=== PATIENT | female | born 1970 | race Caucasian/White ===

== ENCOUNTER 2020-09-21 08:37 | Outpatient (REF) | payer OTHER, SELFPAY ==
[2020-09-21 08:56] LABS: COVID-19 Test Negative (Negative)
== END 2020-09-21 08:38 | disposition home or self-care (01) ==
LOC: HO.EMPCOV 08:37
PROVIDERS: PCP Internal Medicine; Visit Provider Internal Medicine
DX: Z20.828 Contact with and (suspected) exposure to other viral communicable diseases (principal)
CPT/HCPCS: 87635; C9803

== ENCOUNTER 2020-09-25 09:58 | Outpatient (REF) | payer OTHER, SELFPAY ==
[2020-09-25 10:17] LABS: COVID-19 Test Negative (Negative)
== END 2020-09-25 09:59 | disposition home or self-care (01) ==
LOC: HO.EMPCOV 09:58
PROVIDERS: Visit Provider Internal Medicine
DX: Z20.828 Contact with and (suspected) exposure to other viral communicable diseases (principal)
CPT/HCPCS: 87635; C9803

== ENCOUNTER → 2020-10-11 11:03 | Outpatient (BNVA) | payer OTHER, SELFPAY | PROVIDERS: PCP Internal Medicine; Referring Provider Internal Medicine; Visit Provider Student in an Organized Health Care Education/Training Program | DX: Z13.89 Encounter for screening for other disorder (principal) ==

== ENCOUNTER 2020-10-16 14:52 | Outpatient (REF) | payer OTHER, SELFPAY ==
[2020-10-16 15:10] LABS: COVID-19 Test Negative (Negative)
== END 2020-10-16 14:53 | disposition home or self-care (01) ==
LOC: HO.EMPCOV 14:52
PROVIDERS: PCP Internal Medicine; Visit Provider Internal Medicine
DX: Z20.828 Contact with and (suspected) exposure to other viral communicable diseases (principal)
CPT/HCPCS: 87635; C9803

== ENCOUNTER 2020-10-18 06:20 | Outpatient (REF) | payer OTHER, SELFPAY ==
[2020-10-18 11:04] LABS: MANUAL DIFF FLAG NO
[2020-10-18 11:10] LABS: Basophils Absolute Auto 0.1 X10*3/uL (0.0-0.2); Basophils Percent Auto 0.6 % (0-2); Eosinophils Absolute Auto 0.2 X10*3/uL (0.0-0.4); Eosinophils Percent Auto 1.9 % (0-4); Hematocrit 36.1 % (37-47); Hemoglobin 11.8 g/dl (12.0-16.0); Imm Gran Abs Auto 0.02 X10*3/uL (0.00-0.03); Imm Gran Pct Auto 0.2 % (0.0-0.4); Lymphocytes Absolute Auto 1.9 X10*3/uL (1.2-4.9); Lymphocytes Percent Auto 22.8 % (20-40); Mean Corpuscular HGB Conc 32.7 g/dl (31.0-35.0); Mean Corpuscular Hemoglobin 30.6 pg (27.0-33.0); Mean Corpuscular Volume 93.8 fL (80-98); Mean Platelet Volume 11.2 fL (9.4-12.3); Monocytes Absolute Auto 0.4 X10*3/uL (0.1-1.2); Neutrophils Absolute Auto 5.8 X10*3/uL (2.0-8.3); Neutrophils Percent Auto 69.5 % (45-73); Platelet Count 280 X10*3/uL (160-400); Red Blood Count 3.85 X10*6/uL (4.20-5.50); Red Cell Distribution Width 13.6 % (11.0-16.0); White Blood Count 8.3 X10*3/uL (4.8-10.8)
[2020-10-18 11:37] LABS: Alanine Aminotransferase 13 U/L (0-31); Albumin Level 4.7 g/dL (3.5-5.0); Alkaline Phosphatase 61 U/L (39-117); Anion Gap 13 (12-20); Aspartate Amino Transferase 16 U/L (5-31); Bilirubin Total 0.4 mg/dL (0.0-1.0); Blood Urea Nitrogen 16 mg/dL (9-16); C Reactive Protein 0.46 mg/dL (< or = 0.50); Calcium 9.6 mg/dL (8.4-10.2); Carbon Dioxide 28 mmol/L (22-29); Chloride 105 mmol/L (96-108); Estimated Glomerular Filt Rate > 60; Glucose Random 91 mg/dL (60-115); Potassium 4.5 mmol/l (3.3-5.1); Sodium 141 mmol/L (135-145); Total Protein 7.1 g/dL (6.5-8.0)
[2020-10-18 11:56] LABS: HBS Num1 40.57 mIU/mL (0-7.99); HBc Num1 0.16 S/CO (0.00-0.79); Hepatitis B Core Antibody Nonreactive (Nonreactive); ~HepC Num1 0.13 S/CO (0.00-0.79); ~Hepatitis B Surface Antibody REACTIVE (Nonreactive); ~Hepatitis C Antibody Nonreactive (Nonreactive)
[2020-10-18 12:01] LABS: Erythrocyte Sedimentation Rate 9 MM/HR (0-20)
[2020-10-18 12:02] LABS: HBsAGNum1 0.22 S/CO (0.00-0.99); Hepatitis A Antibody IgM 0.15 Index (0-0.79); Hepatitis B Surface Antigen Negative (Negative); ~Hepatitis A Antibody IgM Nonreactive (Nonreactive)
[2020-10-19 14:03] LABS: Antibody to SS-A Antigen <1.0 NEG AI (<1.0 NEG); Antibody to SS-B Antigen <1.0 NEG AI (<1.0 NEG)
[2020-10-21 17:18] LABS: TS Negative Control Passed; TS Panel A 1; TS Panel B 0; TS Positive Control Passed; TSpotTB Negative (SeeBelow)
[2020-10-24 08:17] LABS: Vitamin D 25-OH, D2 <4 ng/mL; Vitamin D 25-OH, D3 52 ng/mL; Vitamin D 25-OH, Total 52 ng/mL (30-100)
== END 2020-10-18 06:21 | disposition home or self-care (01) ==
LOC: HO.HMGCLDS 06:20
PROVIDERS: PCP Internal Medicine; Visit Provider Student in an Organized Health Care Education/Training Program
DX: M05.9 Rheumatoid arthritis with rheumatoid factor, unspecified (principal)
CPT/HCPCS: 36415; 80053; 82306; 85025; 85652; 86140; 86235; 86481; 86704; 86706; 86709; 86803; 87340

== ENCOUNTER 2020-11-07 09:11 | Outpatient (REF) | payer OTHER, SELFPAY ==
[2020-11-07 09:28] LABS: COVID-19 Test Negative (Negative)
== END 2020-11-07 09:12 | disposition home or self-care (01) ==
LOC: HO.EMPCOV 09:11
PROVIDERS: Visit Provider Internal Medicine
DX: Z20.822 Contact with and (suspected) exposure to COVID-19 (principal)
CPT/HCPCS: 36415; 87635; C9803

== ENCOUNTER → 2020-11-29 15:27 | Outpatient (BNVA) | payer BC, SELFPAY | PROVIDERS: PCP Internal Medicine; Visit Provider Student in an Organized Health Care Education/Training Program | DX: M05.9 Rheumatoid arthritis with rheumatoid factor, unspecified (principal); E55.9 Vitamin D deficiency, unspecified | CPT/HCPCS: 90471; 90670 ==

== ENCOUNTER 2020-12-26 08:51 | Outpatient (REF) | payer OTHER, SELFPAY ==
[2020-12-26 09:09] LABS: COVID-19 Test Negative (Negative)
== END 2020-12-26 08:52 | disposition home or self-care (01) ==
LOC: HO.EMPCOV 08:51
PROVIDERS: Visit Provider Internal Medicine
DX: Z11.52 Encounter for screening for COVID-19 (principal)
CPT/HCPCS: 36415; 87635; C9803

== ENCOUNTER 2021-04-09 08:44 | Outpatient (REF) | payer BC, SELFPAY ==
[2021-04-09 11:12] LABS: MANUAL DIFF FLAG NO
[2021-04-09 11:20] LABS: Basophils Absolute Auto 0.1 X10*3/uL (0.0-0.2); Basophils Percent Auto 0.7 % (0-2); Eosinophils Absolute Auto 0.2 X10*3/uL (0.0-0.4); Eosinophils Percent Auto 2.4 % (0-4); Hematocrit 36.6 % (37-47); Imm Gran Abs Auto 0.01 X10*3/uL (0.00-0.03); Imm Gran Pct Auto 0.1 % (0.0-0.4); Lymphocytes Absolute Auto 2.4 X10*3/uL (1.2-4.9); Lymphocytes Percent Auto 32.1 % (20-40); Mean Corpuscular HGB Conc 32.8 g/dl (31.0-35.0); Mean Corpuscular Hemoglobin 30.6 pg (27.0-33.0); Mean Corpuscular Volume 93.4 fL (80-98); Monocytes Absolute Auto 0.6 X10*3/uL (0.1-1.2); Monocytes Percent Auto 7.3 % (2-11); Neutrophils Absolute Auto 4.3 X10*3/uL (2.0-8.3); Neutrophils Percent Auto 57.4 % (45-73); Platelet Count 296 X10*3/uL (160-400); Red Blood Count 3.92 X10*6/uL (4.20-5.50); Red Cell Distribution Width 12.7 % (11.0-16.0); White Blood Count 7.6 X10*3/uL (4.8-10.8)
[2021-04-09 11:38] LABS: Alanine Aminotransferase 16 U/L (0-31); Albumin Level 4.5 g/dL (3.5-5.0); Alkaline Phosphatase 62 U/L (39-117); Anion Gap 13 (12-20); Aspartate Amino Transferase 19 U/L (5-31); Bilirubin Total 0.4 mg/dL (0.0-1.0); Blood Urea Nitrogen 11 mg/dL (9-16); C Reactive Protein 0.11 mg/dL (< or = 0.50); Calcium 9.6 mg/dL (8.4-10.2); Carbon Dioxide 24 mmol/L (22-29); Chloride 108 mmol/L (96-108); Estimated Glomerular Filt Rate > 60; Glucose Random 93 mg/dL (60-115); Potassium 4.5 mmol/L (3.3-5.1); Sodium 140 mmol/L (135-145); Total Protein 7.1 g/dL (6.5-8.0)
[2021-04-09 12:41] LABS: Erythrocyte Sedimentation Rate 11 MM/HR (0-20)
== END 2021-04-09 08:45 | disposition home or self-care (01) ==
LOC: HO.HMGCLDS 08:44
PROVIDERS: PCP Internal Medicine; Visit Provider Student in an Organized Health Care Education/Training Program
DX: M05.9 Rheumatoid arthritis with rheumatoid factor, unspecified (principal)
CPT/HCPCS: 36415; 80053; 85025; 85652; 86140

== ENCOUNTER → 2021-04-11 15:47 | Outpatient (BNVA) | payer BC, SELFPAY | PROVIDERS: PCP Internal Medicine; Visit Provider Student in an Organized Health Care Education/Training Program | DX: M05.9 Rheumatoid arthritis with rheumatoid factor, unspecified (principal) ==

== ENCOUNTER 2021-07-13 06:10 | Outpatient (REF) | payer BC, SELFPAY ==
[2021-07-13 11:29] LABS: Appearance Urine CLEAR; Color Urine YELLOW; Glucose Urine UA NEG (NEG); Leukocyte Esterase Urine NEG (NEG); Nitrite Urine NEG (NEG); Specific Gravity - Urine 1.015 (1.005-1.025); UACC Culture Trigger NO; Urine Blood TRACE (NEG); Urine Ketones NEG (NEG); Urine Protein NEG (NEG-TRACE)
[2021-07-13 11:29] LABS: MANUAL DIFF FLAG NO
[2021-07-13 11:38] LABS: Basophils Absolute Auto 0.1 X10*3/uL (0.0-0.2); Basophils Percent Auto 0.6 % (0-2); Eosinophils Absolute Auto 0.1 X10*3/uL (0.0-0.4); Eosinophils Percent Auto 1.5 % (0-4); Hematocrit 37.4 % (37-47); Hemoglobin 12.2 g/dl (12.0-16.0); Imm Gran Abs Auto 0.03 X10*3/uL (0.00-0.03); Imm Gran Pct Auto 0.3 % (0.0-0.4); Lymphocytes Absolute Auto 2.1 X10*3/uL (1.2-4.9); Lymphocytes Percent Auto 23.1 % (20-40); Mean Corpuscular HGB Conc 32.6 g/dl (31.0-35.0); Mean Corpuscular Hemoglobin 30.7 pg (27.0-33.0); Monocytes Absolute Auto 0.6 X10*3/uL (0.1-1.2); Monocytes Percent Auto 6.7 % (2-11); Neutrophils Absolute Auto 6.2 X10*3/uL (2.0-8.3); Neutrophils Percent Auto 67.8 % (45-73); Platelet Count 281 X10*3/uL (160-400); Red Blood Count 3.98 X10*6/uL (4.20-5.50); White Blood Count 9.1 X10*3/uL (4.8-10.8)
[2021-07-13 11:44] LABS: Estimated Average Glucose 114 mg/dL; Hemoglobin A1c % 5.6 %
[2021-07-13 11:58] LABS: Alanine Aminotransferase 21 U/L (0-31); Albumin Level 4.4 g/dL (3.5-5.0); Alkaline Phosphatase 59 U/L (39-117); Anion Gap 14 (12-20); Aspartate Amino Transferase 19 U/L (5-31); Bilirubin Total 0.3 mg/dL (0.0-1.0); Blood Urea Nitrogen 15 mg/dL (9-16); Calcium 9.2 mg/dL (8.4-10.2); Carbon Dioxide 24 mmol/L (22-29); Chloride 108 mmol/L (96-108); Cholesterol 187 mg/dL; Estimated Glomerular Filt Rate > 60; Glucose Fasting 106 mg/dL (60-99); HDL Cholesterol 37 mg/dL; LDL Cholesterol Calculated 120 mg/dl; Potassium 4.7 mmol/L (3.3-5.1); Sodium 141 mmol/L (135-145); Triglycerides 150 mg/dL
[2021-07-13 12:12] LABS: Vitamin D 25-OH Total 32.8 ng/mL (>30)
[2021-07-13 12:18] LABS: RBC Urine 0-2 /HPF (0); Squamous Epithelial Cell Urine 1+ /LPF; WBC Urine 0 /HPF (0-4)
== END 2021-07-13 06:11 | disposition home or self-care (01) ==
LOC: HO.HMGCLDS 06:10
PROVIDERS: PCP Internal Medicine; Visit Provider Student in an Organized Health Care Education/Training Program
DX: M05.9 Rheumatoid arthritis with rheumatoid factor, unspecified (principal); E78.00 Pure hypercholesterolemia, unspecified; R73.01 Impaired fasting glucose; E55.9 Vitamin D deficiency, unspecified
CPT/HCPCS: 36415; 80053; 80061; 81001; 82306; 83036; 84443; 85025; 86140

== ENCOUNTER → 2021-08-17 13:03 | Outpatient (BNVA) | payer BC, SELFPAY | PROVIDERS: PCP Internal Medicine; Visit Provider Nurse Practitioner Family ==

== ENCOUNTER 2021-09-20 15:03 | Outpatient (REF) | payer BC, SELFPAY ==
--- NOTE | ~2021-09-20 | MM_ITS ---
EXAMINATION: MM SCREENING DIGITAL BREAST TOMOSYNTHESIS, BILATERAL CLINICAL INFORMATION: Screening. Asymptomatic. The lifetime risk of breast cancer based on the Tyrer-Cuzick Model is 5%. COMPARISON: Mammography: 08/20/2019, 12/03/2016, 11/14/2015 TECHNIQUE: Digital breast tomosynthesis is performed in both the craniocaudal and mediolateral oblique views along with computer-aided detection (CAD). Synthesized 2D images are generated from the tomosynthesis. FINDINGS: There are scattered areas of fibroglandular density (ACR BI-RADS breast composition Category b). There are no significant masses, abnormal calcifications, or other abnormalities. No developing density or significant change from prior studies. Incidental chronic coarse calcifications right axillary nodes again seen, likely old granulomatous changes. MM/MM tomosynthesis screening BI IMPRESSION: No mammographic evidence of malignancy. ASSESSMENT: BI-RADS 2: Benign RECOMMENDATION: Routine annual mammography screening. This patient's information was entered into a reminder system with a target due date for their next mammogram.
== END 2021-09-20 15:04 | disposition home or self-care (01) ==
LOC: HO.MAMMO 15:03
PROVIDERS: Visit Provider Internal Medicine
DX: Z12.31 Encounter for screening mammogram for malignant neoplasm of breast (principal)
CPT/HCPCS: 77063; 77067

== ENCOUNTER 2021-09-24 11:49 | Outpatient (REF) | payer BC, SELFPAY ==
[2021-09-24 12:43] LABS: Influenza A PCR NEGATIVE (Negative); Influenza B PCR NEGATIVE (Negative); Resp Syncy Virus RNA Qual PCR NEGATIVE (Negative); SARS COV2 PCR INHOUSE NEGATIVE (Negative)
== END 2021-09-24 11:50 | disposition home or self-care (01) ==
LOC: HO.LNP 11:49
PROVIDERS: Visit Provider Physician Assistant Medical
DX: J06.9 Acute upper respiratory infection, unspecified (principal); Z20.822 Contact with and (suspected) exposure to COVID-19
CPT/HCPCS: 0241U

== ENCOUNTER 2021-12-24 06:47 | Outpatient (REF) | payer OTHER, SELFPAY ==
[2021-12-24 11:31] LABS: MANUAL DIFF FLAG NO
[2021-12-24 11:34] LABS: Basophils Absolute Auto 0.1 X10*3/uL (0.0-0.2); Basophils Percent Auto 0.5 % (0-2); Eosinophils Absolute Auto 0.1 X10*3/uL (0.0-0.4); Eosinophils Percent Auto 1.4 % (0-4); Hemoglobin 12.7 g/dl (12.0-16.0); Imm Gran Abs Auto 0.03 X10*3/uL (0.00-0.03); Imm Gran Pct Auto 0.3 % (0.0-0.4); Lymphocytes Absolute Auto 2.8 X10*3/uL (1.2-4.9); Lymphocytes Percent Auto 29.6 % (20-40); Mean Corpuscular HGB Conc 32.6 g/dl (31.0-35.0); Mean Corpuscular Hemoglobin 30.2 pg (27.0-33.0); Mean Corpuscular Volume 92.6 fL (80.0-98.0); Mean Platelet Volume 11.4 fL (9.4-12.3); Monocytes Absolute Auto 0.6 X10*3/uL (0.1-1.2); Monocytes Percent Auto 6.2 % (2-11); Neutrophils Absolute Auto 5.9 x10*3/uL (2.0-8.3); Platelet Count 317 X10*3/uL (160-400); Red Blood Count 4.21 X10*6/uL (4.20-5.50); Red Cell Distribution Width 13.1 % (11.0-16.0); White Blood Count 9.5 X10*3/uL (4.8-10.8)
[2021-12-24 12:02] LABS: Alanine Aminotransferase 13 U/L (0-31); Albumin Level 4.5 g/dL (3.5-5.0); Alkaline Phosphatase 74 U/L (39-117); Anion Gap 12 (12-20); Aspartate Amino Transferase 18 U/L (5-31); Bilirubin Total 0.3 mg/dL (0.0-1.0); Blood Urea Nitrogen 12 mg/dL (9-16); C Reactive Protein 0.14 mg/dL (< or = 0.50); Calcium 9.8 mg/dL (8.4-10.2); Carbon Dioxide 22 mmol/L (22-29); Chloride 108 mmol/L (96-108); Cholesterol 170 mg/dL; Estimated Glomerular Filt Rate > 60; Glucose Fasting 102 mg/dL (60-99); HDL Cholesterol 28 mg/dL; LDL Cholesterol Calculated 109 mg/dl; Potassium 4.2 mmol/L (3.3-5.1); Sodium 138 mmol/L (135-145); Total Protein 7.3 g/dL (6.5-8.0); Triglycerides 169 mg/dL
[2021-12-24 12:09] LABS: TSH reflex Free T4 2.55 uIU/mL (0.32-4.0)
[2021-12-24 12:16] LABS: Erythrocyte Sedimentation Rate 13 MM/HR (0-20)
[2021-12-24 12:20] LABS: Estimated Average Glucose 117 mg/dL; Hemoglobin A1c % 5.7 %
== END 2021-12-24 06:48 | disposition home or self-care (01) ==
LOC: HO.HMGCLDS 06:47
PROVIDERS: PCP Internal Medicine; Visit Provider Nurse Practitioner Family
DX: Z00.00 Encounter for general adult medical examination without abnormal findings (principal); R73.01 Impaired fasting glucose; E78.00 Pure hypercholesterolemia, unspecified; E55.9 Vitamin D deficiency, unspecified; M05.9 Rheumatoid arthritis with rheumatoid factor, unspecified
CPT/HCPCS: 36415; 80053; 80061; 82306; 83036; 84443; 85025; 85652; 86140

== ENCOUNTER → 2021-12-27 07:45 | Outpatient (BNVA) | payer OTHER, SELFPAY | PROVIDERS: PCP Internal Medicine; Visit Provider Nurse Practitioner Family ==

== ENCOUNTER 2022-05-10 06:57 | Outpatient (REF) | payer OTHER, SELFPAY ==
[2022-05-10 11:46] LABS: MANUAL DIFF FLAG NO
[2022-05-10 11:49] LABS: Basophils Absolute Auto 0.1 X10*3/uL (0.0-0.2); Basophils Percent Auto 0.5 % (0-2); Eosinophils Absolute Auto 0.1 X10*3/uL (0.0-0.4); Eosinophils Percent Auto 1.4 % (0-4); Hematocrit 38.4 % (37.0-47.0); Hemoglobin 12.9 g/dl (12.0-16.0); Imm Gran Abs Auto 0.04 X10*3/uL (0.00-0.03); Imm Gran Pct Auto 0.4 % (0.0-0.4); Lymphocytes Absolute Auto 2.5 X10*3/uL (1.2-4.9); Lymphocytes Percent Auto 26.2 % (20-40); Mean Corpuscular HGB Conc 33.6 g/dl (31.0-35.0); Mean Corpuscular Hemoglobin 31.4 pg (27.0-33.0); Mean Corpuscular Volume 93.4 fL (80.0-98.0); Mean Platelet Volume 10.9 fL (9.4-12.3); Monocytes Absolute Auto 0.5 X10*3/uL (0.1-1.2); Monocytes Percent Auto 5.7 % (2-11); Neutrophils Absolute Auto 6.3 x10*3/uL (2.0-8.3); Neutrophils Percent Auto 65.8 % (45-73); Platelet Count 331 X10*3/uL (160-400); Red Blood Count 4.11 X10*6/uL (4.20-5.50); Red Cell Distribution Width 13.2 % (11.0-16.0); White Blood Count 9.5 X10*3/uL (4.8-10.8)
[2022-05-10 12:27] LABS: Alanine Aminotransferase 19 U/L (0-31); Albumin Level 4.5 g/dL (3.5-5.0); Alkaline Phosphatase 69 U/L (39-117); Anion Gap 13 (12-20); Aspartate Amino Transferase 20 U/L (5-31); Bilirubin Total 0.4 mg/dL (0.0-1.0); Blood Urea Nitrogen 13 mg/dL (9-16); C Reactive Protein 0.06 mg/dL (< or = 0.50); Calcium 9.3 mg/dL (8.4-10.2); Carbon Dioxide 22 mmol/L (22-29); Chloride 110 mmol/L (96-108); Cholesterol 181 mg/dL; Estimated Glomerular Filt Rate > 60; Glucose Fasting 111 mg/dL (60-99); HDL Cholesterol 34 mg/dL; LDL Cholesterol Calculated 122 mg/dl; Potassium 4.7 mmol/L (3.3-5.1); Sodium 140 mmol/L (135-145); Total Protein 7.2 g/dL (6.5-8.0); Triglycerides 129 mg/dL
[2022-05-10 12:39] LABS: Erythrocyte Sedimentation Rate 7 MM/HR (0-20)
== END 2022-05-10 06:58 | disposition home or self-care (01) ==
LOC: HO.HMGCLDS 06:57
PROVIDERS: PCP Internal Medicine; Visit Provider Nurse Practitioner Family
DX: M05.9 Rheumatoid arthritis with rheumatoid factor, unspecified (principal); E78.00 Pure hypercholesterolemia, unspecified
CPT/HCPCS: 36415; 80053; 80061; 85025; 85652; 86140

== ENCOUNTER 2022-09-09 06:40 | Outpatient (REF) | payer OTHER, SELFPAY ==
[2022-09-09 11:30] LABS: MANUAL DIFF FLAG NO
[2022-09-09 11:47] LABS: Basophils Absolute Auto 0.1 X10*3/uL (0.0-0.2); Basophils Percent Auto 0.7 % (0-2); Eosinophils Absolute Auto 0.1 X10*3/uL (0.0-0.4); Eosinophils Percent Auto 1.6 % (0-4); Hematocrit 37.6 % (37.0-47.0); Hemoglobin 12.2 g/dl (12.0-16.0); Imm Gran Abs Auto 0.01 X10*3/uL (0.00-0.03); Imm Gran Pct Auto 0.1 % (0.0-0.4); Lymphocytes Percent Auto 28.6 % (20-40); Mean Corpuscular HGB Conc 32.4 g/dl (31.0-35.0); Mean Corpuscular Hemoglobin 30.5 pg (27.0-33.0); Mean Platelet Volume 10.8 fL (9.4-12.3); Monocytes Absolute Auto 0.4 X10*3/uL (0.1-1.2); Monocytes Percent Auto 6.3 % (2-11); Neutrophils Absolute Auto 4.4 x10*3/uL (2.0-8.3); Neutrophils Percent Auto 62.7 % (45-73); Platelet Count 289 X10*3/uL (160-400); Red Cell Distribution Width 13.2 % (11.0-16.0)
[2022-09-09 12:28] LABS: Alanine Aminotransferase 15 U/L (0-31); Aspartate Amino Transferase 14 U/L (5-31); Erythrocyte Sedimentation Rate 7 MM/HR (0-20); Estimated Glomerular Filt Rate > 60; Vitamin D 25-OH Total 20.4 ng/mL (>30)
== END 2022-09-09 06:41 | disposition home or self-care (01) ==
LOC: HO.HMGCLDS 06:40
PROVIDERS: PCP Internal Medicine; Visit Provider Nurse Practitioner Family
DX: M05.9 Rheumatoid arthritis with rheumatoid factor, unspecified (principal); Z79.899 Other long term (current) drug therapy
CPT/HCPCS: 36415; 82306; 82565; 84450; 84460; 85025; 85652; 86140

== ENCOUNTER 2022-09-26 14:46 | Outpatient (REF) | payer OTHER, SELFPAY ==
--- NOTE | ~2022-09-26 | MM_ITS ---
EXAMINATION: MM SCREENING DIGITAL BREAST TOMOSYNTHESIS, BILATERAL CLINICAL INFORMATION: Screening. Asymptomatic. The lifetime risk of breast cancer based on the Tyrer-Cuzick Model is 4.7%. COMPARISON: Mammography: September 20, 2021 and studies dating back to September 28, 2014 TECHNIQUE: Digital breast tomosynthesis is performed in both the craniocaudal and mediolateral oblique views along with computer-aided detection (CAD). Synthesized 2D images are generated from the tomosynthesis. FINDINGS: There are scattered areas of fibroglandular density (ACR BI-RADS breast composition Category b). There are no significant masses, abnormal calcifications, or other abnormalities. MM/MM tomosynthesis screening BI IMPRESSION: No significant changes from prior exam. ASSESSMENT: BI-RADS 1: Negative RECOMMENDATION: Routine annual mammography screening. This patient's information was entered into a reminder system with a target due date for their next mammogram.
--- NOTE | ~2022-09-26 | MM_ITS ---
EXAMINATION: BONE DENSITOMETRY CLINICAL INDICATION: Asymptomatic menopausal state. COMPARISON: Previous BD dated 07/01/2017 and baseline BD dated 05/09/2014. TECHNIQUE: Using a [employer] DXA System (software version: 13.1) manufactured by [employer], dual-energy x-ray absorptiometry was performed of the lumbar spine and left hip. The images are of good technical quality. Summary results are attached. FINDINGS: AP SPINE L1-L4: Current: BMD 0.910 g/cm2, Z-score -1.5, T-score -2.2, osteopenia, 10.3% decrease from previous, 11.9% decrease from baseline (<5% change is not significant). Prior: BMD 1.014 g/cm2. Baseline: BMD 1.033 g/cm2. LEFT FEMUR, NECK: Current: BMD 0.692 g/cm2, Z-score -1.5, T-score -2.5, osteoporosis. Prior: BMD 0.778 g/cm2. Baseline: BMD 0.801 g/cm2. LEFT FEMUR, TOTAL: Current: BMD 0.697 g/cm2, Z-score -1.8, T-score -2.5, osteoporosis, 6.2% decrease from previous, 7.4% decrease from baseline (<5% change is not significant). Prior: BMD 0.743 g/cm2. Baseline: BMD 0.753 g/cm2. IDENTIFIED RISK FACTORS: Low calcium intake, history of fracture (adult). Early menopause, secondary osteoporosis, glucocorticoids (chronic). HISTORY OF FRACTURE: Humerus/shoulder. MEDICATIONS: Calcium supplements or multivitamin, vitamin D. MM/XR DEXA axial skeleton IMPRESSION: 1. DIAGNOSIS: Osteoporosis based on the lowest T-score value of -2.5 in the femoral neck and total femur applying World Health Organization criteria. 2. 10-YEAR FRACTURE RISK PREDICTION, FRAX: According to the guidelines, FRAX calculation should only be performed on patients in the osteopenia bone density category. Therefore, FRAX was not performed on this patient. 3. Treatment Recommendations: NOF guidelines recommend consideration for treatment in postmenopausal women and men age 50 and older presenting with the following: -A hip or vertebral (clinical or morphometric) fracture. -T-score less than or equal to -2.5 at the femoral neck or spine after appropriate evaluation to exclude secondary causes. -Low bone mass at the hip or spine and a 10-year fracture probability by FRAX of greater than or equal to 3% for hip fracture or greater than or equal to 20% for major osteoporotic fracture based on the [place] adapted WHO algorithm. 4. Other Recommendations: All treatment decisions require clinical judgment and consideration of individual patient factors, including patient preferences, comorbidities, previous drug use, risk factors not captured in the FRAX model (e.g. frailty, falls, vitamin D deficiency, increased bone turnover, interval significant decline in bone density) and possible under or overestimation of fracture risk by FRAX. Additional medical evaluation for secondary cause of low bone mineral density may be appropriate. FUTURE SCAN RECOMMENDATION: People with diagnosed cases of osteoporosis or at high risk for fracture should have regular bone mineral density tests. For patients eligible for Medicare, routine testing is allowed once every 2 years. The testing frequency can be increased to one year for patients who have rapidly progressing disease, those who are receiving or discontinuing medical therapy to restore bone mass, or have additional risk factors.
== END 2022-09-26 14:47 | disposition home or self-care (01) ==
LOC: HO.MAMMO 14:46
PROVIDERS: PCP Internal Medicine; Visit Provider Internal Medicine
DX: Z12.31 Encounter for screening mammogram for malignant neoplasm of breast (principal); Z13.820 Encounter for screening for osteoporosis; Z78.0 Asymptomatic menopausal state; M85.80 Other specified disorders of bone density and structure, unspecified site; M05.9 Rheumatoid arthritis with rheumatoid factor, unspecified
CPT/HCPCS: 77063; 77067; 77080

== ENCOUNTER → 2022-11-27 13:51 | Outpatient (BNVA) | payer OTHER, SELFPAY | PROVIDERS: PCP Internal Medicine; Visit Provider Nurse Practitioner Family | DX: Z13.89 Encounter for screening for other disorder (principal) ==

== ENCOUNTER → 2022-12-02 15:38 | Outpatient (BNVA) | payer OTHER, SELFPAY | PROVIDERS: PCP Internal Medicine; Visit Provider Nurse Practitioner Family | DX: Z13.89 Encounter for screening for other disorder (principal) ==

== ENCOUNTER 2023-01-31 06:24 | Outpatient (REF) | payer OTHER, SELFPAY ==
[2023-01-31 11:32] LABS: MANUAL DIFF FLAG NO
[2023-01-31 11:56] LABS: Basophils Absolute Auto 0.1 X10*3/uL (0.0-0.2); Basophils Percent Auto 0.6 % (0-2); Eosinophils Absolute Auto 0.2 X10*3/uL (0.0-0.4); Eosinophils Percent Auto 1.8 % (0-4); Hematocrit 37.6 % (37.0-47.0); Hemoglobin 12.4 g/dl (12.0-16.0); Imm Gran Abs Auto 0.06 X10*3/uL (0.00-0.03); Imm Gran Pct Auto 0.7 % (0.0-0.4); Lymphocytes Absolute Auto 2.4 X10*3/uL (1.2-4.9); Lymphocytes Percent Auto 28.8 % (20-40); Mean Corpuscular Hemoglobin 30.5 pg (27.0-33.0); Mean Corpuscular Volume 92.6 fL (80.0-98.0); Mean Platelet Volume 10.7 fL (9.4-12.3); Monocytes Absolute Auto 0.6 X10*3/uL (0.1-1.2); Monocytes Percent Auto 6.6 % (2-11); Neutrophils Absolute Auto 5.2 x10*3/uL (2.0-8.3); Neutrophils Percent Auto 61.5 % (45-73); Platelet Count 286 X10*3/uL (160-400); Red Blood Count 4.06 X10*6/uL (4.20-5.50); Red Cell Distribution Width 13.2 % (11.0-16.0); White Blood Count 8.5 X10*3/uL (4.8-10.8)
[2023-01-31 12:34] LABS: Estimated Average Glucose 120 mg/dL; Hemoglobin A1c % 5.8 %
[2023-01-31 12:35] LABS: Alanine Aminotransferase 26 U/L (0-31); Albumin Level 4.4 g/dL (3.5-5.0); Alkaline Phosphatase 64 U/L (39-117); Anion Gap 11 (12-20); Aspartate Amino Transferase 22 U/L (5-31); Bilirubin Total 0.5 mg/dL (0.0-1.0); Blood Urea Nitrogen 11 mg/dL (9-16); Calcium 9.5 mg/dL (8.4-10.2); Carbon Dioxide 26 mmol/L (22-29); Chloride 110 mmol/L (96-108); Cholesterol 174 mg/dL; Estimated Glomerular Filt Rate > 60; Glucose Fasting 103 mg/dL (60-99); Glucose Random 104 mg/dL (60-115); HDL Cholesterol 29 mg/dL; LDL Cholesterol Calculated 110 mg/dl; Potassium 4.6 mmol/L (3.3-5.1); Sodium 142 mmol/L (135-145); Total Protein 6.8 g/dL (6.5-8.0); Triglycerides 175 mg/dL
[2023-01-31 12:41] LABS: TSH reflex Free T4 2.74 uIU/mL (0.32-4.0); Vitamin D 25-OH Total 15.4 ng/mL (>30)
== END 2023-01-31 06:25 | disposition home or self-care (01) ==
LOC: HO.HMGCLDS 06:24
PROVIDERS: Absent Provider Nurse Practitioner Family; PCP Internal Medicine; Visit Provider Internal Medicine
DX: I10 Essential (primary) hypertension (principal); E78.00 Pure hypercholesterolemia, unspecified; R73.01 Impaired fasting glucose; E55.9 Vitamin D deficiency, unspecified; M05.9 Rheumatoid arthritis with rheumatoid factor, unspecified
CPT/HCPCS: 36415; 80053; 80061; 82306; 83036; 84443; 85025

== ENCOUNTER 2023-05-03 11:36 | Outpatient (REF) | payer OTHER, SELFPAY ==
[2023-05-03 13:37] LABS: C Reactive Protein 0.16 mg/dL (< or = 0.50)
[2023-05-03 14:27] LABS: Erythrocyte Sedimentation Rate 10 MM/HR (0-20)
== END 2023-05-03 11:37 | disposition home or self-care (01) ==
LOC: HO.HMGCLDS 11:36
PROVIDERS: PCP Internal Medicine; Visit Provider Nurse Practitioner Family
DX: M05.9 Rheumatoid arthritis with rheumatoid factor, unspecified (principal)
CPT/HCPCS: 36415; 85652; 86140

== ENCOUNTER 2023-05-06 14:22 | Outpatient (AMB) | payer OTHER, SELFPAY ==
[2023-05-06 14:33] VITALS: BP 108/62; PULSE 76; TEMP 36.9; O2SAT 98; BMI 25.1
--- NOTE | 2023-05-06 14:33 | MHC.OFFVIS ---
Intake Vital Signs 05/06/23 14:33 Height 5 ft 3 in Weight 141 lb 12.116 oz BMI 25.1 BP 108/62 Blood Pressure Location Rt brachial Position Sitting Pulse 76 Pulse Source Pulse Oximeter Temp 98.4 F Temp Source Skin Pulse Oximetry (%) 98 Intake Visit Reasons: rheumatoid arthritis Intake Note: Pt seen today for RA follow up. Reports PCP referred her to ENDO for Osteopenia, but at last visit Andreea mentioned to her that she could also manage her Osteopenia. Manager [employer] Required: No Accompanied by: Self / Same As Patient Allergies acetaminophen [From VICODIN] Allergy (Intermediate, Verified 05/06/23 14:36) ITCHING hydrocodone [From VICODIN] Allergy (Intermediate, Verified 05/06/23 14:36) ITCHING tylenol Allergy (Intermediate, Uncoded 05/06/23 14:36) Itching vicodin Allergy (Intermediate, Uncoded 05/06/23 14:36) Itching Medication List - Last Reconciled 05/06/23 by Christi Antoine MD atorvastatin 40 mg PO DAILY 90 days bisacodyl (Dulcolax (bisacodyl)) 10 mg (2 x 5 mg) PO ONCE 1 day cholecalciferol (vitamin D3) 125 mcg PO QWEEK 90 days etanercept (Enbrel SureClick) 50 mg subcut QWEEK gabapentin 300 mg PO BEDTIME 90 days latanoprost 0.005% 1 drp ophthalmic (eye) BEDTIME lorazepam 1 mg PO BEDTIME PRN 90 days nadolol 40 mg (2 x 20 mg) PO DAILY 90 days paroxetine HCl 40 mg PO DAILY 90 days polyethylene glycol 3350 (Miralax) 238 grams PO ONCE sumatriptan succinate 50 mg PO Q2-4H PRN 90 days umeclidinium-vilanterol 62.5-25 mcg/actuation (Anoro Ellipta) 1 inh inhalation Q24H 90 days HPI HPI Comments History of Present Illness Details 52-year-old female with seropositive RA returns for follow-up. Doing about the same overall. Continues to have pain and stiffness in her hands and fingers. Morning stiffness lasting 1-2 hours. She takes naproxen 440 mg 3 to 4 times a week to help with her morning stiffness. Denies any significant joint swelling. Compliant with Enbrel. She states that she feels that Enbrel worked better initially. Patient states that she was diagnosed with COPD many years ago. Over the last year she has been getting slightly more short of breath. She states that she lives in a 3 story house and going up 3 flights of stairs gets her out of breath. She wants to discuss treatment options for osteoporosis. As perlast visit with Monet philippe: On Enbrel. She is tolerating Enbrel well. Patient admits to intermittent continued morning stiffness and pain in her hands that she states is minimal. She reports pain and swelling in the left 3rd PIP that started 3 weeks ago, she states the whole finger swelled and she had to cut her ring off. She states that swelling is resolving and she still has some discomfort with a rubber band tension feeling, range of motion and pain are improving. She states that her back pain is stable at this time. She went to [place] last week and states she felt great. She states that she has an appt with endocrine next month for newly diagnosed osteoporosis. She reports she does plan to have invasive dental work- root canal and crown in the next few weeks. She follows optalmology for glaucoma and severe dry eye, every 3 months. She denies history of iritis, uveitis, inflammatory bowel, Raynaud's or oral ulcers. She plans to complete monitoring blood work for her PCP next month. [facility] Medical History (Updated 05/06/23 @ 15:55 by Christi Antoine MD) Anxiety COPD (chronic obstructive pulmonary disease) Impaired fasting glucose Migraine Osteopenia Pure hypercholesterolemia Seropositive rheumatoid arthritis Shortness of breath Vitamin D deficiency Surgical History Previous section S/P anal fissurectomy Status post left foot surgery Family History Father Hyperlipidemia Paternal Grandfather Cardiovascular disease Social History Housing: Apartment Alcohol intake: current Alcohol intake frequency: holidays/special occasions only Alcohol type: wine Patient Tobacco Use Status: Former Tobacco user Tobacco use type: Cigarette Cigarettes Per Day: 20 Years Smoked: 20 e-Cigarette/Vaping Use: Never Used Second Hand Smoke Exposure: No service: No Current occupational status: employed Cognitive needs: No Hearing needs: No Vision needs: No Review of Systems Card Reports dyspnea on exertion Resp Reports dyspnea on exertion Musc Reports arthralgias and Reports stiffness Physical Exam Vital Signs: Last Vital Signs Temp 98.4 F 05/06/23 14:33 Pulse 76 05/06/23 14:33 BP 108/62 05/06/23 14:33 Pulse Ox 98 05/06/23 14:33 BMI result Body Mass Index 25.1 Const General: cooperative, healthy appearing and comfortable Nutritional Appearance: average body habitus Orientation/consciousness: patient oriented x3 Limitations: no limitations HEENT Head: Yes normocephalic and Yes atraumatic Mouth: moist mucous membranes Resp Effort & Inspection: normal respiratory effort and able to speak in complete sentences Auscultation: clear to auscultation bilaterally Cardio Rate: regular rate Rhythm: regular rhythm Heart sounds: S1 normal heart sound present GI Inspection: No distended Palpation (GI): Soft to palpation and nontender Neuro General: patient oriented x3 Extrem Other: Left wrist pain with full flexion Left 5th MCP tenderness and minimal swelling Left 3rd PIP tenderness and swelling. No DIP tenderness Right wrist pain with full flexion Right 5th MCP tenderness and minimal swelling Patient global 5 Physician global 4 Assessment & Plan Assessment & Plan (1) Seropositive rheumatoid arthritis: Comment: +RF-ve REPACKER dx around 2018 Arava 12/2019- 11/2020 unclear why stopped. Oral and subcutaneous methotrexate- GI upset and headaches Humira -07/2021 ineffective Enbrel - 07/2021- present Code(s): M05.9 - Rheumatoid arthritis with rheumatoid factor, unspecified Plan: Seropositive rheumatoid arthritis (+ RF, CCP-). X-rays of hands with periarticular osteopenia. Patient continues to have joint pain and morning stiffness of her hands. Multiple tender joints on exam. Inflammatory markers normal. Start prednisone therapeutic taper trial for 3 weeks. Advised patient to call the office after completion of the taper and report her symptoms. If there is significant improvement then will consider modifying her DMARD Twenty-five pack year smoking history. History of COPD. Quit in 2004. Respiratory symptoms getting slightly worse. Ordered PFTs to evaluate for underlying interstitial lung disease. Will check 2D echo to evaluate for pulmonary hypertension (2) Osteoporosis: Comment: DEXA 09/2022 T-score -2.5 left femoral neck Code(s): M81.0 - Age-related osteoporosis without current pathological fracture Qualifiers: Osteoporosis type: unspecified Presence of current pathological fracture: without current pathological fracture Qualified Code(s): M81.0 - Age-related osteoporosis without current pathological fracture Plan: Discussed risks and benefits of bisphosphonate therapy. Patient agreed to proceed. Start alendronate 70 mg once weekly. Recent vitamin-D level low. Patient is taking vitamin-D but is not entirely sure of the dose. Advised patient to call the office to confirm her dose Plan I spent 31 minutes reviewing patient's chart, evaluating patient, ordering diagnostic workup, counseling patient and documenting in the chart Orders: Orders CA echo transthoracic complete Today R06.02 - Shortness of breath PFT pulmonary function test Today R06.02 - Shortness of breath Medications: New prednisone Take 3 tabs by mouth once daily with breakfast for 1 week then 2 tabs daily for 1 week then 1 tab daily for 1 week then stop 42 tabs 0RF alendronate Take 1 tab once weekly on an empty stomach with plenty of water (at least 6 oz) & stay upright for 30 minutes 70 mg PO QWEEK 12 tabs 1RF Coding Level of Care Code Est Pt Level 4 (86737) Diagnoses Seropositive rheumatoid arthritis M05.9 Osteoporosis M81.0 Osteoporosis type: unspecified Presence of current pathological fracture: without current pathological fracture
== END 2023-05-06 15:11 | disposition home or self-care (01) ==
PROVIDERS: PCP Internal Medicine; Visit Provider Student in an Organized Health Care Education/Training Program
DX: M05.79 Rheumatoid arthritis with rheumatoid factor of multiple sites without organ or systems involvement (principal); M81.0 Age-related osteoporosis without current pathological fracture
CPT/HCPCS: 99214

== ENCOUNTER → 2023-05-06 14:22 | Outpatient (BNVA) | payer OTHER, SELFPAY | PROVIDERS: PCP Internal Medicine; Visit Provider Student in an Organized Health Care Education/Training Program ==

== ENCOUNTER → 2023-06-05 13:38 | Outpatient (REF) | payer OTHER, SELFPAY ==
--- NOTE | 2023-06-05 13:46 | CA_ITS ---
Transthoracic Echocardiogram Patient (Last, First, Middle): Xiao William M Gender: Female Date of : 1970 Age: 53 Procedure Date: 06/05/2023 Procedure Type: Transthoracic Echocardiogram Location: OP Height: 160.02 cm Weight: 62.6 kg BSA: 1.65 m2 Heart Rate: 76 bpm BP: 108 / 62 mmHg [employer] Helicopter Pilot: MADYSON Referring MD: Christi Antoine MD Assistant Federal Public Defender: Girish Aguirre MD Symptoms: R06.02 - Shortness of breath Study Quality: Adequate ECG Rhythm: Sinus Conclusions: - Essentially normal study Findings Left Ventricle Normal left ventricular size, thickness, and systolic function. The visually estimated ejection fraction is between 65-70%. Spectral Doppler is indicative of a normal filling pattern. Right Ventricle Normal right ventricular cavity size and systolic function. Atria Both atria are normal in size. There is no evidence of interatrial shunt. Aortic Valve Normal aortic valve structure and function. There is no aortic valve stenosis. There is no aortic valve regurgitation. Mitral Valve Normal mitral valve structure and function. There is trace mitral valve regurgitation. There is no mitral valve stenosis. Pulmonic Valve The pulmonic valve is likely normal. There is trace pulmonic valve regurgitation. Tricuspid Valve Normal tricuspid valve structure. There is trace tricuspid valve regurgitation. The right ventricular systolic pressure is normal. The right ventricular systolic pressure is 24 mmHg. Normal right atrial pressure. There is no evidence of pulmonary hypertension. Great Vessels All visible segments of the aorta are normal in size. The pulmonary artery was not well visualized. Venous The inferior vena cava is normal in size and collapses greater than 50% with inspiration. Pericardium/Pleural There is no evidence of pericardial effusion. Prior Study Comparison No prior study available for comparison. Measurements 2D Linear Measurements IVSd: 0.73 0.6-0.9/0.6-1.0 cm LVIDd: 4.34 3.9-5.3/4.2-5.9 cm LVIDd Index: 2.63 2.4-3.2/2.2-3.1 cm/m2 LVIDs: 2.39 2.0-3.6 cm LVPWd: 0.80 0.7-1.1 cm LA Diam: 3.80 2.7-3.8/3.0-4.0 cm LAIDs Index: 2.30 1.5-2.3 cm/m2 LV Mass: 124.69 67-162/88-224 g LV Mass Index: 75.57 43-95/49-115 g/m2 LVOT Diam: 2.20 3.0+(-)1.3 cm 2D Systolic Function EF 4C: 66.90 >55% EF 2C: 71.90 >55% EF BiP: 70.00 >55% Mitral Valve MV Pk E: 0.71 MV PK A: 0.60 MV Decel Time: 198.00 E/A: 1.20 E'Lateral: 7.07 E'Medial: 6.31 E/E' Med: 11.30 E/E' Lat: 10.10 PHT: 58.00 MVA PHT: 3.79 Decel Pratt: 3.59 Aortic Valve AoV Pk Torey: 1.08 AoV Pk Grad: 5.00 DELANO: 3.66 LVOT LVOT Pk Torey: 1.06 LVOT Mn Torey: 0.73 LVOT VTI: 0.21 LVOT Pk Grad: 4.00 LVOT Mn Grad: 3.00 LVOT Diam: 2.20 LVOT Area: 3.80 Diastolic Function MV Pk E: 0.71 MV Pk A: 0.60 E/A: 1.20 E'Medial: 6.31 E/E' Med: 11.30 E' Laterial: 7.07 E/E' Lat: 10.10 Right Ventricle TAPSE (mm): 16.50 TVS' Torey: 11.50 Tricuspid Valve TR Pk Torey: 2.29 TR Pk Grad: 21.00 RA Press: 3.00 RVSP: 24.00 Great Vessels Aorta Sinus of Valsalva: 3.30 2.0-3.5 cm Ao Asc: 3.10 2.1-3.4 cm Pulmonary Veins Pulm Vein S/D 0.90 Pulmonary Valve PV Pk Torey: 0.82 Peak PV Grad: 3.00 Updated in Other Vendor System with Status of Final Girish Aguirre MD electronically signed on 06/06/2023 11:43:00 AM with status of Final
--- NOTE | 2023-06-05 16:00 | PFT_ITS ---
Forced vital capacity 74%, FEV1 71%, FEV1/FVC ratio is 76. [id number] 64% and MVV is also 64%. Post bronchodilator therapy, there is no significant change. Total lung capacity 79%. Residual volume 77% and diffusion capacity is 65%. CONCLUSION: Mild restrictive pulmonary disorder. No significant obstructive airway disorder and no response to bronchodilator therapy. Clinical correlation is recommended. MD KAMALA Keith/SERGIO / [id number]
== END ==
LOC: HO.CARD 13:38
PROVIDERS: PCP Internal Medicine; Visit Provider Student in an Organized Health Care Education/Training Program
DX: R06.02 Shortness of breath (principal); R06.2 Wheezing
CPT/HCPCS: 93306; 94010; 94727; 94729

== ENCOUNTER → 2023-06-05 13:46 | Outpatient (BNV) | payer OTHER, SELFPAY | PROVIDERS: PCP Internal Medicine; Visit Provider Internal Medicine Cardiovascular Disease | DX: R06.02 Shortness of breath (principal) | CPT/HCPCS: 93306 ==

== ENCOUNTER → 2023-06-05 16:00 | Outpatient (BNV) | payer OTHER, SELFPAY | PROVIDERS: PCP Internal Medicine; Visit Provider Internal Medicine | DX: J44.9 Chronic obstructive pulmonary disease, unspecified (principal) | CPT/HCPCS: 94060; 94727; 94729 ==

== ENCOUNTER 2023-07-07 06:01 | Outpatient (REF) | payer OTHER, SELFPAY ==
[2023-07-07 11:15] LABS: MANUAL DIFF FLAG NO
[2023-07-07 11:25] LABS: Appearance Urine Clear; Color Urine Yellow; Glucose Urine UA Negative (Negative); Leukocyte Esterase Urine Trace (Negative); Nitrite Urine Negative (Negative); PH 5.5 (5.0-9.0); Specific Gravity - Urine 1.015 (1.005-1.025); UMIC TRIGGER UACC YES; Urine Blood Trace (Negative); Urine Ketones Negative (Negative); Urine Protein Negative (Neg-Trace)
[2023-07-07 11:29] LABS: Bacteria Urine 1+ (None Seen); RBC Urine 0-2 /HPF (0-2); UACC Culture Trigger YES
[2023-07-07 11:33] LABS: Basophils Absolute Auto 0.1 X10*3/uL (0.0-0.2); Basophils Percent Auto 0.6 % (0-2); Eosinophils Absolute Auto 0.1 X10*3/uL (0.0-0.4); Eosinophils Percent Auto 1.4 % (0-4); Hemoglobin 13.1 g/dl (12.0-16.0); Imm Gran Abs Auto 0.02 X10*3/uL (0.00-0.03); Imm Gran Pct Auto 0.2 % (0.0-0.4); Lymphocytes Absolute Auto 2.8 X10*3/uL (1.2-4.9); Lymphocytes Percent Auto 30.9 % (20-40); Mean Corpuscular HGB Conc 32.8 g/dl (31.0-35.0); Mean Corpuscular Hemoglobin 30.5 pg (27.0-33.0); Mean Corpuscular Volume 93.2 fL (80.0-98.0); Mean Platelet Volume 10.6 fL (9.4-12.3); Monocytes Absolute Auto 0.6 X10*3/uL (0.1-1.2); Monocytes Percent Auto 6.1 % (2-11); Neutrophils Absolute Auto 5.5 x10*3/uL (2.0-8.3); Neutrophils Percent Auto 60.8 % (45-73); Platelet Count 302 X10*3/uL (160-400); Red Blood Count 4.29 X10*6/uL (4.20-5.50); White Blood Count 9.1 X10*3/uL (4.8-10.8)
[2023-07-07 11:44] LABS: Estimated Average Glucose 111 mg/dL; Hemoglobin A1c % 5.5 % (<6.0)
[2023-07-07 12:13] LABS: Erythrocyte Sedimentation Rate 12 MM/HR (0-20)
[2023-07-07 12:34] LABS: Alanine Aminotransferase 24 U/L (0-31); Albumin Level 4.5 g/dL (3.5-5.0); Alkaline Phosphatase 68 U/L (39-117); Anion Gap 11 (12-20); Aspartate Amino Transferase 24 U/L (5-31); Bilirubin Total 0.3 mg/dL (0.0-1.0); Blood Urea Nitrogen 8 mg/dL (9-16); C Reactive Protein 0.17 mg/dL (< or = 0.50); Calcium 9.8 mg/dL (8.4-10.2); Carbon Dioxide 24 mmol/L (22-29); Chloride 108 mmol/L (96-108); Cholesterol 199 mg/dL (<200); Estimated Glomerular Filt Rate > 60; Glucose Fasting 105 mg/dL (60-99); Glucose Random 105 mg/dL (60-115); HDL Cholesterol 33 mg/dL (>40); LDL Cholesterol Calculated 119 mg/dL (<100); Potassium 4.3 mmol/L (3.3-5.1); Sodium 139 mmol/L (135-145); TSH reflex Free T4 4.53 uIU/mL (0.32-4.0); Total Protein 7.5 g/dL (6.5-8.0); Triglycerides 237 mg/dL (<150); Vitamin D 25-OH Total 51.6 ng/mL (>30)
[2023-07-07 13:04] LABS: Free T4 (Free Thyroxine) 0.72 ng/dL (0.71-1.85)
[2023-07-08 05:09] LABS: HBS Num1 34.62 mIU/mL (0-7.99); HBc Num1 0.14 S/CO (0.00-0.79); HBsAGNum1 0.43 S/CO (0.00-0.99); Hepatitis A Antibody IgM 0.18 Index (0-0.79); Hepatitis B Core Antibody Nonreactive (Nonreactive); Hepatitis B Surface Antigen Negative (Negative); ~Hepatitis A Antibody IgM Nonreactive (Nonreactive); ~Hepatitis B Surface Antibody REACTIVE (Nonreactive); ~Hepatitis C Antibody Nonreactive (Nonreactive)
[2023-07-09 16:29] LABS: TS Negative Control Passed; TS Panel A 0; TS Panel B 0; TS Positive Control Passed; TSpotTB Negative (Negative)
== END 2023-07-07 06:02 | disposition home or self-care (01) ==
LOC: HO.HMGCLDS 06:01
PROVIDERS: Absent Provider Student in an Organized Health Care Education/Training Program; PCP Internal Medicine; Visit Provider Internal Medicine
DX: E11.9 Type 2 diabetes mellitus without complications (principal); I10 Essential (primary) hypertension; E78.00 Pure hypercholesterolemia, unspecified; E55.9 Vitamin D deficiency, unspecified; M05.9 Rheumatoid arthritis with rheumatoid factor, unspecified; R30.0 Dysuria; Z11.7 Encounter for testing for latent tuberculosis infection; Z11.59 Encounter for screening for other viral diseases; Z72.89 Other problems related to lifestyle
CPT/HCPCS: 36415; 80053; 80061; 81001; 82306; 83036; 84439; 84443; 85025; 85652; 86140; 86481; 86704; 86706; 86709; 86803; 87086; 87340

== ENCOUNTER 2023-07-10 15:39 | Outpatient (AMB) | payer OTHER, SELFPAY ==
[2023-07-10 15:42] VITALS: BP 108/72; PULSE 78; O2SAT 97; BMI 24.6
--- NOTE | 2023-07-10 15:42 | A.OFFVIS_ITS ---
Intake Vital Signs 07/10/23 15:42 Height 5 ft 3 in Weight 138 lb 14.259 oz BMI 24.6 BP 108/72 Blood Pressure Location Rt brachial Position Sitting Pulse 78 Pulse Source Pulse Oximeter Pulse Oximetry (%) 97 Oxygen Delivery Method Room Air Intake Visit Reasons: RA Intake Note: Pt seen today for RA follow up. Reports alendronate caused headaches/migraines so she stopped taking it. Assistant Account Manager Required: No Accompanied by: Self / Same As Patient Allergies acetaminophen [From VICODIN] Allergy (Intermediate, Verified 05/06/23 14:36) ITCHING hydrocodone [From VICODIN] Allergy (Intermediate, Verified 05/06/23 14:36) ITCHING alendronate sodium Adverse Reaction (Intermediate, Verified 07/10/23 16:02) Headache tylenol Allergy (Intermediate, Uncoded 05/06/23 14:36) Itching vicodin Allergy (Intermediate, Uncoded 05/06/23 14:36) Itching Medication List - Last Reconciled 07/10/23 by Christi Antoine MD atorvastatin 40 mg PO DAILY 90 days bisacodyl (Dulcolax (bisacodyl)) 10 mg (2 x 5 mg) PO ONCE 1 day cholecalciferol (vitamin D3) 125 mcg PO QWEEK 90 days etanercept (Enbrel SureClick) 50 mg subcut QWEEK gabapentin 300 mg PO BEDTIME 90 days latanoprost 0.005% 1 drp ophthalmic (eye) BEDTIME lorazepam 1 mg PO BEDTIME PRN 90 days nadolol 40 mg (2 x 20 mg) PO DAILY 90 days paroxetine HCl 40 mg PO DAILY 90 days polyethylene glycol 3350 (Miralax) 238 grams PO ONCE sumatriptan succinate 50 mg PO Q2-4H PRN 90 days umeclidinium-vilanterol 62.5-25 mcg/actuation (Anoro Ellipta) 1 inh inhalation Q24H 90 days HPI HPI Comments History of Present Illness Details T this is a 53-year-old female with seropositive RA who returns for follow-up. States that prednisone taper was not helpful. Continues to feel about the same overall. Continues to have pain especially in her PIP is with morning stiffness lasting at least 2 hours. She takes Aleve 440 mg about twice a week with some relief. He is having some knee pain as well. States that she try taking alendronate twice, she could not tolerate it due to headaches. [facility] Medical History (Updated 07/10/23 @ 16:45 by Christi Antoine MD) Encounter for testing for latent tuberculosis infection Screening for viral disease Shortness of breath Anxiety Osteopenia Impaired fasting glucose Migraine COPD (chronic obstructive pulmonary disease) Pure hypercholesterolemia Vitamin D deficiency Seropositive rheumatoid arthritis Surgical History S/P anal fissurectomy Status post left foot surgery Previous section Family History Father Hyperlipidemia Paternal Grandfather Cardiovascular disease Social History Housing: Apartment Alcohol intake: current Alcohol intake frequency: holidays/special occasions only Alcohol type: wine Patient Tobacco Use Status: Former Tobacco user Tobacco use type: Cigarette Cigarettes Per Day: 20 Years Smoked: 20 e-Cigarette/Vaping Use: Never Used Second Hand Smoke Exposure: No service: No Current occupational status: employed Cognitive needs: No Hearing needs: No Vision needs: No Review of Systems Card Reports dyspnea on exertion Resp Reports dyspnea on exertion Musc Reports arthralgias and Reports stiffness Physical Exam Vital Signs: Last Vital Signs Pulse 78 07/10/23 15:42 BP 108/72 07/10/23 15:42 Pulse Ox 97 07/10/23 15:42 Oxygen Delivery Method Room Air 07/10/23 15:42 BMI result Body Mass Index 24.6 Const General: cooperative, healthy appearing and comfortable Nutritional Appearance: average body habitus Orientation/consciousness: patient oriented x3 Limitations: no limitations HEENT Head: Yes normocephalic and Yes atraumatic Mouth: moist mucous membranes Resp Effort & Inspection: normal respiratory effort and able to speak in complete sentences Auscultation: clear to auscultation bilaterally Cardio Rate: regular rate Rhythm: regular rhythm Heart sounds: S1 normal heart sound present GI Inspection: No distended Palpation (GI): Soft to palpation and nontender Neuro General: patient oriented x3 Extrem Other: Left wrist pain with full flexion. Left wrist tenderness to palpation without swelling Left 1st, 2nd and 3rd MCP tenderness. Positive MCP squeeze test Left diffuse PIP tenderness, minimal diffuse DIP tenderness Right wrist tenderness and pain with full flexion Few MCP tenderness, positive MCP squeeze test Diffuse PIP tenderness Bilateral ankle tenderness posteriorly Left 2nd 4th and 5th MTP tenderness and positive MTP squeeze test Few MTP joint tenderness right foot and positive MTP squeeze test Assessment & Plan Assessment & Plan (1) Seropositive rheumatoid arthritis: Comment: +RF-ve WHOLESALER dx around 2019 Arava 12/2019- 11/2020 unclear why stopped. Oral and subcutaneous methotrexate- GI upset and headaches Humira -07/2021 ineffective Enbrel - 07/2021- present ineffective Code(s): M05.9 - Rheumatoid arthritis with rheumatoid factor, unspecified Plan: Seropositive rheumatoid arthritis (+ RF, CCP-). X-rays of hands with periarticular osteopenia. Patient continues to have joint pain and morning stiffness of her hands. Multiple tender joints on exam. Will need to switch DMARD Discussed risks and benefits of Orencia. Patient agreed to proceed. Will start prior authorization for Orencia. Check x-rays to evaluate for erosive disease Labs before next visit in 3 months (2) Osteoporosis: Comment: DEXA 09/2022 T-score -2.5 left femoral neck Alendronate 04/2023 caused headaches Code(s): M81.0 - Age-related osteoporosis without current pathological fracture Qualifiers: Osteoporosis type: unspecified Presence of current pathological fracture: without current pathological fracture Qualified Code(s): M81.0 - Age-related osteoporosis without current pathological fracture Plan: Alendronate started 04/2023. Patient tried taking alendronate twice. She had severe headaches. Almost a migraine. Alendronate will be discontinued. Discussed risks and benefits of Reclast infusions. Patient agreed to proceed. Will start prior authorization for Reclast (3) Dyspnea: Code(s): R06.00 - Dyspnea, unspecified Qualifiers: Dyspnea type: dyspnea on exertion Qualified Code(s): R06.09 - Other forms of dyspnea Plan: Given history of RA, seropositive ET and history of smoking, mildly reduced DLCO at 65%. Will order HRCT chest to evaluate for RA ILD Plan I spent 31 minutes reviewing patient's chart, evaluating patient, ordering diagnostic workup, counseling patient and documenting in the chart Orders: Orders Comprehensive Met. Panel 3 Months M05.9 - Rheumatoid arthritis with rheumatoid factor, unspecified Erythrocyte Sedimentation Rate 3 Months M05.9 - Rheumatoid arthritis with rheumatoid factor, unspecified XR hand wrist RT Today M05.9 - Rheumatoid arthritis with rheumatoid factor, unspecified XR foot LT min 3V Today M05.9 - Rheumatoid arthritis with rheumatoid factor, unspecified XR foot RT min 3V Today M05.9 - Rheumatoid arthritis with rheumatoid factor, unspecified XR knee LT 3V Today M05.9 - Rheumatoid arthritis with rheumatoid factor, unspecified Complete Blood Count Auto Diff 3 Months M05.9 - Rheumatoid arthritis with rheumatoid factor, unspecified C Reactive Protein 3 Months M05.9 - Rheumatoid arthritis with rheumatoid factor, unspecified XR hand wrist LT Today M05.9 - Rheumatoid arthritis with rheumatoid factor, unspecified XR knee RT 3V Today M05.9 - Rheumatoid arthritis with rheumatoid factor, unspecified XR knee standing BI Today M05.9 - Rheumatoid arthritis with rheumatoid factor, unspecified CT chest wo con - High Res Today M05.9 - Rheumatoid arthritis with rheumatoid factor, unspecified, R06.00 - Dyspnea, unspecified Coding Level of Care Code Est Pt Level 4 (45783) Diagnoses Seropositive rheumatoid arthritis M05.9 Osteoporosis without current pathological fracture, unspecified osteoporosis type M81.0 Osteoporosis type: unspecified Presence of current pathological fracture: without current pathological fracture Dyspnea on exertion R06.09 Dyspnea type: dyspnea on exertion
== END 2023-07-10 16:32 | disposition home or self-care (01) ==
PROVIDERS: PCP Internal Medicine; Visit Provider Student in an Organized Health Care Education/Training Program
DX: M05.79 Rheumatoid arthritis with rheumatoid factor of multiple sites without organ or systems involvement (principal); M81.0 Age-related osteoporosis without current pathological fracture; R06.09 Other forms of dyspnea
CPT/HCPCS: 99214

== ENCOUNTER → 2023-07-10 15:39 | Outpatient (BNVA) | payer OTHER, SELFPAY | PROVIDERS: PCP Internal Medicine; Visit Provider Student in an Organized Health Care Education/Training Program ==

== ENCOUNTER 2023-07-23 15:45 | Outpatient (REF) | payer OTHER, SELFPAY ==
[2023-07-23 15:56] LABS: MANUAL DIFF FLAG NO
[2023-07-23 16:17] LABS: Basophils Absolute Auto 0.1 X10*3/uL (0.0-0.2); Basophils Percent Auto 0.8 % (0-2); Eosinophils Absolute Auto 0.2 X10*3/uL (0.0-0.4); Eosinophils Percent Auto 1.7 % (0-4); Hemoglobin 12.4 g/dl (12.0-16.0); Imm Gran Abs Auto 0.02 X10*3/uL (0.00-0.03); Imm Gran Pct Auto 0.2 % (0.0-0.4); Lymphocytes Absolute Auto 3.9 X10*3/uL (1.2-4.9); Lymphocytes Percent Auto 43.6 % (20-40); Mean Corpuscular HGB Conc 33.5 g/dl (31.0-35.0); Mean Corpuscular Hemoglobin 30.6 pg (27.0-33.0); Mean Corpuscular Volume 91.4 fL (80.0-98.0); Mean Platelet Volume 11.7 fL (9.4-12.3); Monocytes Absolute Auto 0.7 X10*3/uL (0.1-1.2); Monocytes Percent Auto 8.1 % (2-11); Neutrophils Absolute Auto 4.1 x10*3/uL (2.0-8.3); Neutrophils Percent Auto 45.6 % (45-73); Platelet Count 222 X10*3/uL (160-400); Red Blood Count 4.05 X10*6/uL (4.20-5.50); Red Cell Distribution Width 12.9 % (11.0-16.0); White Blood Count 8.9 X10*3/uL (4.8-10.8)
[2023-07-23 16:51] LABS: Anion Gap 13 (12-20); Blood Urea Nitrogen 5 mg/dL (9-16); Calcium 9.5 mg/dL (8.4-10.2); Carbon Dioxide 23 mmol/L (22-29); Chloride 107 mmol/L (96-108); Estimated Glomerular Filt Rate > 60; Glucose Random 75 mg/dL (60-115); Potassium 4.4 mmol/L (3.3-5.1); Sodium 139 mmol/L (135-145)
== END 2023-07-23 15:46 | disposition home or self-care (01) ==
LOC: HO.LAB 15:45
PROVIDERS: PCP Internal Medicine; Visit Provider Student in an Organized Health Care Education/Training Program
DX: M05.9 Rheumatoid arthritis with rheumatoid factor, unspecified (principal); M81.0 Age-related osteoporosis without current pathological fracture
CPT/HCPCS: 36415; 80048; 85025

== ENCOUNTER 2023-07-25 13:43 | Outpatient (REF) | payer OTHER, SELFPAY | END 2023-07-25 13:44 | disposition home or self-care (01) | LOC: HO.MDS 13:43 | PROVIDERS: Visit Provider Student in an Organized Health Care Education/Training Program | DX: M81.0 Age-related osteoporosis without current pathological fracture (principal) | CPT/HCPCS: 96365; J3489 ==

== ENCOUNTER 2023-07-28 08:27 | Emergency (ER) | payer OTHER, SELFPAY ==
[2023-07-28 08:30] VITALS: BP 149/100; PULSE 70; RESP 20; TEMP 36.1; O2SAT 97; BMI 24.4
--- NOTE | 2023-07-28 10:40 | ED.ABDPAIN ---
HPI - Abdominal Pain General Chief Complaint: Abdominal Pain Stated Complaint: r side abd pain sharp Time Seen by Provider: 07/28/23 10:39 Source: patient, family and RN notes reviewed Mode of arrival: ambulatory Limitations: no limitations History of Present Illness HPI narrative: 53 year old female with pmhx significant for migraine, anxiety, COPD, seropositive RA, and osteoporosis who presents to the ED today with acute onset RUQ abdominal pain that began a few hours [employer]. Patient reports constant unbearable pain that is sharp in character without radiation. Denies having pain like this in the past. Reports eating a chicken quesadilla for dinner last night. Admits to first Reclast infusion 4 days ago for osteoporosis. Has never received this treatment before however tolerated it well. Denies headache, fever, chills, chest pain, shortness of breath, nausea/vomiting, diarrhea, constipation, flank or back pain, dysuria or hematuria. Denies history of renal stones. Related Data Home Medications Medication Instructions Recorded Confirmed latanoprost 0.005 % eye drops 1 drp ophthalmic (eye) BEDTIME 11/27/22 02/03/23 Previous Rx's Medication Instructions Recorded gabapentin 300 mg capsule 300 mg PO BEDTIME 90 days #90 caps 02/13/21 atorvastatin 40 mg tablet 40 mg PO DAILY 90 days #90 tabs 07/24/22 cholecalciferol (vitamin D3) 125 125 mcg PO QWEEK 90 days #13 caps 07/24/22 mcg (5,000 unit) capsule paroxetine HCl 40 mg tablet 40 mg PO DAILY 90 days #90 tabs 07/24/22 umeclidinium 62.5 mcg-vilanterol 1 inh inhalation Q24H 90 days #3 07/24/22 25 mcg/actuation powdr for inhalers inhalation (Anoro Ellipta) sumatriptan succinate 50 mg tablet 50 mg PO Q2-4H PRN migraine 11/05/22 headache 90 days #60 tabs bisacodyl 5 mg tablet,delayed 10 mg (2 x 5 mg) PO ONCE 1 day #2 12/02/22 release (Dulcolax (bisacodyl)) tabs polyethylene glycol 3350 17 238 g PO ONCE #238 grams 12/02/22 gram/dose oral powder (Miralax) lorazepam 1 mg tablet 1 mg PO BEDTIME PRN anxiety 90 12/18/22 days #90 tabs nadolol 20 mg tablet 40 mg (2 x 20 mg) PO DAILY 90 days 04/04/23 #180 tabs etanercept 50 mg/mL (1 mL) 50 mg subcut QWEEK #4 mL 06/10/23 subcutaneous pen injector (Enbrel SureClick) Orencia ClickJect 125 mg/mL 125 mg subcut QWEEK #4 mL 07/11/23 subcutaneous auto-injector (abatacept) ketorolac 10 mg tablet 10 mg PO Q8H 5 days #15 tabs 07/28/23 omeprazole 20 mg capsule,delayed 20 mg PO DAILY 4 weeks #28 caps 07/28/23 release ondansetron 4 mg disintegrating 4 mg PO DAILY PRN nausea and 07/28/23 tablet vomiting 5 days #10 tabs Allergies Allergy/AdvReac Type Severity Reaction Status Date / Time acetaminophen [From VICODIN] Allergy Intermediate ITCHING Verified 05/06/23 14:36 hydrocodone [From VICODIN] Allergy Intermediate ITCHING Verified 05/06/23 14:36 alendronate sodium AdvReac Intermediate Headache Verified 07/10/23 16:02 tylenol Allergy Intermediate Itching Uncoded 05/06/23 14:36 vicodin Allergy Intermediate Itching Uncoded 05/06/23 14:36 Review of Systems Review of Systems Constitutional: No fever, chills, fatigue, night sweats, weight changes ENT/Mouth: No ear pain, hearing loss, nasal congestion, sinus pain, rhinorrhea, sore throat Eyes: No eye pain, swelling, redness, vision changes, discharge Cardio: No chest pain, palpitations, PINEDO, orthopnea, peripheral edema Pulm: No SOB, cough, sputum, wheezing, dyspnea, hemoptysis GI: No nausea, vomiting, hematemesis, + abdominal pain, No diarrhea, constipation, hematochezia, melena : No irregular bleeding, dysuria, frequency, urgency, hesitancy, hematuria, flank pain, urinary flow changes, urinary incontinence or retention MSK: No back pain, neck pain, joint pain, myalgias Skin: No lesions, rashes Neuro: No weakness, numbness, paresthesias, LOC, dizziness, headache All other systems reviewed and are negative. [facility] Past Medical History Attestation statement: The following information was validated with the patient. Source: old records reviewed and nursing notes reviewed Medical History Shortness of breath Anxiety Osteopenia Impaired fasting glucose Migraine COPD (chronic obstructive pulmonary disease) Pure hypercholesterolemia Vitamin D deficiency Seropositive rheumatoid arthritis Surgical History S/P anal fissurectomy Status post left foot surgery Previous section Family History Family History Father Hyperlipidemia Paternal Grandfather Cardiovascular disease Social History Social History Housing: Apartment Alcohol intake: current Alcohol intake frequency: holidays/special occasions only Alcohol type: wine Patient Tobacco Use Status: Former Tobacco user Tobacco use type: Cigarette Cigarettes Per Day: 20 Years Smoked: 20 e-Cigarette/Vaping Use: Never Used Second Hand Smoke Exposure: No Advance Directives: No Advance Directives Information Provided: Yes service: No Current occupational status: employed Cognitive needs: No Hearing needs: No Vision needs: No Physical Exam ED Vital Signs: Vital Signs - 24 hr 07/28/23 08:30 07/28/23 11:09 07/28/23 13:26 Temperature 97 F 97.9 F Pulse Rate 70 66 61 Respiratory Rate 20 20 16 Blood Pressure 149/100 H 123/73 116/83 Pulse Oximetry 97 100 99 Oxygen Delivery Method Room Air Room Air Room Air BMI result Body Mass Index 24.4 Vital signs stable Const Other: Patient is tearful, sitting on the bed, holding right side of her abdomen. General: cooperative, no acute distress, alert and awake; No comfortable Orientation/consciousness: patient oriented x3 Limitations: no limitations [facility] Head: Yes normal to inspection Ears: hearing grossly normal bilaterally General nose exam: Normal external nose present Mouth: moist mucous membranes Eyes General: appearance normal, both eyes and all related structures Conjunctivae: conjunctivae normal Sclerae: sclerae normal Pupils: Equal, round and reactive pupils present EOM: EOMs intact bilaterally Neck Neck: Yes normal visual inspection, Yes no lymphadenopathy and Yes no meningeal signs Chest Chest palpation & inspection: normal inspection of the chest and normal palpation of entire chest wall Resp Effort & Inspection: normal respiratory effort Auscultation: clear to auscultation bilaterally Cardio Rate: regular rate Rhythm: regular rhythm Heart sounds: S1 normal heart sound present and S2 normal heart sound present Peripheral pulses: Peripheral pulses 2+ throughout GI Other: Normoactive bowel sounds throughout. Abdomen soft, nondistended, + tender to palpation in the right upper quadrant, + positive Davis sign, no rebound tenderness or guarding, no hepatomegaly, no splenomegaly Inspection: Yes normal to inspection General: Yes no CVA tenderness Back/Spine/Pelvis Back: no CVA tenderness Skin General skin exam: no rashes or lesions noted Neuro General: patient oriented x3, gait normal, moves all extremities and no meningeal signs Cranial nerves: Yes CN's II-XII intact bilaterally and Yes Equal, round and reactive pupils present Extrem General: Yes normal to inspection and Yes full ROM Procedures Procedure Narrative Procedure Narrative: Bedside ultrasound of RUQ performed with Dr. Boggs. We did not visualize thickening of the gallbladder wall or shadowing indicating gallstones. There is mild dilation of the ducts. The right kidney looks normal in size. Course Course Course Narrative: 1053-- CBC without leukocytosis. Liver enzymes WNL. Lipase WNL. Chemistry without acute electrolyte abnormalities requiring intervention. > patient receiving Toradol for pain. 1100-- Bedside ultrasound of the RUQ performed with my attending, Dr. Boggs. We did not visualize any thickening of the gallbladder wall or shadowing indicating gallstones. Will await right upper quadrant ultrasound. 1125-- patient now reports feeling nauseous > Zofran ordered. 1331-- on re-evaluation patient states her pain has improved tremendously. She is now sitting up in bed in good spirits. No longer tearful. We are currently awaiting urinalysis results. 1500-- UA without infection or blood > no UTI. Patient tolerating PO in ED. As workup is unremarkable and patient reports symptom improvement with medications, will send patient home with PPI trial and toradol + PCP follow up this week. Discussed return precautions. All questions answered at this time. Patient agreeable with disposition and stable for discharge. Medical Decision Making Medical Decision Making MDM Narrative: 53 year old female with pmhx significant for migraine, anxiety, COPD, seropositive RA, osteoporosis who presents to the ED today with a acute onset right upper quadrant pain that began a few hours prior to arrival. VSS. Patient tearful however in NAD. Normoactive bowel sounds throughout. Abdomen soft, nondistended, tender to palpation in the right upper quadrant, positive Davis sign, no rebound tenderness or guarding, no hepatomegaly, no splenomegaly. No CVAT bilaterally. Clinical concern for cholecystitis vs hepatitis vs pancreatitis vs Reclast infusion side-effect vs nephrolithiasis vs hydronephrosis vs UTI. Lower suspicion for cholangitis vs appendicitis vs pyelonephritis vs acute abdomen. Plan at this time is basic labs, UA, RUQ US, and pain control. Differential Diagnosis Differential Diagnoses: The differential diagnosis associated with the presentation includes As above. Admission/Observation Not indicated. Lab Data MDM Lab Attestation statement: I reviewed the patient's lab results. As above. 07/28/23 08:37 07/28/23 08:37 Labs: Lab Results 07/28/23 07/28/23 07/28/23 Range/Units 08:37 10:55 12:03 WBC 7.1 (4.8-10.8) X10*3/uL RBC 4.15 L (4.20-5.50) X10*6/uL Hgb 12.9 (12.0-16.0) g/dl Hct 38.5 (37.0-47.0) % MCV 92.8 (80.0-98.0) fL MCH 31.1 (27.0-33.0) pg MCHC 33.5 (31.0-35.0) g/dl RDW 12.8 (11.0-16.0) % Plt Count 316 D (160-400) X10*3/uL MPV 10.0 (9.4-12.3) fL Immature Gran % (Auto) 0.3 (0.0-0.4) % Neut % (Auto) 56.0 (45-73) % Lymph % (Auto) 34.1 (20-40) % Mcleod % (Auto) 7.0 (2-11) % Eos % (Auto) 1.8 (0-4) % Baso % (Auto) 0.8 (0-2) % Lymph # (Auto) 2.4 (1.2-4.9) X10*3/uL Mcleod # (Auto) 0.5 (0.1-1.2) X10*3/uL Eos # (Auto) 0.1 (0.0-0.4) X10*3/uL Baso # (Auto) 0.1 (0.0-0.2) X10*3/uL Abs Immat Gran (auto) 0.02 (0.00-0.03) X10*3/uL Absolute Neuts (auto) 4.0 (2.0-8.3) x10*3/uL Absolute Nucleated RBC 0.000 (0.0-0.012) X10*3/uL Nucleated RBC % (auto) 0.0 (0.0-0.2) /100WBC PT 10.7 L (11.1-13.3) SEC INR 0.9 (0.9-1.1) Sodium 141 (135-145) mmol/L Potassium 4.8 (3.3-5.1) mmol/L Chloride 108 (96-108) mmol/L Carbon Dioxide 24 (22-29) mmol/L Anion Gap 14 (12-20) BUN 11 (9-16) mg/dL Creatinine 0.86 (0.5-1.4) mg/dL Estim Creat Clear Calc 61.8 Estimated GFR > 60 Random Glucose 111 (60-115) mg/dL Calcium 9.8 (8.4-10.2) mg/dL Magnesium 2.4 (1.6-2.6) mg/dL Total Bilirubin 0.2 (0.0-1.0) mg/dL Direct Bilirubin < 0.2 (0.0-0.5) mg/dL AST 24 (5-31) U/L ALT 26 (0-31) U/L Alkaline Phosphatase 72 (39-117) U/L Total Protein 7.6 (6.5-8.0) g/dL Albumin 4.5 (3.5-5.0) g/dL Lipase 32 (8-78) U/L Urine Color Urine Appearance Urine pH (5.0-9.0) Ur Specific [place] (1.005-1.025) Urine Protein (Neg-Trace) mg/dL Urine Glucose (UA) (Negative) mg/dL Urine Ketones (Negative) mg/dL Urine Blood (Negative) Urine Nitrite (Negative) Ur Leukocyte Esterase (Negative) 07/28/23 Range/Units 13:28 WBC (4.8-10.8) X10*3/uL RBC (4.20-5.50) X10*6/uL Hgb (12.0-16.0) g/dl Hct (37.0-47.0) % MCV (80.0-98.0) fL MCH (27.0-33.0) pg MCHC (31.0-35.0) g/dl RDW (11.0-16.0) % Plt Count (160-400) X10*3/uL MPV (9.4-12.3) fL Immature Gran % (Auto) (0.0-0.4) % Neut % (Auto) (45-73) % Lymph % (Auto) (20-40) % Mcleod % (Auto) (2-11) % Eos % (Auto) (0-4) % Baso % (Auto) (0-2) % Lymph # (Auto) (1.2-4.9) X10*3/uL Mcleod # (Auto) (0.1-1.2) X10*3/uL Eos # (Auto) (0.0-0.4) X10*3/uL Baso # (Auto) (0.0-0.2) X10*3/uL Abs Immat Gran (auto) (0.00-0.03) X10*3/uL Absolute Neuts (auto) (2.0-8.3) x10*3/uL Absolute Nucleated RBC (0.0-0.012) X10*3/uL Nucleated RBC % (auto) (0.0-0.2) /100WBC PT (11.1-13.3) SEC INR (0.9-1.1) Sodium (135-145) mmol/L Potassium (3.3-5.1) mmol/L Chloride (96-108) mmol/L Carbon Dioxide (22-29) mmol/L Anion Gap (12-20) BUN (9-16) mg/dL Creatinine (0.5-1.4) mg/dL Estim Creat Clear Calc Estimated GFR Random Glucose (60-115) mg/dL Calcium (8.4-10.2) mg/dL Magnesium (1.6-2.6) mg/dL Total Bilirubin (0.0-1.0) mg/dL Direct Bilirubin (0.0-0.5) mg/dL AST (5-31) U/L ALT (0-31) U/L Alkaline Phosphatase (39-117) U/L Total Protein (6.5-8.0) g/dL Albumin (3.5-5.0) g/dL Lipase (8-78) U/L Urine Color Yellow Urine Appearance Clear Urine pH 8.0 (5.0-9.0) Ur Specific [place] <= 1.005 (1.005-1.025) Urine Protein Negative (Neg-Trace) mg/dL Urine Glucose (UA) Negative (Negative) mg/dL Urine Ketones Negative (Negative) mg/dL Urine Blood Negative (Negative) Urine Nitrite Negative (Negative) Ur Leukocyte Esterase Negative (Negative) Independent Interpretation I performed an independent interpretation of an: Ultrasound Interpretation: US RUQ without gallbladder wall thickening or stones, agree with radiologist's interpretation. Radiology Impression Discussion of test interpretation with radiology: I have reviewed the radiologist's reading. Radiologist Impression: US abdomen limited IMPRESSION: No acute sonographic abnormalities in the examined abdomen. No evidence of cholelithiasis, cholecystitis or biliary tract obstruction. Diffuse hepatic steatosis is suspected. Otherwise, liver is unremarkable. Independent Historian Clinical information obtained from an independent historian. History obtained from or confirmed by: Spouse External Record Review External record reviewed: Inpatient record, Office record, Outpatient record, Prior outpatient labs, Prior outpatient radiology, Primary care record and Outside ED record Tests considered The following testing was considered but not selected: Considered ordering CT abdomen/pelvis however ultrasound right upper quadrant unremarkable and patient's symptoms improved with treatment. Prescription Management I considered prescription management with: Pain Medication and Other (antiemetic) Medications Administered Discontinued Medications Generic Name Dose Route Start Last Admin Trade Name Freq PRN Reason Stop Dose Admin Sodium Chloride 1,000 mls @ 999 mls/hr 07/28/23 11:00 07/28/23 12:02 Ns IV 07/28/23 12:00 Infused .Q1H1M ELIER Infusion Ketorolac Tromethamine 30 mg 07/28/23 10:52 07/28/23 10:59 Ketorolac Tromethamine 30 Mg/Ml Vial IVPUSH 07/28/23 10:53 30 mg ONCE ONE Administration Ondansetron HCl 4 mg 07/28/23 11:21 07/28/23 11:29 Ondansetron Hcl 4 Mg/2 Ml Vial IVPUSH 07/28/23 11:22 4 mg ONCE ONE Administration Critical Care Time Critical Care Time Critical Care Time: No Discharge Plan Discharge Clinical Impression: Hepatic steatosis Patient Disposition: Home, Self-Care Instructions: Liver Disease Diet (DC), Non-Alcoholic Fatty Liver Disease (ED), Abdominal Pain (ED), Flank Pain (ED) Additional Instructions: Your lab workup today was unremarkable. The ultrasound of your right upper abdomen did not show gallbladder, liver, or kidney pathology. Omeprazole is a proton pump inhibitor that has been sent to your pharmacy. Take this once daily with a meal. Zofran is an antinausea medication that has been sent to your pharmacy. Take this as needed for nausea. Toradol and is in the anti-inflammatory. He tolerated dose of this in the emergency department today. This has also been sent to your pharmacy. Take this as needed for pain/discomfort. Do not take this at the other NSAIDs. Please follow-up with your primary care provider this week regarding your ED visit. Return to the emergency department if your symptoms persist or worsen. In the case of an emergency call 911. Prescriptions: New omeprazole 20 mg capsule,delayed release(DR/EC) 20 mg PO DAILY 28 Days Qty: 28 0RF ondansetron 4 mg tablet,disintegrating 4 mg PO DAILY PRN (Reason: nausea and vomiting) 5 Days Qty: 10 0RF ketorolac 10 mg tablet 10 mg PO Q8H 5 Days Qty: 15 0RF No Action lorazepam 1 mg tablet 1 mg PO BEDTIME PRN (Reason: anxiety) 90 Days Qty: 90 0RF nadolol 20 mg tablet 40 mg PO DAILY 90 Days Qty: 180 3RF Enbrel SureClick 50 mg/mL (1 mL) pen injector 50 mg subcut QWEEK Qty: 4 2RF Orencia ClickJect 125 mg/mL auto-injector 125 mg subcut QWEEK Qty: 4 2RF gabapentin 300 mg capsule 300 mg PO BEDTIME 90 Days Qty: 90 1RF sumatriptan succinate 50 mg tablet 50 mg PO Q2-4H PRN (Reason: migraine headache) 90 Days Qty: 60 1RF Rx Instructions: do not exceed 4 doses per 24 hrs atorvastatin 40 mg tablet 40 mg PO DAILY 90 Days Qty: 90 3RF cholecalciferol (vitamin D3) 125 mcg (5,000 unit) capsule 125 mcg PO QWEEK 90 Days Qty: 13 3RF paroxetine HCl 40 mg tablet 40 mg PO DAILY 90 Days Qty: 90 3RF Anoro Ellipta 62.5-25 mcg/actuation blister with device 1 inh inhalation Q24H 90 Days Qty: 3 3RF latanoprost 0.005 % drops 1 drp ophthalmic (eye) BEDTIME bisacodyl [Dulcolax (bisacodyl)] 5 mg tablet,delayed release (DR/EC) 10 mg PO ONCE 1 Days Qty: 2 0RF Rx Instructions: take 2 tabs at noon the day before your colonoscopy polyethylene glycol 3350 [Miralax] 17 gram/dose powder 238 g PO ONCE Qty: 238 0RF Rx Instructions: As directed by gastroenterology department at [facility] Referrals: [facility] [Provider Group] - 5 days Kalen Jose MD [Primary Care Provider] - Interventions: ED Discharge Assessment Last Done: 07/28/23 14:34 Discharge Date/Time: 07/28/23 14:34
[2023-07-28 11:09] VITALS: BP 123/73; PULSE 66; RESP 20; TEMP 36.6; O2SAT 100
[2023-07-28 13:26] VITALS: BP 116/83; PULSE 61; RESP 16; O2SAT 99
--- NOTE | 2023-07-28 14:33 | PC.NURSE ---
iv removed, patient given discharge paperwork and verbally agreed and understood information
== END 2023-07-28 14:34 | disposition home or self-care (01) ==
PROVIDERS: Emergency Provider Emergency Medicine; PCP Internal Medicine
DX: K76.0 Fatty (change of) liver, not elsewhere classified (principal); R10.11 Right upper quadrant pain; M81.0 Age-related osteoporosis without current pathological fracture; Z79.899 Other long term (current) drug therapy; Z87.891 Personal history of nicotine dependence
CPT/HCPCS: 36415; 76705; 80048; 80076; 81003; 83690; 83735; 85025; 85610; 96361; 96374; 96375; 99284; J1885; J2405

== ENCOUNTER 2023-08-06 14:56 | Outpatient (REF) | payer OTHER, SELFPAY ==
--- NOTE | ~2023-08-06 | CT_ITS ---
STUDY: Unenhanced CT of the chest INDICATION: Dyspnea, 0 positive rheumatoid arthritis. TECHNIQUE: Continuous helical imaging obtained through the chest without IV contrast. Reconstructed images performed in the coronal and sagittal planes. High-resolution imaging also performed. MIP Images generated. This CT examination was performed using dose optimization techniques as appropriate, variously including the following: *Automated exposure control *Adjustment of mA and/or kV according to patient size (this includes techniques or standardized protocols for targeted exams where dose is matched to indication/reason for exam; i.e. extremities or head) *Use of iterative reconstruction technique TOTAL EXAM DLP: 121 mGy-cm FINDINGS: Country Singer: Unremarkable. Airways and lungs: Trachea and bronchi are patent. Mild cystic changes bilateral apices. Bilateral lower lobe dependent atelectasis. Lingular atelectasis. No consolidations, groundglass opacities or increased reticular markings. No lung nodules. No abnormality on high-resolution imaging. Mediastinum: Unremarkable thyroid. Nonspecific lymph nodes. No pathologic lymphadenopathy. Heart and great vessels: Nonenlarged heart. No pericardial effusion. Degree of coronary calcifications: None. Nonaneurysmal aorta. Nonenlarged pulmonary arteries. Pleura: No effusions, pneumothoraces, thickening or masses. Chest wall and axilla: No pathologic lymphadenopathy. Upper abdomen: No pathology recognized. Bones and soft tissues: Unremarkable. CT/CT chest wo con - High Res IMPRESSION: No acute intrathoracic pathology. Mild atelectasis.
== END 2023-08-06 14:57 | disposition home or self-care (01) ==
LOC: HO.CT 14:56
PROVIDERS: PCP Internal Medicine; Visit Provider Student in an Organized Health Care Education/Training Program
DX: R06.00 Dyspnea, unspecified (principal); M05.9 Rheumatoid arthritis with rheumatoid factor, unspecified
CPT/HCPCS: 71250

== ENCOUNTER 2023-08-06 15:44 | Outpatient (AMB) | payer OTHER, SELFPAY ==
[2023-08-06 15:48] VITALS: BP 126/82; PULSE 74; O2SAT 96; BMI 24.3
--- NOTE | 2023-08-06 15:48 | MHC.PC.OV ---
Vital Signs 08/06/23 15:48 Height 5 ft 3 in Weight 137 lb 2 oz BMI 24.3 BP 126/82 Blood Pressure Location Lt brachial Position Sitting Pulse 74 Pulse Source Pulse Oximeter Pulse Oximetry (%) 96 Oxygen Delivery Method Room Air Intake Visit Reasons: 6 month f/u Core Driller Required: No Accompanied by: Self / Same As Patient Allergies acetaminophen [From VICODIN] Allergy (Intermediate, Verified 08/06/23 16:36) ITCHING hydrocodone [From VICODIN] Allergy (Intermediate, Verified 08/06/23 16:36) ITCHING alendronate sodium Adverse Reaction (Intermediate, Verified 08/06/23 16:36) Headache tylenol Allergy (Intermediate, Uncoded 08/06/23 16:36) Itching vicodin Allergy (Intermediate, Uncoded 08/06/23 16:36) Itching Medication List - Last Reconciled 08/06/23 by Kalen Jose MD atorvastatin 40 mg PO DAILY 90 days cholecalciferol (vitamin D3) 125 mcg PO QWEEK 90 days latanoprost 0.005% 1 drp ophthalmic (eye) BEDTIME lorazepam 1 mg PO BEDTIME PRN 90 days nadolol 40 mg (2 x 20 mg) PO DAILY 90 days Orencia ClickJect (abatacept) 125 mg subcut QWEEK NS paroxetine HCl 40 mg PO DAILY 90 days sumatriptan succinate 50 mg PO Q2-4H PRN 90 days umeclidinium-vilanterol 62.5-25 mcg/actuation (Anoro Ellipta) 1 inh inhalation Q24H 90 days zoledronic buej-ydfuoiuq-iopsy 5 mg/100 mL (Reclast) ea IV .once a year Tobacco use date assessed: 08/06/23 Dental Screening Dental Screen Date: 08/06/23 Did you have a dental visit in the last 12 months?: Yes Did you have a dental problem in the last 6 months where you did not have access to dental care?: No Was dental information given to patient?: Patient has dentist HPI 6 month f/u HPI Details Patient comes in today for her follow up visit States that she feels okay She went to the ER last week for increasing RUQ abdominal pain - thought that she was having a gall bladder attack at the time Work ups done, including labs and abdominal US, came back normal Patient now recalls that she had her Reclast infusion about 2 to 3 days before her symptoms started then so is now wondering whether her symptoms were due to side effects from her Reclast infusion - she plans to discuss this with rheumatology at her next follow up visit in September 2023 Her symptoms improved with symptomatic Tx while she was in the ER and she was sent home with Rx for Omeprazole and Zofran and instructed to follow up with her PCP States that she currently feels okay and that most of her GI symptoms from last week have subsided She denies any headaches or dizziness Denies any chest pains; reports that she has been experiencing some SOB lately Was sent for echocardiogram and chest CT - echo done in May [address] CT was done earlier today - report is still pending at this time No nausea/vomiting, no abdominal pain at present No change in bowel habits noted Needs several of her Rx refilled Had her follow up labs done last month - to discuss her results [facility] Medical History (Updated 08/06/23 @ 17:48 by Kalen Jose MD) Osteoporosis Anxiety Impaired fasting glucose Migraine COPD (chronic obstructive pulmonary disease) Pure hypercholesterolemia Vitamin D deficiency Seropositive rheumatoid arthritis Surgical History S/P anal fissurectomy Status post left foot surgery Previous section Family History Father Hyperlipidemia Paternal Grandfather Cardiovascular disease Social History Housing: Apartment Alcohol intake: current Alcohol intake frequency: holidays/special occasions only Alcohol type: wine Patient Tobacco Use Status: Former Tobacco user Tobacco use type: Cigarette Cigarettes Per Day: 20 Years Smoked: 20 e-Cigarette/Vaping Use: Never Used Second Hand Smoke Exposure: No service: No Current occupational status: employed Cognitive needs: No Hearing needs: No Vision needs: No Questionnaire PHQ-9 Over the last 2 weeks, how often have you been bothered by any of the following problems? 1. Little interest or pleasure in doing things: not at all 2. Feeling down, depressed, or hopeless: not at all 3. Trouble falling or staying asleep, or sleeping too much: not at all 4. Feeling tired or having little energy: not at all 5. Poor appetite or overeating: not at all 6. Feeling bad about yourself - or that you are a failure or have let yourself or your family down: not at all 7. Trouble concentrating on things, such as reading the newspaper or watching television: not at all 8. Moving or speaking so slowly that other people could have noticed. Or the opposite - being so fidgety or restless that you have been moving around a lot more than usual: not at all 9. Thoughts that you would be better off or of hurting yourself in some way: not at all Total score: 0 Depression Screening Interpretation: Negative Depression Screening Done: Yes 37779 - PHQ-9 Billing: Yes Source: Developed by Drs. Timi Linares, Ninfa Gusman, Malcolm Carey and colleagues, with an educational tim from [employer]. Thrive Questionnaire Date Thrive assessed: 08/06/23 I am a: Patient What is your living situation today?: I have a steady place to live Within the past 12 months, did the food you bought not last and you didn't have the money to get more?: Never true Within the past 12 months, did you worry whether your food would run out before you got money to buy more?: Never true Do you have trouble paying for medicines?: No Do you have trouble getting transportation to medical appointments?: No Do you have trouble paying your heating and electricity bill?: No Do you have trouble taking care of your child, family member or friend?: No Do you have trouble with day-to-day activities such as bathing, preparing meals, shopping, managing finances, etc.?: No Are you currently unemployed and looking for a job?: No Are you interested in more education?: No Please select the resources that you would like help with: None Currently or been in a relationship where the following occur: no concerns reported AUDIT C Alcohol Use Questionnaire (AUDIT-C) 1. How often do you have a drink containing alcohol?: Monthly or less 2. How many drinks containing alcohol do you have on a typical day when you are drinking?: 1 or 2 3. How often do you have six or more drinks on one occasion?: Never Total Score: 1 Score Reviewed/Action Taken: Yes JUANITA-7 AMB Questionnaire JUANITA-7 Date JUANITA - 7 assessed: 08/06/23 Feeling nervous, anxious, or on edge: 0 = Not at all Not being able to stop or control worryin = Not at all Worrying too much about different things: 0 = Not at all Trouble relaxin = Not at all Being so restless that it is hard to sit still: 0 = Not at all Becoming easily annoyed or irritable: 0 = Not at all Feeling afraid as if something awful might happen: 0 = Not at all Total JUANITA-7 score (0-4 normal; 5-9 mild; 10-14 moderate; 15-21 severe): 0 Source: Developed by Drs. Timi Linares, Ninfa Gusman, Malcolm Carey and colleagues, with an educational tim from [employer]. Review of Systems Const Denies chills, Reports fatigue, Denies fever(s) and Denies headache(s) ENT Denies dysphagia, Denies dizziness, Denies otalgia, Denies headache(s), Denies odynophagia and Denies sore throat Card Denies chest pain, Denies rapid heart rate, Denies palpitations and Reports dyspnea Resp Denies cough, Reports dyspnea and Denies wheezing GI Denies abdominal pain, Denies constipation, Denies dysphagia, Denies heartburn, Denies diarrhea, Denies nausea, Denies odynophagia and Denies vomiting Denies difficulty voiding, Denies nocturia, Denies dysuria and Denies urinary urgency Musc Reports arthralgias (in both hands, worse in the morning) and Reports joint swelling (in both hands, on and off) Neuro Denies dizziness and Denies headache(s) Psych Denies anxiety Endo Reports fatigue and Denies palpitations Mike/Lymph Denies easy bruising Aller/Immun Denies wheezing Physical exam (Primary Care) Vital Signs: Last Vital Signs Pulse 74 08/06/23 15:48 BP 126/82 08/06/23 15:48 Pulse Ox 96 08/06/23 15:48 Oxygen Delivery Method Room Air 08/06/23 15:48 BMI result Body Mass Index 24.3 Tobacco/Smoking Status: Tobacco use Status Tobacco use date assessed 08/06/23 08/06/23 15:55 Patient Tobacco Use Status Former Tobacco user 08/06/23 15:55 Tobacco use type Cigarette 08/06/23 15:55 e-Cigarette/Vaping Use Never Used 08/06/23 15:55 PHQ-9: PHQ-9 Score PHQ-9: Total score 0 08/06/23 16:27 Depression Screening Interpretation: Negative Thrive Assessment: Date of Thrive Assessment Date Thrive assessed 08/06/23 08/06/23 15:55 Currently or been in a relationship where the following occur: no concerns reported Const General: no acute distress and alert HENMT Ears: TM's normal bilaterally and EAC's normal Throat: Yes posterior oropharynx normal and Yes tonsils normal Neck Neck: Yes no lymphadenopathy and Yes supple Lymphatic: no lymphadenopathy noted Resp Auscultation: clear to auscultation bilaterally, no crackles, no rales and no wheezes Cardio Rate: regular rate Rhythm: regular rhythm Heart sounds: no murmurs GI Palpation (GI): Soft to palpation and nontender Auscultation: normal bowel sounds General: Yes no CVA tenderness Back/Spine/Pelvis Back: no CVA tenderness Skin Rashes: no rashes Extrem General: Yes no clubbing, cyanosis or edema Results Reviewed Results Reviewed: Laboratory Tests 07/07/23 07/07/23 07/07/23 06:16 06:16 06:16 WBC Hgb Hct Plt Count Sodium Potassium Creatinine Estimated GFR Fasting Glucose 105 H Hemoglobin A1c % 5.5 Calcium Magnesium AST ALT Triglycerides Cholesterol LDL Cholesterol, Calc 119 H HDL Cholesterol 33 L Lipase 25-OH Vitamin D Total 51.6 TSH 4.53 H Free T4 0.72 Ur Specific [place] Urine Protein Urine Glucose (UA) Urine Blood 07/07/23 07/28/23 07/28/23 06:16 08:37 08:37 WBC 7.1 Hgb 12.9 Hct 38.5 Plt Count 316 D Sodium 141 Potassium 4.8 Creatinine 0.86 Estimated GFR > 60 Fasting Glucose Hemoglobin A1c % Calcium 9.8 Magnesium AST ALT Triglycerides 237 H Cholesterol 199 LDL Cholesterol, Calc HDL Cholesterol Lipase 25-OH Vitamin D Total TSH Free T4 Ur Specific [place] Urine Protein Urine Glucose (UA) Urine Blood 07/28/23 07/28/23 07/28/23 08:37 10:55 10:55 WBC Hgb Hct Plt Count Sodium Potassium Creatinine Estimated GFR Fasting Glucose Hemoglobin A1c % Calcium Magnesium 2.4 AST 24 ALT 26 Triglycerides Cholesterol LDL Cholesterol, Calc HDL Cholesterol Lipase 32 25-OH Vitamin D Total TSH Free T4 Ur Specific [place] Urine Protein Urine Glucose (UA) Urine Blood 07/28/23 13:28 WBC Hgb Hct Plt Count Sodium Potassium Creatinine Estimated GFR Fasting Glucose Hemoglobin A1c % Calcium Magnesium AST ALT Triglycerides Cholesterol LDL Cholesterol, Calc HDL Cholesterol Lipase 25-OH Vitamin D Total TSH Free T4 Ur Specific [place] <= 1.005 Urine Protein Negative Urine Glucose (UA) Negative Urine Blood Negative Assessment and Plan Assessment & Plan (1) Pure hypercholesterolemia: Code(s): E78.00 - Pure hypercholesterolemia, unspecified Plan: Results of her labs done last week reviewed and discussed with patient - patient is cautioned that her cholesterol levels have increased slightly from previous Reinforced low cholesterol diet Continue Atorvastatin 40 mg QD for now Will recheck her labs and fasting lipids in 6 months for follow up (2) COPD (chronic obstructive pulmonary disease): Code(s): J44.9 - Chronic obstructive pulmonary disease, unspecified Qualifiers: COPD type: unspecified COPD Qualified Code(s): J44.9 - Chronic obstructive pulmonary disease, unspecified Plan: Continue Anoro Ellipta 62.5-25 mcg 1 inhalation QD and Albuterol HFA 1 to 2 inhalations 4 times a day as needed She was also supposed to be on Flovent HFA 110 mcg BID but somehow, she is no longer on it presently She has been reporting some increased dyspnea lately Echocardiogram done in May 2023 came out normal; she had a chest CT done earlier today - will follow up report once it is read by radiology PFTs done on 06/05/2023 revealed (+) mild obstructive airway disease with some reversibility after bronchodilator therapy; PFTs done back in 2013 showed similar results - very mild obstructive airway disorder but with NO reversibility after bronchodilator therapy back then If chest CT is normal and her dyspnea persists, can consider starting her back on ICS (Flovent HFA) or combination therapy like Breo or Trelegy (3) Osteoporosis: Comment: DEXA 09/2022 T-score -2.5 left femoral neck Alendronate 04/2023 caused headaches Code(s): M81.0 - Age-related osteoporosis without current pathological fracture Qualifiers: Osteoporosis type: unspecified Presence of current pathological fracture: without current pathological fracture Qualified Code(s): M81.0 - Age-related osteoporosis without current pathological fracture Plan: Repeat BMD done in September 2022 revealed (+) significant decline from previous BMD in 2017 - had a 10.3% BMD decline in the AP spine from previous and a 6.2% decline in her left femur from previous; her lowest T score is now at -2.5 in the femoral neck and the lumbar spine Is advised that her rheumatoid arthritis also increases her risks for osteoporosis because she is currently on a TNF inhibitor as well Was previously referred to endocrinology for further evaluation and management of her osteoporosis but patient has decided to just continue following up with rheumatology for her issues She was tried on Alendronate but could not tolerate Rx Received 1 dose of Reclast about 2 weeks ago and is concerned that her abdominal pain and GI symptoms 2 to 3 days later were due to side effects from her Reclast - states that she plans to discuss this further with rheumatology at her upcoming appt in September 2023 Patient is encouraged to continue to stay active and exercise regularly; reinforced fall precautions Continue daily Vitamin D and calcium supplements regularly as well (4) Migraine: Code(s): G43.909 - Migraine, unspecified, not intractable, without status migrainosus Qualifiers: Intractability: not intractable Migraine type: unspecified Status migrainosus presence: without status migrainosus Qualified Code(s): G43.909 - Migraine, unspecified, not intractable, without status migrainosus Plan: Was stable until her recent bout with COVID in July 2022 - reports experiencing recurrent headaches again since then but headaches appear to have subsided again recently Reinforced avoidance of migraine triggers Continue Nadolol 40 mg Q HS for migraine headache prophylaxis; continue Sumatriptan 50 mg PRN for her migraine headaches - Rx refilled (5) Seropositive rheumatoid arthritis: Comment: +RF-ve POT PUNCHER dx around 2018 Arava 12/2019- 11/2020 unclear why stopped. Oral and subcutaneous methotrexate- GI upset and headaches Humira -07/2021 ineffective Enbrel - 07/2021- present - ineffective Code(s): M05.9 - Rheumatoid arthritis with rheumatoid factor, unspecified Plan: She has been on weekly Enbrel 50 mg SQ for almost a year but apparently has not experienced any significant improvement of her joint symptoms Has also failed oral and SQ Methotrexate, Arava and Humira in the past, either due to side effects or ineffective symptom control Will now be started on Orencia once all of the insurance requirements are met and approval is obtained by rheumatology Follow up with rheumatology at [facility] [place] as scheduled (6) Impaired fasting glucose: Code(s): R73.01 - Impaired fasting glucose Plan: HgbA1c remains normal at 5.5% on her labs done last month Reinforced low calorie/low carb diet; exercise as tolerated (7) Vitamin D deficiency: Code(s): E55.9 - Vitamin D deficiency, unspecified Plan: Corrected on her recent labs Continue Vitamin D3 2000 units QD Will recheck her Vitamin D level in 6 months for follow up (8) Anxiety: Code(s): F41.9 - Anxiety disorder, unspecified Plan: Continue Lorazepam 1 mg Q HS PRN and Paroxetine 40 mg QD Follow up with psychiatry as scheduled (9) Colon cancer screening: Code(s): Z12.11 - Encounter for screening for malignant neoplasm of colon Plan: States that she was seen back in November 2022 by GI and was advised that she will be contacted to schedule her repeat colonoscopy soon, as her last one was done over 10 years ago States that she has not heard back from GI after several months and has tried a few times to call them but always reportedly ends up with the message that the provider is not available As it has been a year now since she was referred, will refer her AGAIN to GI for repeat colonoscopy Plan Follow up in 6 months Orders: Orders Lipid Panel 6 Months E78.00 - Pure hypercholesterolemia, unspecified Complete Blood Count Auto Diff 6 Months I10 - Essential (primary) hypertension TSH reflex Free T4 6 Months E78.00 - Pure hypercholesterolemia, unspecified [facility]. Panel Fast 6 Months E78.00 - Pure hypercholesterolemia, unspecified UA CC w/rflx Micro + Cult 6 Months R30.0 - Dysuria Vitamin D 25-OH Total 6 Months E55.9 - Vitamin D deficiency, unspecified Referrals Gastroenterology Referral Z12.11 - Encounter for screening for malignant neoplasm of colon Medications: Refilled cholecalciferol (vitamin D3) 125 mcg PO QWEEK 90 days 13 caps 3RF E55.9 - Vitamin D deficiency, unspecified sumatriptan succinate do not exceed 4 doses per 24 hrs 50 mg PO Q2-4H 90 days PRN 60 tabs 1RF migraine headache G43.909 - Migraine, unspecified, not intractable, without status migrainosus atorvastatin 40 mg PO DAILY 90 days 90 tabs 3RF E78.00 - Pure hypercholesterolemia, unspecified paroxetine HCl 40 mg PO DAILY 90 days 90 tabs 3RF F41.9 - Anxiety disorder, unspecified Coding Level of Care Code Est Pt Level 4 (61406) Diagnoses Pure hypercholesterolemia E78.00 Chronic obstructive pulmonary disease, unspecified COPD type J44.9 COPD type: unspecified COPD Osteoporosis without current pathological fracture, unspecified osteoporosis type M81.0 Osteoporosis type: unspecified Presence of current pathological fracture: without current pathological fracture Migraine without status migrainosus, not intractable, unspecified migraine type G43.909 Intractability: not intractable Migraine type: unspecified Status migrainosus presence: without status migrainosus Seropositive rheumatoid arthritis M05.9 Impaired fasting glucose R73.01 Vitamin D deficiency E55.9 Anxiety F41.9 Colon cancer screening Z12.11
== END 2023-08-06 16:28 | disposition home or self-care (01) ==
PROVIDERS: Visit Provider Internal Medicine
DX: E78.00 Pure hypercholesterolemia, unspecified (principal); J44.9 Chronic obstructive pulmonary disease, unspecified; M05.9 Rheumatoid arthritis with rheumatoid factor, unspecified; M81.0 Age-related osteoporosis without current pathological fracture; G43.909 Migraine, unspecified, not intractable, without status migrainosus; R73.01 Impaired fasting glucose; E55.9 Vitamin D deficiency, unspecified; F41.9 Anxiety disorder, unspecified
CPT/HCPCS: 99214

== ENCOUNTER 2023-09-30 15:42 | Outpatient (REF) | payer OTHER, SELFPAY ==
--- NOTE | ~2023-09-30 | XR_ITS ---
EXAMINATION: XR KNEE, RIGHT XR KNEE, LEFT CLINICAL INFORMATION: Rheumatoid arthritis. COMPARISON: Left knee radiographs dated 06/29/2018. Bilateral knee radiographs dated 11/27/2017. TECHNIQUE: AP, tunnel, lateral, and sunrise views of the right and left knee. FINDINGS: Right knee: No joint space narrowing or marginal osteophytes. No osseous erosion. No fracture or dislocation. No concerning lytic or blastic osseous lesion. No joint effusion. No abnormal soft tissue calcification. Left knee: No joint space narrowing or marginal osteophytes. No osseous erosion. No fracture or dislocation. No concerning lytic or blastic osseous lesion. No joint effusion. No abnormal soft tissue calcification. XR/XR knee LT 4V IMPRESSION: RIGHT KNEE: Unremarkable examination. LEFT KNEE: Unremarkable examination.
--- NOTE | ~2023-09-30 | XR_ITS ---
EXAMINATION: XR FOOT, RIGHT XR FOOT, LEFT CLINICAL INFORMATION: Rheumatoid arthritis. COMPARISON: Right and left foot radiographs dated 08/07/2018. TECHNIQUE: AP, oblique, and lateral views of the right left foot. FINDINGS: Right foot: No acute fracture or dislocation. No joint space narrowing or marginal osteophytes. No osseous erosion. No abnormal soft tissue calcification. Left foot: No acute fracture or dislocation. No joint space narrowing or marginal osteophytes. No osseous erosion. No abnormal soft tissue calcification. XR/XR foot RT min 3V IMPRESSION: RIGHT FOOT: Unremarkable examination. LEFT FOOT: Unremarkable examination.
--- NOTE | ~2023-09-30 | XR_ITS ---
EXAMINATION: XR WRIST, RIGHT XR WRIST, LEFT XR HAND, RIGHT XR HAND, LEFT CLINICAL INFORMATION: Rheumatoid arthritis. COMPARISON: Most recent bilateral hand and wrist radiographs dated 08/07/2018. TECHNIQUE: PA, oblique, lateral, and scaphoid views of the right and left hand and wrist. FINDINGS: RIGHT HAND AND WRIST: No acute fracture or dislocation. Normal carpal alignment. No significant joint space narrowing or marginal osteophytes. No periarticular erosion. Mild periarticular osteopenia is unchanged. No abnormal soft tissue calcification. LEFT HAND AND WRIST: No acute fracture or dislocation. Normal carpal alignment. No significant joint space narrowing or marginal osteophytes. No periarticular erosion. Mild periarticular osteopenia is unchanged. No abnormal soft tissue calcification. XR/XR hand wrist LT IMPRESSION: 1. Mild periarticular osteopenia, unchanged. No periarticular erosion. 2. No significant joint space narrowing or marginal osteophytes. No periarticular erosion.
--- NOTE | ~2023-09-30 | XR_ITS ---
EXAMINATION: XR KNEE, RIGHT XR KNEE, LEFT CLINICAL INFORMATION: Rheumatoid arthritis. COMPARISON: Left knee radiographs dated 06/29/2018. Bilateral knee radiographs dated 11/27/2017. TECHNIQUE: AP, tunnel, lateral, and sunrise views of the right and left knee. FINDINGS: Right knee: No joint space narrowing or marginal osteophytes. No osseous erosion. No fracture or dislocation. No concerning lytic or blastic osseous lesion. No joint effusion. No abnormal soft tissue calcification. Left knee: No joint space narrowing or marginal osteophytes. No osseous erosion. No fracture or dislocation. No concerning lytic or blastic osseous lesion. No joint effusion. No abnormal soft tissue calcification. XR/XR knee RT 4V IMPRESSION: RIGHT KNEE: Unremarkable examination. LEFT KNEE: Unremarkable examination.
--- NOTE | ~2023-09-30 | XR_ITS ---
EXAMINATION: XR WRIST, RIGHT XR WRIST, LEFT XR HAND, RIGHT XR HAND, LEFT CLINICAL INFORMATION: Rheumatoid arthritis. COMPARISON: Most recent bilateral hand and wrist radiographs dated 08/07/2018. TECHNIQUE: PA, oblique, lateral, and scaphoid views of the right and left hand and wrist. FINDINGS: RIGHT HAND AND WRIST: No acute fracture or dislocation. Normal carpal alignment. No significant joint space narrowing or marginal osteophytes. No periarticular erosion. Mild periarticular osteopenia is unchanged. No abnormal soft tissue calcification. LEFT HAND AND WRIST: No acute fracture or dislocation. Normal carpal alignment. No significant joint space narrowing or marginal osteophytes. No periarticular erosion. Mild periarticular osteopenia is unchanged. No abnormal soft tissue calcification. XR/XR hand wrist RT IMPRESSION: 1. Mild periarticular osteopenia, unchanged. No periarticular erosion. 2. No significant joint space narrowing or marginal osteophytes. No periarticular erosion.
--- NOTE | ~2023-09-30 | XR_ITS ---
EXAMINATION: XR FOOT, RIGHT XR FOOT, LEFT CLINICAL INFORMATION: Rheumatoid arthritis. COMPARISON: Right and left foot radiographs dated 08/07/2018. TECHNIQUE: AP, oblique, and lateral views of the right left foot. FINDINGS: Right foot: No acute fracture or dislocation. No joint space narrowing or marginal osteophytes. No osseous erosion. No abnormal soft tissue calcification. Left foot: No acute fracture or dislocation. No joint space narrowing or marginal osteophytes. No osseous erosion. No abnormal soft tissue calcification. XR/XR foot LT min 3V IMPRESSION: RIGHT FOOT: Unremarkable examination. LEFT FOOT: Unremarkable examination.
[2023-09-30 15:57] LABS: MANUAL DIFF FLAG NO
[2023-09-30 17:05] LABS: Basophils Absolute Auto 0.1 X10*3/uL (0.0-0.2); Basophils Percent Auto 0.8 % (0-2); Eosinophils Absolute Auto 0.1 X10*3/uL (0.0-0.4); Eosinophils Percent Auto 1.3 % (0-4); Hematocrit 38.5 % (37.0-47.0); Hemoglobin 12.6 g/dl (12.0-16.0); Imm Gran Abs Auto 0.02 X10*3/uL (0.00-0.03); Imm Gran Pct Auto 0.2 % (0.0-0.4); Lymphocytes Absolute Auto 3.6 X10*3/uL (1.2-4.9); Lymphocytes Percent Auto 43.8 % (20-40); Mean Corpuscular HGB Conc 32.7 g/dl (31.0-35.0); Mean Corpuscular Hemoglobin 30.9 pg (27.0-33.0); Mean Corpuscular Volume 94.4 fL (80.0-98.0); Mean Platelet Volume 10.6 fL (9.4-12.3); Monocytes Absolute Auto 0.6 X10*3/uL (0.1-1.2); Monocytes Percent Auto 6.6 % (2-11); Neutrophils Absolute Auto 3.9 x10*3/uL (2.0-8.3); Neutrophils Percent Auto 47.3 % (45-73); Platelet Count 317 X10*3/uL (160-400); Red Blood Count 4.08 X10*6/uL (4.20-5.50); Red Cell Distribution Width 12.8 % (11.0-16.0); White Blood Count 8.3 X10*3/uL (4.8-10.8)
[2023-09-30 17:11] LABS: Appearance Urine Clear; Color Urine Yellow; Glucose Urine UA Negative (Negative); Leukocyte Esterase Urine Negative (Negative); Nitrite Urine Negative (Negative); PH 5.5 (5.0-9.0); Specific Gravity - Urine 1.015 (1.005-1.025); Urine Blood Negative (Negative); Urine Ketones Negative (Negative); Urine Protein Negative (Neg-Trace)
[2023-09-30 17:32] LABS: Alanine Aminotransferase 17 U/L (0-31); Albumin Level 4.4 g/dL (3.5-5.0); Alkaline Phosphatase 65 U/L (39-117); Anion Gap 13 (12-20); Aspartate Amino Transferase 19 U/L (5-31); Bilirubin Total 0.2 mg/dL (0.0-1.0); Blood Urea Nitrogen 11 mg/dL (9-16); C Reactive Protein 0.24 mg/dL (< or = 0.50); Calcium 10.3 mg/dL (8.4-10.2); Carbon Dioxide 24 mmol/L (22-29); Chloride 106 mmol/L (96-108); Estimated Glomerular Filt Rate > 60; Glucose Random 91 mg/dL (60-115); Potassium 4.4 mmol/L (3.3-5.1); Sodium 139 mmol/L (135-145); Total Protein 7.7 g/dL (6.5-8.0)
[2023-09-30 17:59] LABS: Erythrocyte Sedimentation Rate 17 MM/HR (0-20)
== END 2023-09-30 15:43 | disposition home or self-care (01) ==
LOC: HO.XRAY 15:42
PROVIDERS: PCP Internal Medicine; Visit Provider Student in an Organized Health Care Education/Training Program
DX: R30.0 Dysuria (principal); M05.9 Rheumatoid arthritis with rheumatoid factor, unspecified
CPT/HCPCS: 36415; 73110; 73130; 73564; 73630; 80053; 81003; 85025; 85652; 86140

== ENCOUNTER 2023-10-06 15:46 | Outpatient (AMB) | payer OTHER, SELFPAY ==
--- NOTE | 2023-10-06 15:48 | MHC.OFFVIS ---
Intake Vital Signs 10/06/23 15:56 Height 5 ft 3 in Weight 139 lb 8.842 oz BMI 24.7 BP 140/90 H Blood Pressure Location Rt brachial Position Sitting Pulse 78 Pulse Source Pulse Oximeter Temp 97 F Temp Source Skin Pulse Oximetry (%) 96 Oxygen Delivery Method Room Air Intake Visit Reasons: RA Intake Note: Pt last seen 07/10/23, presents today for follow up and test results. 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 Accompanied by: Self / Same As Patient Allergies acetaminophen [From VICODIN] Allergy (Intermediate, Verified 10/06/23 15:57) ITCHING hydrocodone [From VICODIN] Allergy (Intermediate, Verified 10/06/23 15:57) ITCHING alendronate sodium Adverse Reaction (Intermediate, Verified 10/06/23 15:57) Headache tylenol Allergy (Intermediate, Uncoded 10/06/23 15:57) Itching vicodin Allergy (Intermediate, Uncoded 10/06/23 15:57) Itching Medication List - Last Reconciled 10/06/23 by Christi Antoine MD atorvastatin 40 mg PO DAILY 90 days bisacodyl (Dulcolax (bisacodyl)) 20 mg (4 x 5 mg) PO ONCE 1 day cholecalciferol (vitamin D3) 125 mcg PO QWEEK 90 days latanoprost 0.005% 1 drp ophthalmic (eye) BEDTIME lorazepam 1 mg PO BEDTIME PRN 90 days nadolol 40 mg (2 x 20 mg) PO DAILY 90 days Orencia ClickJect (abatacept) 125 mg subcut QWEEK NS paroxetine HCl 40 mg PO DAILY 90 days polyethylene glycol 3350 (Miralax) 238 grams PO ONCE 1 day sumatriptan succinate 50 mg PO Q2-4H PRN 90 days umeclidinium-vilanterol 62.5-25 mcg/actuation (Anoro Ellipta) 1 inh inhalation Q24H 90 days zoledronic [id number] 5 mg/100 mL (Reclast) ea IV .once a year HPI HPI Comments History of Present Illness Details This is a 53-year-old female with seropositive RA who returns for follow-up. On Orencia weekly for the last 2 months. She states that it is well tolerated. She feels that she is little less stiff overall. But continues to have pain in her fingers, hips, toes. She takes Aleve 440 mg 3 to 4 times a week. It takes the edge off. She received Reclast 2 months ago. Infusion was uneventful. Three days later, she went to the ER with right upper quadrant pain. Bedside ultrasound by ED physician was unremarkable. Her pain subsequently self-resolved while in the ER and she was discharged home [facility]MERLY [facility], [facility] Medical History Osteoporosis Anxiety Impaired fasting glucose Migraine COPD (chronic obstructive pulmonary disease) Pure hypercholesterolemia Vitamin D deficiency Seropositive rheumatoid arthritis Surgical History S/P anal fissurectomy Status post left foot surgery Previous section Family History Father Hyperlipidemia Paternal Grandfather Cardiovascular disease Social History Housing: Apartment Alcohol intake: current Alcohol intake frequency: holidays/special occasions only Alcohol type: wine Patient Tobacco Use Status: Former Tobacco user Tobacco use type: Cigarette Cigarettes Per Day: 20 Years Smoked: 20 e-Cigarette/Vaping Use: Never Used Second Hand Smoke Exposure: No service: No Current occupational status: employed Cognitive needs: No Hearing needs: No Vision needs: No Review of Systems Musc Reports arthralgias and Reports stiffness Physical Exam Vital Signs: Last Vital Signs Temp 97 F 10/06/23 15:56 Pulse 78 10/06/23 15:56 BP 140/90 H 10/06/23 15:56 Pulse Ox 96 10/06/23 15:56 Oxygen Delivery Method Room Air 10/06/23 15:56 BMI result Body Mass Index 24.7 Const General: cooperative, healthy appearing and comfortable Nutritional Appearance: average body habitus Orientation/consciousness: patient oriented x3 Limitations: no limitations HEENT Head: Yes normocephalic and Yes atraumatic Mouth: moist mucous membranes Resp Effort & Inspection: normal respiratory effort and able to speak in complete sentences Auscultation: clear to auscultation bilaterally Cardio Rate: regular rate Rhythm: regular rhythm Heart sounds: S1 normal heart sound present GI Inspection: No distended Palpation (GI): Soft to palpation and nontender Neuro General: patient oriented x3 Extrem Other: Left wrist pain with full flexion. Left wrist tenderness to palpation without swelling Left 1st, 2nd and 3rd MCP tenderness. Positive MCP squeeze test Left diffuse PIP tenderness,no DIP tenderness Right wrist tenderness and pain with full flexion Few MCP tenderness, positive MCP squeeze test Diffuse PIP tenderness Bilateral ankle tenderness posteriorly Multiple MTP tenderness bilaterally Assessment & Plan Assessment & Plan (1) Seropositive rheumatoid arthritis: Comment: +RF-ve [facility] dx around 2019 Arava 12/2019- 11/2020 unclear why stopped. Oral and subcutaneous methotrexate- GI upset and headaches Humira -07/2021 ineffective Enbrel - 07/2021- present - ineffective Orencia 07/2023 partially effective Code(s): M05.9 - Rheumatoid arthritis with rheumatoid factor, unspecified Plan: Seropositive rheumatoid arthritis (+ RF, CCP-) on subcu Orencia weekly. For the last 2 months. Some improvement especially in stiffness. Continue with Orencia for the next 3-4 months. If no improvement, will consider switching to subcu Orencia versus switching to another agent X-rays were done to evaluate for erosive disease. Read pending Labs before next visit in 3 months (2) Osteoporosis: Comment: DEXA 09/2022 T-score -2.5 left femoral neck Alendronate 04/2023 caused headaches Reclast 07/2023 Code(s): M81.0 - Age-related osteoporosis without current pathological fracture Qualifiers: Osteoporosis type: unspecified Presence of current pathological fracture: without current pathological fracture Qualified Code(s): M81.0 - Age-related osteoporosis without current pathological fracture Plan: Patient received her 1st dose of Reclast 07/2023. Few days later she developed abrupt onset of right upper quadrant pain. She went to the ED, right upper quadrant ultrasound was done by ED physician and it was unremarkable. Patient's pain spontaneously resolved while in the ER and she was discharged. I do not believe this was a side effect of Reclast. We will plan for next Reclast infusion 07/2024 (3) Immunization counseling: Code(s): Z71.85 - Encounter for immunization safety counseling Plan: Patient is up-to-date on her flu vaccine. She received the initial COVID series and booster. She does not want to get the new COVID booster as she had significant migraines with previous COVID vaccinations. Plan I spent 31 minutes reviewing patient's chart, evaluating patient, ordering diagnostic workup, counseling patient and documenting in the chart Orders: Orders C Reactive Protein 3 Months M05.9 - Rheumatoid arthritis with rheumatoid factor, unspecified Complete Blood Count Auto Diff 3 Months M05.9 - Rheumatoid arthritis with rheumatoid factor, unspecified Comprehensive Met. Panel 3 Months M05.9 - Rheumatoid arthritis with rheumatoid factor, unspecified Erythrocyte Sedimentation Rate 3 Months M05.9 - Rheumatoid arthritis with rheumatoid factor, unspecified Coding Level of Care Code Est Pt Level 4 (15365) Diagnoses Seropositive rheumatoid arthritis M05.9 Osteoporosis without current pathological fracture, unspecified osteoporosis type M81.0 Osteoporosis type: unspecified Presence of current pathological fracture: without current pathological fracture Immunization counseling Z71.85
[2023-10-06 15:56] VITALS: BP 140/90; PULSE 78; TEMP 36.1; O2SAT 96; BMI 24.7
== END 2023-10-06 16:18 | disposition home or self-care (01) ==
PROVIDERS: PCP Internal Medicine; Visit Provider Student in an Organized Health Care Education/Training Program
DX: M05.79 Rheumatoid arthritis with rheumatoid factor of multiple sites without organ or systems involvement (principal); M81.0 Age-related osteoporosis without current pathological fracture; Z71.85 Encounter for immunization safety counseling
CPT/HCPCS: 99214

== ENCOUNTER → 2023-10-06 15:46 | Outpatient (BNVA) | payer OTHER, SELFPAY | PROVIDERS: PCP Internal Medicine; Visit Provider Student in an Organized Health Care Education/Training Program ==

== ENCOUNTER 2023-11-05 15:38 | Outpatient (REF) | payer OTHER, SELFPAY ==
--- NOTE | ~2023-11-05 | MM_ITS ---
EXAMINATION: MM SCREENING DIGITAL BREAST TOMOSYNTHESIS, BILATERAL CLINICAL INFORMATION: Screening. Asymptomatic. COMPARISON: Mammography: This study is compared with prior exams dating back to 2017. TECHNIQUE: Digital breast tomosynthesis is performed in both the craniocaudal and mediolateral oblique views along with computer-aided detection (CAD). Synthesized 2D images are generated from the tomosynthesis. FINDINGS: There are scattered areas of fibroglandular density (ACR BI-RADS breast composition Category b). There are no significant masses, abnormal calcifications, or other abnormalities. Benign calcifications are present in view left axillary lymph nodes. The nodes are otherwise morphologically normal. MM/MM tomosynthesis screening BI IMPRESSION: No mammographic evidence of malignancy. ASSESSMENT: BI-RADS BI-RADS 2 - Benign Findings RECOMMENDATION: Routine annual mammography screening. 1 year F/U This examination should not preclude the clinical evaluation of a suspicious palpable abnormality. This patient's information was entered into a reminder system with a target due date for their next mammogram.
== END 2023-11-05 15:39 | disposition home or self-care (01) ==
LOC: HO.MAMMO 15:38
PROVIDERS: PCP Internal Medicine; Visit Provider Internal Medicine
DX: Z12.31 Encounter for screening mammogram for malignant neoplasm of breast (principal)
CPT/HCPCS: 77063; 77067

== ENCOUNTER → 2023-11-05 15:45 | Outpatient (BNV) | payer OTHER, SELFPAY | PROVIDERS: PCP Internal Medicine; Visit Provider Radiology Diagnostic Radiology | DX: Z12.31 Encounter for screening mammogram for malignant neoplasm of breast (principal) | CPT/HCPCS: 77063; 77067 ==

== ENCOUNTER 2024-01-02 06:02 | Outpatient (REF) | payer OTHER, SELFPAY ==
[2024-01-02 10:39] LABS: MANUAL DIFF FLAG NO
[2024-01-02 10:44] LABS: Basophils Percent Auto 0.4 % (0-2); Eosinophils Absolute Auto 0.2 X10*3/uL (0.0-0.4); Eosinophils Percent Auto 2.1 % (0-4); Hematocrit 39.7 % (37.0-47.0); Imm Gran Abs Auto 0.02 X10*3/uL (0.00-0.03); Imm Gran Pct Auto 0.2 % (0.0-0.4); Lymphocytes Absolute Auto 2.6 X10*3/uL (1.2-4.9); Lymphocytes Percent Auto 28.9 % (20-40); Mean Corpuscular HGB Conc 32.7 g/dl (31.0-35.0); Mean Corpuscular Hemoglobin 30.4 pg (27.0-33.0); Mean Corpuscular Volume 92.8 fL (80.0-98.0); Mean Platelet Volume 10.8 fL (9.4-12.3); Monocytes Absolute Auto 0.5 X10*3/uL (0.1-1.2); Monocytes Percent Auto 5.7 % (2-11); Neutrophils Absolute Auto 5.7 x10*3/uL (2.0-8.3); Neutrophils Percent Auto 62.7 % (45-73); Platelet Count 306 X10*3/uL (160-400); Red Blood Count 4.28 X10*6/uL (4.20-5.50); Red Cell Distribution Width 13.3 % (11.0-16.0)
[2024-01-02 11:12] LABS: Alanine Aminotransferase 19 U/L (0-31); Albumin Level 4.5 g/dL (3.5-5.0); Alkaline Phosphatase 60 U/L (39-117); Anion Gap 11 (12-20); Aspartate Amino Transferase 22 U/L (5-31); Bilirubin Total 0.3 mg/dL (0.0-1.0); Blood Urea Nitrogen 11 mg/dL (9-16); C Reactive Protein < 0.10 mg/dL (< or = 0.50); Calcium 9.8 mg/dL (8.4-10.2); Carbon Dioxide 25 mmol/L (22-29); Chloride 109 mmol/L (96-108); Cholesterol 189 mg/dL (<200); Estimated Glomerular Filt Rate 59; Glucose Fasting 94 mg/dL (60-99); Glucose Random 93 mg/dL (60-115); HDL Cholesterol 29 mg/dL (>40); LDL Cholesterol Calculated 123 mg/dL (<100); Potassium 4.3 mmol/L (3.3-5.1); Sodium 141 mmol/L (135-145); Total Protein 7.6 g/dL (6.5-8.0); Triglycerides 187 mg/dL (<150)
[2024-01-02 11:33] LABS: TSH reflex Free T4 3.24 uIU/mL (0.32-4.0); Vitamin D 25-OH Total 88.6 ng/mL (>30)
[2024-01-02 11:38] LABS: Erythrocyte Sedimentation Rate 15 MM/HR (0-20)
== END 2024-01-02 06:03 | disposition home or self-care (01) ==
LOC: HO.HMGCLDS 06:02
PROVIDERS: PCP Internal Medicine; Referring Provider Student in an Organized Health Care Education/Training Program; Visit Provider Internal Medicine
DX: I10 Essential (primary) hypertension (principal); E55.9 Vitamin D deficiency, unspecified; E78.00 Pure hypercholesterolemia, unspecified; M05.9 Rheumatoid arthritis with rheumatoid factor, unspecified
CPT/HCPCS: 36415; 80053; 80061; 82306; 84443; 85025; 85652; 86140

== ENCOUNTER 2024-01-06 15:49 | Outpatient (AMB) | payer OTHER, SELFPAY ==
--- NOTE | 2024-01-06 15:52 | A.OFFVIS_ITS ---
Intake Vital Signs 01/06/24 15:53 Height 5 ft 3 in Weight 136 lb 3.931 oz BMI 24.1 BP 108/64 Blood Pressure Location Rt brachial Position Sitting Pulse 76 Pulse Source Pulse Oximeter Pulse Oximetry (%) 97 Oxygen Delivery Method Room Air Intake Visit Reasons: RA Intake Note: Patient last seen 10/06/23 presents today for follow up and test results. Orencia restarted 3 wks ago after being off approx 1 month. 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: No Accompanied by: Self / Same As Patient Allergies acetaminophen [From VICODIN] Allergy (Intermediate, Verified 01/06/24 15:54) ITCHING hydrocodone [From VICODIN] Allergy (Intermediate, Verified 01/06/24 15:54) ITCHING alendronate sodium Adverse Reaction (Intermediate, Verified 01/06/24 15:54) Headache tylenol Allergy (Intermediate, Uncoded 01/06/24 15:54) Itching vicodin Allergy (Intermediate, Uncoded 01/06/24 15:54) Itching Medication List - Last Reconciled 01/06/24 by Christi Antoine MD atorvastatin 40 mg PO DAILY 90 days bisacodyl (Dulcolax (bisacodyl)) 20 mg (4 x 5 mg) PO ONCE 1 day latanoprost 0.005% 1 drp ophthalmic (eye) BEDTIME lorazepam 1 mg PO BEDTIME PRN 90 days nadolol 40 mg (2 x 20 mg) PO DAILY 90 days Orencia ClickJect (abatacept) 125 mg subcut QWEEK NS paroxetine HCl 40 mg PO DAILY 90 days polyethylene glycol 3350 (Miralax) 238 grams PO ONCE 1 day sumatriptan succinate 50 mg PO Q2-4H PRN 90 days umeclidinium-vilanterol 62.5-25 mcg/actuation (Anoro Ellipta) 1 inh inhalation Q24H 90 days zoledronic [id number] 5 mg/100 mL (Reclast) ea IV .once a year HPI HPI Comments History of Present Illness Details This is a 53-year-old female with seropositive RA who returns for follow-up. She states that due to an insurance change she was out of her Orencia for the month of October and for most of November. She just restarted it 3 weeks ago. When she was off the Orencia she felt significant joint pain, stiffness and weakness. She feels much better now that she is back on it but she continues to have some pain in her PIPs. In October she had a flu-like infection and was sick at home for a week. She could not go to work for a week. Does not have any other complaints today. She was taking vitamin-D 5000 units weekly for some time now. She states that her new insurance does not cover the same vitamin-D. She has been taking [id number] vitamin-D [facility] Medical History Osteoporosis Anxiety Impaired fasting glucose Migraine COPD (chronic obstructive pulmonary disease) Pure hypercholesterolemia Vitamin D deficiency Seropositive rheumatoid arthritis Surgical History S/P anal fissurectomy Status post left foot surgery Previous section Family History Father Hyperlipidemia Paternal Grandfather Cardiovascular disease Social History Housing: Apartment Alcohol intake: current Alcohol intake frequency: holidays/special occasions only Alcohol type: wine Patient Tobacco Use Status: Former Tobacco user Tobacco use type: Cigarette Cigarettes Per Day: 20 Years Smoked: 20 e-Cigarette/Vaping Use: Never Used Second Hand Smoke Exposure: No service: No Current occupational status: employed Cognitive needs: No Hearing needs: No Vision needs: No Review of Systems Musc Reports arthralgias and Reports stiffness Physical Exam Vital Signs: Last Vital Signs Pulse 76 01/06/24 15:53 BP 108/64 01/06/24 15:53 Pulse Ox 97 01/06/24 15:53 Oxygen Delivery Method Room Air 01/06/24 15:53 BMI result Body Mass Index 24.1 Const General: cooperative, healthy appearing and comfortable Nutritional Appearance: average body habitus Orientation/consciousness: patient oriented x3 Limitations: no limitations HEENT Head: Yes normocephalic and Yes atraumatic Mouth: moist mucous membranes Resp Effort & Inspection: normal respiratory effort and able to speak in complete sentences Auscultation: clear to auscultation bilaterally Cardio Rate: regular rate Rhythm: regular rhythm Heart sounds: S1 normal heart sound present GI Inspection: No distended Palpation (GI): Soft to palpation and nontender Neuro General: patient oriented x3 Extrem Other: Mild Left wrist pain with full flexion. No left wrist tenderness Negative MCP squeeze test on the left Left diffuse PIP tenderness,no DIP tenderness Right wrist with no tenderness or pain with flexion and extension Diffuse PIP tenderness, no DIP tenderness Normal range of motion of elbows and shoulders without pain No MTP tenderness bilaterally. Negative MTP squeeze test bilaterally Results Reviewed Results Reviewed: Bilateral knee x-rays 09/2023 ?FINDINGS: Right knee: No joint space narrowing or marginal osteophytes. No osseous erosion. No fracture or dislocation. No concerning lytic or blastic osseous lesion. No joint effusion. No abnormal soft tissue calcification. Left knee: No joint space narrowing or marginal osteophytes. No osseous erosion. No fracture or dislocation. No concerning lytic or blastic osseous lesion. No joint effusion. No abnormal soft tissue calcification. XR/XR knee RT 4V IMPRESSION: RIGHT KNEE: Unremarkable examination. ? LEFT KNEE: Unremarkable examination. Bilateral hand x-rays 09/2023 FINDINGS:? RIGHT HAND AND WRIST: No acute fracture or dislocation. Normal carpal alignment. No significant joint space narrowing or marginal osteophytes. No periarticular erosion. Mild periarticular osteopenia is unchanged. No abnormal soft tissue calcification. LEFT HAND AND WRIST: No acute fracture or dislocation. Normal carpal alignment. No significant joint space narrowing or marginal osteophytes. No periarticular erosion. Mild periarticular osteopenia is unchanged. No abnormal soft tissue calcification. XR/XR hand wrist RT IMPRESSION: 1. Mild periarticular osteopenia, unchanged. No periarticular erosion. ? 2. No significant joint space narrowing or marginal osteophytes. No periarticular erosion. Assessment & Plan Assessment & Plan (1) Seropositive rheumatoid arthritis: Comment: +RF-ve [employer] dx around 2019 Arava 12/2019- 11/2020 unclear why stopped. Oral and subcutaneous methotrexate- GI upset and headaches Humira -07/2021 ineffective Enbrel - 07/2021- present - ineffective Orencia 07/2023 effective interrupted 10/2022- 11/2022 due to ins change resulting in a flare. restarted 12/2022 Code(s): M05.9 - Rheumatoid arthritis with rheumatoid factor, unspecified Plan: This is a 53-year-old female with seropositive RA who returns for follow-up. Patient could not get her Orencia for about 2 months due to an insurance change. Which resulted in a flare with worsening joint pain and stiffness. She rest arted it 3 weeks ago with improvement. He has a few tender joints on exam but no swollen joints. Inflammatory markers are normal. Continue with Orencia 125 mg weekly Infectious screening: Hepatitis panel and T spot negative 06/2023 Labs before next visit in 4 months (2) Osteoporosis: Comment: DEXA 09/2022 T-score -2.5 left femoral neck Alendronate 04/2023 caused headaches Reclast 07/2023 Code(s): M81.0 - Age-related osteoporosis without current pathological fracture Qualifiers: Osteoporosis type: unspecified Presence of current pathological fracture: without current pathological fracture Qualified Code(s): M81.0 - Age- related osteoporosis without current pathological fracture Plan: Patient received her 1st dose of Reclast 07/2023. Few days later she developed abrupt onset of right upper quadrant pain. She went to the ED, right upper quadrant ultrasound was done by ED physician and it was unremarkable. Patient's pain spontaneously resolved while in the ER and she was discharged. I do not believe this was a side effect of Reclast. We will plan for next Reclast infusion 07/2024 Her vitamin-D level is 88, which is generally above target. Was taking 5000 units weekly. She states that her new insurance will no longer cover her vitamin-D. She is taking [id number] vitamin-D. Does not know the dose. Advised patient to reach out to me and let me know the exact dose. Will recheck vitamin-D level before next visit Plan I spent 25 minutes reviewing patient's chart, evaluating patient, ordering diagnostic workup, counseling patient and documenting in the chart Orders: Orders Comprehensive Met. Panel 4 Months M05.9 - Rheumatoid arthritis with rheumatoid factor, unspecified Complete Blood Count Auto Diff 4 Months M05.9 - Rheumatoid arthritis with rheumatoid factor, unspecified C Reactive Protein 4 Months M05.9 - Rheumatoid arthritis with rheumatoid factor, unspecified Erythrocyte Sedimentation Rate 4 Months M05.9 - Rheumatoid arthritis with rheumatoid factor, unspecified Vitamin D 25-OH (D2 and D3) 4 Months Z13.21 - Encounter for screening for nutritional disorder Coding Level of Care Code Est Pt Level 4 (31830) Diagnoses Seropositive rheumatoid arthritis M05.9 Osteoporosis without current pathological fracture, unspecified osteoporosis type M81.0 Osteoporosis type: unspecified Presence of current pathological fracture: without current pathological fracture
[2024-01-06 15:53] VITALS: BP 108/64; PULSE 76; O2SAT 97; BMI 24.1
== END 2024-01-06 16:26 | disposition home or self-care (01) ==
PROVIDERS: PCP Internal Medicine; Visit Provider Student in an Organized Health Care Education/Training Program
DX: M05.79 Rheumatoid arthritis with rheumatoid factor of multiple sites without organ or systems involvement (principal); M81.0 Age-related osteoporosis without current pathological fracture
CPT/HCPCS: 99213

== ENCOUNTER → 2024-01-06 15:49 | Outpatient (BNVA) | payer OTHER, SELFPAY | PROVIDERS: PCP Internal Medicine; Visit Provider Student in an Organized Health Care Education/Training Program ==

== ENCOUNTER 2024-01-28 16:47 | Outpatient (AMB) | payer OTHER, SELFPAY ==
[2024-01-28 16:48] VITALS: BP 100/72; PULSE 71; O2SAT 97; BMI 23.7
--- NOTE | 2024-01-28 16:48 | MHC.PC.OV ---
Vital Signs 01/28/24 16:48 Height 5 ft 3 in Weight 134 lb 0.4 oz BMI 23.7 BP 100/72 Blood Pressure Location Lt brachial Position Sitting Pulse 71 Pulse Source Pulse Oximeter Pulse Oximetry (%) 97 Oxygen Delivery Method Room Air Intake Visit Reasons: pe Intake Note: Patient is here today for a physical. Youth Officer Required: No Allergies acetaminophen [From VICODIN] Allergy (Intermediate, Verified 01/28/24 17:10) ITCHING hydrocodone [From VICODIN] Allergy (Intermediate, Verified 01/28/24 17:10) ITCHING alendronate sodium Adverse Reaction (Intermediate, Verified 01/28/24 17:10) Headache tylenol Allergy (Intermediate, Uncoded 01/28/24 17:10) Itching vicodin Allergy (Intermediate, Uncoded 01/28/24 17:10) Itching Medication List - Last Reconciled 01/28/24 by Kalen Jose MD atorvastatin 40 mg PO DAILY 90 days bisacodyl (Dulcolax (bisacodyl)) 20 mg (4 x 5 mg) PO ONCE 1 day cholecalciferol (vitamin D3) 100 mcg PO QWEEK latanoprost 0.005% 1 drp ophthalmic (eye) BEDTIME lorazepam 1 mg PO BEDTIME PRN 90 days nadolol 40 mg (2 x 20 mg) PO DAILY 90 days Orencia ClickJect (abatacept) 125 mg subcut QWEEK NS paroxetine HCl 40 mg PO DAILY 90 days polyethylene glycol 3350 (Miralax) 238 grams PO ONCE 1 day sumatriptan succinate 50 mg PO Q2-4H PRN 90 days umeclidinium-vilanterol 62.5-25 mcg/actuation (Anoro Ellipta) 1 inh inhalation Q24H 90 days zoledronic vhhv-osvzpdyy-rulwb 5 mg/100 mL (Reclast) ea IV .once a year Tobacco use date assessed: 01/28/24 Dental Screening Dental Screen Date: 01/28/24 Did you have a dental visit in the last 12 months?: Yes Did you have a dental problem in the last 6 months where you did not have access to dental care?: No Was dental information given to patient?: Patient has dentist HPI pe HPI Details Patient comes in today for her annual physical examination States that she currently feels okay Notes that her joint pains have again subsided a lot since she was started back on Orencia by Dr. Antoine a couple of months ago - was out of her Rx for a couple of months earlier this year She denies any headaches or dizziness Denies any chest pains, no SOB No nausea/vomiting, no abdominal pain No change in bowel habits noted She denies any acute urinary symptoms Had her follow up labs done last month - to discuss her results She had her annual mammogram last done in October 2023 - was normal She is scheduled for her screening colonoscopy in a couple of weeks on 02/09/24 at [facility] She has not had her annual pap smear and gynecology exam in a few years now - she goes to gynecology at [facility] and was advised to reach out to them to schedule her appt [facility] Medical History Osteoporosis Anxiety Impaired fasting glucose Migraine COPD (chronic obstructive pulmonary disease) Pure hypercholesterolemia Vitamin D deficiency Seropositive rheumatoid arthritis Surgical History S/P anal fissurectomy Status post left foot surgery Previous section Family History Father Hyperlipidemia Paternal Grandfather Cardiovascular disease Social History Housing: Apartment Alcohol intake: current Alcohol intake frequency: holidays/special occasions only Alcohol type: wine Patient Tobacco Use Status: Former Tobacco user Tobacco use type: Cigarette Cigarettes Per Day: 20 Years Smoked: 20 e-Cigarette/Vaping Use: Never Used Second Hand Smoke Exposure: No service: No Current occupational status: employed Cognitive needs: No Hearing needs: No Vision needs: No Questionnaire PHQ-9 Over the last 2 weeks, how often have you been bothered by any of the following problems? 1. Little interest or pleasure in doing things: not at all 2. Feeling down, depressed, or hopeless: not at all 3. Trouble falling or staying asleep, or sleeping too much: not at all 4. Feeling tired or having little energy: not at all 5. Poor appetite or overeating: not at all 6. Feeling bad about yourself - or that you are a failure or have let yourself or your family down: not at all 7. Trouble concentrating on things, such as reading the newspaper or watching television: not at all 8. Moving or speaking so slowly that other people could have noticed. Or the opposite - being so fidgety or restless that you have been moving around a lot more than usual: not at all 9. Thoughts that you would be better off or of hurting yourself in some way: not at all Total score: 0 Depression Screening Interpretation: Negative Depression Screening Done: Yes 56962 - PHQ-9 Billing: Yes Source: Developed by Drs. Timi Linares, Ninfa Gusman, Malcolm Carey and colleagues, with an educational tim from [employer] Thrive Questionnaire Date Thrive assessed: 01/28/24 I am a: Patient What is your living situation today?: I have a steady place to live Within the past 12 months, did the food you bought not last and you didn't have the money to get more?: Never true Within the past 12 months, did you worry whether your food would run out before you got money to buy more?: Never true Do you have trouble paying for medicines?: No Do you have trouble getting transportation to medical appointments?: No Do you have trouble paying your heating and electricity bill?: No Do you have trouble taking care of your child, family member or friend?: No Do you have trouble with day-to-day activities such as bathing, preparing meals, shopping, managing finances, etc.?: No Are you currently unemployed and looking for a job?: No Are you interested in more education?: No Please select the resources that you would like help with: None Currently or been in a relationship where the following occur: no concerns reported THRIVE Score: 0 AUDIT C Alcohol Use Questionnaire (AUDIT-C) 1. How often do you have a drink containing alcohol?: Monthly or less 2. How many drinks containing alcohol do you have on a typical day when you are drinking?: 1 or 2 3. How often do you have six or more drinks on one occasion?: Never Total Score: 1 Score Reviewed/Action Taken: Yes JUANITA-7 AMB Questionnaire JUANITA-7 Date JUANITA - 7 assessed: 01/28/24 Feeling nervous, anxious, or on edge: 0 = Not at all Not being able to stop or control worryin = Not at all Worrying too much about different things: 0 = Not at all Trouble relaxin = Not at all Being so restless that it is hard to sit still: 0 = Not at all Becoming easily annoyed or irritable: 0 = Not at all Feeling afraid as if something awful might happen: 0 = Not at all Total JUANITA-7 score (0-4 normal; 5-9 mild; 10-14 moderate; 15-21 severe): 0 Source: Developed by Drs. Timi Linares, Ninfa Gusman, Malcolm Carey and colleagues, with an educational tim from [employer] JUANITA-7 Assessment Billing JUANITA-7 Assessment Tool: JUANITA-7 Assessment 82634 Review of Systems Const Denies chills, Denies fatigue, Denies fever(s), Denies headache(s) and Denies malaise Eyes Denies blurry vision, Denies change in vision, Denies irritation and Denies itchy eyes ENT Denies dysphagia, Denies dizziness, Denies otalgia, Denies headache(s), Denies nasal congestion, Denies neck pain, Denies odynophagia, Denies sinus pain and Denies sore throat Card Denies chest pain, Denies rapid heart rate, Denies irregular heart rhythm, Denies palpitations and Denies dyspnea Resp Denies chest congestion, Denies cough, Denies dyspnea and Denies wheezing GI Denies abdominal pain, Denies bloating, Denies constipation, Denies dysphagia, Denies heartburn, Denies diarrhea, Denies nausea, Denies odynophagia and Denies vomiting Denies hematuria, Denies urinary frequency, Denies dysuria, Denies urinary incontinence and Denies urinary urgency Musc Denies back pain, Reports arthralgias (especially in both hands/fingers), Denies joint swelling, Denies muscle weakness and Denies neck pain Skin/Breast Denies breast pain, Denies breast mass, Denies change in pigmentation, Denies lesions, Denies rash and Denies unusual bruising Neuro Denies dizziness, Denies headache(s) and Denies paresthesias Psych Denies anxiety and Denies depression Endo Denies fatigue and Denies palpitations Mike/Lymph Denies easy bruising Aller/Immun Denies itchy eyes and Denies wheezing Physical exam (Primary Care) Vital Signs: Last Vital Signs Pulse 71 01/28/24 16:48 BP 100/72 01/28/24 16:48 Pulse Ox 97 01/28/24 16:48 Oxygen Delivery Method Room Air 01/28/24 16:48 BMI result Body Mass Index 23.7 Tobacco/Smoking Status: Tobacco use Status Tobacco use date assessed 01/28/24 01/28/24 16:55 Patient Tobacco Use Status Former Tobacco user 01/28/24 16:55 Tobacco use type Cigarette 01/28/24 16:55 e-Cigarette/Vaping Use Never Used 01/28/24 16:55 PHQ-9: PHQ-9 Score PHQ-9: Total score 0 01/28/24 17:22 Depression Screening Interpretation: Negative Thrive Assessment: Date of Thrive Assessment Date Thrive assessed 01/28/24 01/28/24 16:55 Currently or been in a relationship where the following occur: no concerns reported Const General: no acute distress, alert and awake Orientation/consciousness: patient oriented x3 HENMT Head: Yes normocephalic and Yes atraumatic Ears: external ears normal, TM's normal bilaterally and EAC's normal General nose exam: No nasal discharge present Face and sinus: Yes normal facial exam and Yes sinuses nontender Teeth and gingiva: dentition normal Throat: Yes posterior oropharynx normal and Yes tonsils normal (no TP congestion) Eyes Eyelids: Yes eyelids normal Conjunctivae: conjunctivae normal Pupils: Equal, round and reactive pupils present EOM: EOMs intact bilaterally Neck Neck: Yes no lymphadenopathy and Yes supple Thyroid: Thyroid normal Resp Auscultation: clear to auscultation bilaterally, no rales and no wheezes Cardio Rate: regular rate Rhythm: regular rhythm Heart sounds: no murmurs GI Palpation (GI): Soft to palpation, nontender and No hepatosplenomegaly present Auscultation: normal bowel sounds General: Yes no CVA tenderness Back/Spine/Pelvis Back: no CVA tenderness Thoracic/Lumbar Spine: thoracic and lumbar spine normal to inspection Skin Lesions: no lesions Rashes: no rashes Neuro General: patient oriented x3, moves all extremities, no focal motor deficits and CN's II-XI intact bilaterally Cranial nerves: Yes Equal, round and reactive pupils present Cognition (Neuro): normal cognition Gait exam (Neuro): Normal gait present Extrem General: Yes no clubbing, cyanosis or edema Results Reviewed Results Reviewed: Laboratory Tests 01/02/24 06:10 WBC 9.0 Hgb 13.0 Hct 39.7 Plt Count 306 Sodium 141 Potassium 4.3 Creatinine 0.98 Estimated GFR 59 Fasting Glucose 94 Calcium 9.8 AST 22 ALT 19 Triglycerides 187 H Cholesterol 189 LDL Cholesterol, Calc 123 H HDL Cholesterol 29 L 25-OH Vitamin D Total 88.6 TSH 3.24 Assessment and Plan Assessment & Plan (1) Annual physical exam: Code(s): Z00.00 - Encounter for general adult medical examination without abnormal findings Plan: Results of her labs done last month reviewed and discussed with patient She is up-to-date with her annual breast cancer screening - mammogram was last done in October 2023 She is scheduled for her screening colonoscopy in a couple of weeks at [facility] She has not had her annual pap smear and gynecology exam done in a few years now - she prefers to continue going to her gynecology at [facility] and will try to reach out to them to schedule her follow up appt [facility] (2) Pure hypercholesterolemia: Code(s): E78.00 - Pure hypercholesterolemia, unspecified Plan: Patient is advised that her cholesterol levels have improved from previous but she should continue to work on getting them lower Reinforced low cholesterol diet Continue Atorvastatin 40 mg QD for now Will recheck her labs and fasting lipids in 6 months for follow up (3) COPD (chronic obstructive pulmonary disease): Code(s): J44.9 - Chronic obstructive pulmonary disease, unspecified Qualifiers: COPD type: unspecified COPD Qualified Code(s): J44.9 - Chronic obstructive pulmonary disease, unspecified Plan: Continue Anoro Ellipta 62.5-25 mcg 1 inhalation QD and Albuterol HFA 1 to 2 inhalations 4 times a day as needed She was experiencing some dyspnea previously but her echocardiogram done in May 2023 came out normal and chest CT done in July 2023 revealed (+) mild atelectasis with no acute intrathoracic pathology PFTs done on 06/05/2023 revealed (+) mild obstructive airway disease with some reversibility after bronchodilator therapy; PFTs done back in 2013 showed similar results - very mild obstructive airway disorder but with NO reversibility after bronchodilator therapy back then Patient states that her breathing has improved since and she's had no respiratory issues lately If her dyspnea recurs or persists, can consider starting her back on an ICS (Flovent HFA) or combination therapy like Breo or Trelegy, and can also refer her to pulmonary for further recommendations then (4) Osteoporosis: Comment: DEXA 09/2022 T-score -2.5 left femoral neck Alendronate 04/2023 caused headaches Reclast 07/2023 Code(s): M81.0 - Age-related osteoporosis without current pathological fracture Qualifiers: Osteoporosis type: unspecified Presence of current pathological fracture: without current pathological fracture Qualified Code(s): M81.0 - Age-related osteoporosis without current pathological fracture Plan: Repeat BMD done in September 2022 revealed (+) significant decline from previous BMD in 2017 - she had a 10.3% BMD decline in the AP spine from previous and a 6.2% decline in her left femur from previous; her lowest T score is now at -2.5 in the femoral neck and the lumbar spine She was advised that her rheumatoid arthritis also increases her risks for osteoporosis because of her Tx with TNF inhibitors She was previously referred to endocrinology for further evaluation and management of her osteoporosis but patient has decided to just continue following up with rheumatology for her issues She was tried on Alendronate but could not tolerate Rx Received 1 dose of Reclast last year and experienced some abdominal pain and GI symptoms 2 to 3 days later - was concerned that these were due to side effects from Reclast but we cannot confirm these at this time Patient is encouraged to continue to stay active and exercise regularly; reinforced fall precautions Continue daily Vitamin D and calcium supplements regularly as well although her Vitamin D level is high on her recent labs - she takes 2 x 2000 units once a week and is advised to try cutting it back to 2000 units (1 caplet) Q week for now Will recheck her Vitamin D level in 6 months for follow up (5) Seropositive rheumatoid arthritis: Comment: +RF-ve [employer] dx around 2018 Arava 12/2019- 11/2020 unclear why stopped. Oral and subcutaneous methotrexate- GI upset and headaches Humira -07/2021 ineffective Enbrel - 07/2021- present - ineffective Orencia 07/2023 effective interrupted 10/2022- 11/2022 due to ins change resulting in a flare. restarted 12/2022 Code(s): M05.9 - Rheumatoid arthritis with rheumatoid factor, unspecified Plan: She was on Enbrel 50 mg SQ for about a year but did not experience any significant improvement of her joint symptoms She has also failed oral and SQ Methotrexate, Arava and Humira in the past, either due to side effects or ineffective symptom control She was started on Orencia a few months ago and has been tolerating Rx so far with no significant side effects; adds that her joint pains feel a lot better (much less pain) with the Rx Follow up with rheumatology at [facility] as scheduled (6) Migraine: Code(s): G43.909 - Migraine, unspecified, not intractable, without status migrainosus Qualifiers: Intractability: not intractable Migraine type: unspecified Status migrainosus presence: without status migrainosus Qualified Code(s): G43.909 - Migraine, unspecified, not intractable, without status migrainosus Plan: Reinforced avoidance of migraine triggers Continue Nadolol 40 mg Q HS for migraine headache prophylaxis; continue Sumatriptan 50 mg PRN for her migraine headaches (7) Impaired fasting glucose: Code(s): R73.01 - Impaired fasting glucose Plan: Her FBS was normal at 94 mg/dl on her labs done last month; her HgbA1c was normal at 5.5% when checked a few months ago Reinforced low calorie/low carb diet; exercise as tolerated (8) Vitamin D deficiency: Code(s): E55.9 - Vitamin D deficiency, unspecified Plan: Corrected on her recent labs but her level is at the higher end She was taking Vitamin D3 2000 units x 2 caplets (4000 units) Q week - will have her cut this in half to just 2000 units weekly for now Will recheck her Vitamin D level in 6 months for follow up (9) Anxiety: Code(s): F41.9 - Anxiety disorder, unspecified Plan: Continue Lorazepam 1 mg Q HS PRN and Paroxetine 40 mg QD Follow up with psychiatry as scheduled Plan Follow up in 6 months Orders: Orders Complete Blood Count Auto Diff 6 Months D64.9 - Anemia, unspecified Vitamin B12 and Folate 6 Months E53.8 - Deficiency of other specified B group vitamins Lipid Panel 6 Months E78.00 - Pure hypercholesterolemia, unspecified Comprehensive [place]. Panel Fast 6 Months E78.00 - Pure hypercholesterolemia, unspecified TSH reflex Free T4 6 Months E78.00 - Pure hypercholesterolemia, unspecified UA CC w/rflx Micro + Cult 6 Months R30.0 - Dysuria Vitamin D 25-OH Total 6 Months E55.9 - Vitamin D deficiency, unspecified Coding Level of Care Code Est Pt Prev Care 40-64y([id number]) Diagnoses Annual physical exam Z00.00 Pure hypercholesterolemia E78.00 Chronic obstructive pulmonary disease, unspecified COPD type J44.9 COPD type: unspecified COPD Osteoporosis without current pathological fracture, unspecified osteoporosis type M81.0 Osteoporosis type: unspecified Presence of current pathological fracture: without current pathological fracture Seropositive rheumatoid arthritis M05.9 Migraine without status migrainosus, not intractable, unspecified migraine type G43.909 Intractability: not intractable Migraine type: unspecified Status migrainosus presence: without status migrainosus Impaired fasting glucose R73.01 Vitamin D deficiency E55.9 Anxiety F41.9 Additional Codes JUANITA-7 Assessment Billing - JUANITA-7 Assessment Tool: JUANITA-7 Assessment [id number] ([id number])
== END 2024-01-28 17:25 | disposition home or self-care (01) ==
PROVIDERS: PCP Internal Medicine; Visit Provider Internal Medicine
DX: Z00.00 Encounter for general adult medical examination without abnormal findings (principal); E78.00 Pure hypercholesterolemia, unspecified; J44.9 Chronic obstructive pulmonary disease, unspecified; M81.0 Age-related osteoporosis without current pathological fracture; M05.9 Rheumatoid arthritis with rheumatoid factor, unspecified; G43.909 Migraine, unspecified, not intractable, without status migrainosus; R73.01 Impaired fasting glucose; E55.9 Vitamin D deficiency, unspecified; F41.9 Anxiety disorder, unspecified
CPT/HCPCS: 99396

== ENCOUNTER 2024-02-09 10:19 | Day surgery (SDC) | payer OTHER, SELFPAY ==
[2024-02-09 10:58] VITALS: BMI 23.0
[2024-02-09 11:12] VITALS: BP 112/77; PULSE 70; RESP 16; TEMP 35.9; O2SAT 97
[2024-02-09] MEDS: Lactated Ringers 1,000 ML 80 ML IVCONT (11:21)
--- NOTE | 2024-02-09 11:34 | MHC.SHP ---
Pre-Procedural Eval Section A - 24 Hr Update-Section A only Date of Service: 02/09/24 The patient is an INPATIENT: No The patient has been examined within 24 hours of the surgical procedure. The History & Physical has been completed within 30 days and I have reviewed it.: No Section B - Complete if H&P > 30 days Chief Complaint: Colon cancer screening Relevant Family History (Specify if Yes): No Relevant Social History: Tobacco Use (Former smoker) Present Medications: see Short Stay Collaborative assessment Medical History: Significant History (COPD (chronic obstructive pulmonary disease) Impaired fasting glucose Migraine Osteopenia Pure hypercholesterolemia Seropositive rheumatoid arthritis Vitamin D deficiency) History of Previous Operations: Relevant previous surgery/procedure and date(s) (Previous section S/P anal fissurectomy Status post left foot surgery) Allergies: Allergies Allergy/AdvReac Type Severity Reaction Status Date / Time acetaminophen [From VICODIN] Allergy Intermediate ITCHING Verified 02/09/24 10:53 hydrocodone [From VICODIN] Allergy Intermediate ITCHING Verified 02/09/24 10:53 alendronate sodium AdvReac Intermediate Headache Verified 02/09/24 10:53 tylenol Allergy Intermediate Itching Uncoded 02/09/24 10:53 vicodin Allergy Intermediate Itching Uncoded 02/09/24 10:53 Review of Systems Sugical H&P ROS: Negative: Constitution, Cardiovascular, Respiratory and Gastrointestinal Exam Surgical H&P Exam: Normal: Heart, Normal: Lungs, Normal: Extremities and Normal: Abdomen Plan Diagnosis/Plan: Unchanged I have reviewed the history and physical and performed a pertinent physical examination on my patient. No changes have occurred unless specified. Time Spent With Patient Time: Total time managing care of this patient today ____ minutes.
--- NOTE | 2024-02-09 11:37 | P.CONAN_ITS ---
[facility] Active Problems Active Problems: All Active Problems Immunization counseling (Acute) Osteoporosis (Acute) Shortness of breath (Acute) Dyspnea (Acute) Colon cancer screening (Acute) Annual physical exam (Acute) Acute viral bronchitis (Acute) Anxiety (Acute) Osteopenia (Acute) Impaired fasting glucose (Acute) Migraine (Acute) COPD (chronic obstructive pulmonary disease) (Acute) Pure hypercholesterolemia (Acute) Vitamin D deficiency (Acute) Seropositive rheumatoid arthritis (Acute) Past Medical History Medical History Osteoporosis Anxiety Impaired fasting glucose Migraine COPD (chronic obstructive pulmonary disease) Pure hypercholesterolemia Vitamin D deficiency Seropositive rheumatoid arthritis Family History Family History Father Hyperlipidemia Paternal Grandfather Cardiovascular disease Family history of problems with anesthesia: No Surgical History Surgical History S/P anal fissurectomy Status post left foot surgery Previous section History of Problems with Anesthesia: No Social History Social History Housing: Apartment Alcohol intake: current Alcohol intake frequency: holidays/special occasions only Alcohol type: wine Patient Tobacco Use Status: Former Tobacco user Tobacco use type: Cigarette Cigarettes Per Day: 20 Years Smoked: 20 e-Cigarette/Vaping Use: Never Used Second Hand Smoke Exposure: No Use of substances other than those prescribed or required for medical reasons: Yes Substance Use Frequency: Daily Are you DNR?: No Advance Directives: No Advance Directives Information Provided: Yes service: No Current occupational status: employed Cognitive needs: No Hearing needs: No Vision needs: No Meds Allergies Allergy/AdvReac Type Severity Reaction Status Date / Time acetaminophen [From VICODIN] Allergy Intermediate ITCHING Verified 02/09/24 10 :53 hydrocodone [From VICODIN] Allergy Intermediate ITCHING Verified 02/09/24 10:53 alendronate sodium AdvReac Intermediate Headache Verified 02/09/24 10:53 tylenol Allergy Intermediate Itching Uncoded 02/09/24 10:53 vicodin Allergy Intermediate Itching Uncoded 02/09/24 10:53 Active Medications: Current Medications Lactated Ringer's (Lr) 1,000 mls @ 80 mls/hr IVCONT .[id number] [facility] Last Admin: 02/09/24 11:21 Dose: 80 mls/hr Home Medications ?Medication ?Instructions ?Recorded ?Confirmed ?Last Taken ?Type latanoprost 0.005 % eye drops 1 drp ophthalmic (eye) BEDTIME 11/27/22 01/28/24 Unknown History zoledronic acid 5 mg/100 mL in ea IV .once a year 08/06/23 01/28/24 Unknown History mannitol 5 %-water intravenous piggybck (Reclast) cholecalciferol (vitamin D3) 50 50 mcg PO QWEEK 01/28/24 02/09/24 02/08/24 History mcg (2,000 unit) capsule Exam Height,Weight and Vital Signs: Height 5 ft 3 in Weight 58.967 kg Last Vital Signs Temp 96.6 F L 02/09/24 11:12 Pulse 70 02/09/24 11:12 Resp 16 02/09/24 11:12 BP 112/77 02/09/24 11:12 Pulse Ox 97 02/09/24 11:12 O2 Del Method Room Air 02/09/24 11:12 Airway Mallampati Class: II (2 caps lateral left, missing acouple) TM Dist: >3cm Neck ROM: Full Heart: rrr Lungs: cts Assessment and Plan Assessment Anesthesia Assessment: Anesthesia Plan Discussed and Chart Reviewed Final Anesthetic Review Family History of Problems with Anesthesia: No History of Problems with Anesthesia: No NPO: Yes ASA Class: III Final Preanesthetic Review: No Changes in Pt Med Stat, Meds/Allgs Chart Reviewed and Consent Obtained/Reviewed Patient Risk: Intermediate Procedure Risk: Low Anesthetic Plan Anesthetic Plan: MAC: Disposition: Standard PACU
--- NOTE | 2024-02-09 11:39 | W.PM.OPN ---
Operative Note Operative Note Date of Service: 02/09/24 Narrative: COLONOSCOPY TILL CECUM WITH SNARE POLYPECTOMY Pre-op diagnosis: Colon cancer screening, (first colonoscopy). Post-op diagnosis:? Colon polyps, non-bleeding cecal AVM, Diverticulosis, hemorrhoids Endoscopist:? Georges Jones MD Anesthesia:?MAC Consent: Indications for the procedure and potential complications of bleeding, perforation, reaction to medications and missed diagnosis were discussed with the patient and informed consent was obtained. Instrument: Olympus PCF H 190 L variable stiffness pediatric colonoscope Monitoring: Vital signs and clinical assessment, intermittent blood pressure monitoring, continuous EKG monitoring, Pulse oximetry and Carbon Dioxide monitoring were done throughout the procedure. Please see anesthesia flowsheet. Colon withdrawl time was 15 minutes. Procedure: The patient was placed in the left lateral decubitis position and pre-procedure medications were administered. After a digital rectal examination of the ano-rectum, the video colonoscope was inserted into the rectum and advanced through the colon to the cecum. The colonoscope was slowly withdrawn in a retrograde panoramic fashion and the colon mucosa was carefully examined including a retroflexed view of the rectum. Findings and interventions are described below. Procedure Difficulty: without difficulty Findings: Terminal Ileum: Not evaluated Cecum: A 10 - 12 mm non-bleeding AVM Ascending Colon: A 10 mm sessile polyp in the distal AC - removed with a cold snare. A 15 to 18 mm sessile polyp in the distal AC removed with a hot snare. Polypectomy site was closed with 1 hemoclip. Transverse Colon: Normal Descending Colon: Normal Sigmoid Colon: Moderate diverticulosis Rectum: Normal Ano-rectum: Small internal hemorrhoids Colon preparation: Excellent after some irrigation. [place] Bowel Preparation Scale Right colon; 3 Transverse colon: 3 Left colon; 3 (0 = Unprepared colon segment with mucosa not seen due to solid stool that cannot be cleared. 1 = Portion of mucosa of the colon segment seen, but other areas of the colon segment not well seen due to staining, residual stool and/or opaque liquid. 2 = Minor amount of residual staining, small fragments of stool and/or opaque liquid, but mucosa of colon segment seen well. 3 = Entire mucosa of colon segment seen well with no residual staining, small fragments of stool or opaque liquid) Impression and Post Procedure Diagnosis: Colonoscopy Findings: Two medium sized polyps were removed A 10 - 12 mm non-bleeding AVM Moderate diverticulosis seen in the sigmoid colon Small hemorrhoids on retroflexed exam. Plan: I will send a letter with pathology results. Repeat Colonoscopy in 3 years if polyps are adenomatous and 10 year if polyps are hyperplastic. Above findings were reviewed with the patient and relevant handouts were given and the discharge area.
[2024-02-09 12:11] VITALS: BP 110/67; PULSE 66; RESP 16; TEMP 36.1; O2SAT 98
[2024-02-09 12:26] VITALS: BP 107/81; PULSE 59; RESP 18; O2SAT 99
[2024-02-09 12:41] VITALS: BP 111/78; PULSE 71; RESP 15; TEMP 36.2; O2SAT 98
== END 2024-02-09 13:15 | disposition home or self-care (01) ==
PROVIDERS: PCP Internal Medicine; Visit Provider Internal Medicine Gastroenterology
PROC: 0DJD8ZZ Inspection of Lower Intestinal Tract, Via Natural or Artificial Opening Endoscopic (ICD-10-PCS; CPT 45378; principal; 2024-02-09 12:40)
DX: Z12.11 Encounter for screening for malignant neoplasm of colon (principal); D12.2 Benign neoplasm of ascending colon; K57.30 Diverticulosis of large intestine without perforation or abscess without bleeding; K55.20 Angiodysplasia of colon without hemorrhage; K64.8 Other hemorrhoids; J44.9 Chronic obstructive pulmonary disease, unspecified; M05.9 Rheumatoid arthritis with rheumatoid factor, unspecified; M85.80 Other specified disorders of bone density and structure, unspecified site; E78.00 Pure hypercholesterolemia, unspecified; R73.01 Impaired fasting glucose; Z79.899 Other long term (current) drug therapy; Z79.83 Long term (current) use of 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; Z88.8 Allergy status to other drugs, medicaments and biological substances; Z87.891 Personal history of nicotine dependence
CPT/HCPCS: 45385; 88305; J2704

== ENCOUNTER → 2024-02-09 10:19 | Outpatient (BNV) | payer OTHER, SELFPAY | PROVIDERS: PCP Internal Medicine; Visit Provider Internal Medicine Gastroenterology | DX: Z12.11 Encounter for screening for malignant neoplasm of colon (principal); D12.2 Benign neoplasm of ascending colon; K57.30 Diverticulosis of large intestine without perforation or abscess without bleeding; Q27.33 Arteriovenous malformation of digestive system vessel; K64.8 Other hemorrhoids | CPT/HCPCS: 45385 ==

== ENCOUNTER 2024-05-03 15:50 | Outpatient (REF) | payer OTHER, SELFPAY ==
[2024-05-03 16:01] LABS: MANUAL DIFF FLAG NO
[2024-05-03 16:32] LABS: Basophils Absolute Auto 0.1 X10*3/uL (0.0-0.2); Basophils Percent Auto 0.6 % (0-2); Eosinophils Absolute Auto 0.1 X10*3/uL (0.0-0.4); Eosinophils Percent Auto 0.9 % (0-4); Hematocrit 39.1 % (37.0-47.0); Hemoglobin 13.1 g/dl (12.0-16.0); Imm Gran Abs Auto 0.03 X10*3/uL (0.00-0.03); Imm Gran Pct Auto 0.3 % (0.0-0.4); Lymphocytes Absolute Auto 3.9 X10*3/uL (1.2-4.9); Lymphocytes Percent Auto 36.8 % (20-40); Mean Corpuscular HGB Conc 33.5 g/dl (31.0-35.0); Mean Corpuscular Volume 92.7 fL (80.0-98.0); Mean Platelet Volume 10.4 fL (9.4-12.3); Monocytes Absolute Auto 0.7 X10*3/uL (0.1-1.2); Monocytes Percent Auto 6.8 % (2-11); Neutrophils Absolute Auto 5.8 x10*3/uL (2.0-8.3); Neutrophils Percent Auto 54.6 % (45-73); Platelet Count 309 X10*3/uL (160-400); Red Blood Count 4.22 X10*6/uL (4.20-5.50); White Blood Count 10.5 X10*3/uL (4.8-10.8)
[2024-05-03 17:12] LABS: Alanine Aminotransferase 17 U/L (0-31); Albumin Level 4.7 g/dL (3.5-5.0); Alkaline Phosphatase 57 U/L (39-117); Anion Gap 16 (12-20); Aspartate Amino Transferase 18 U/L (5-31); Bilirubin Total 0.3 mg/dL (0.0-1.0); Blood Urea Nitrogen 16 mg/dL (9-16); C Reactive Protein 0.13 mg/dL (< or = 0.50); Calcium 9.7 mg/dL (8.4-10.2); Carbon Dioxide 24 mmol/L (22-29); Chloride 104 mmol/L (96-108); Estimated Glomerular Filt Rate > 60; Glucose Random 93 mg/dL (60-115); Potassium 4.5 mmol/L (3.3-5.1); Sodium 139 mmol/L (135-145); Total Protein 7.7 g/dL (6.5-8.0)
[2024-05-03 17:34] LABS: Erythrocyte Sedimentation Rate 19 MM/HR (0-20)
[2024-05-07 18:03] LABS: Vitamin D 25-OH, D2 <4 ng/mL; Vitamin D 25-OH, D3 29 ng/mL; Vitamin D 25-OH, Total 29 ng/mL (30-100)
== END 2024-05-03 15:51 | disposition home or self-care (01) ==
LOC: HO.LAB 15:50
PROVIDERS: PCP Internal Medicine; Visit Provider Student in an Organized Health Care Education/Training Program
DX: M05.9 Rheumatoid arthritis with rheumatoid factor, unspecified (principal); Z13.21 Encounter for screening for nutritional disorder
CPT/HCPCS: 36415; 80053; 82306; 85025; 85652; 86140

== ENCOUNTER 2024-05-06 15:48 | Outpatient (AMB) | payer OTHER, SELFPAY ==
--- NOTE | 2024-05-06 15:49 | MHC.OFFVIS ---
Vital Signs 05/06/24 15:51 Height 5 ft 3 in Weight 135 lb 9.349 oz BMI 24.0 BP 115/72 Blood Pressure Location Lt brachial Position Sitting Respiration 16 Pulse 67 Pulse Source Pulse Oximeter Pulse Oximetry (%) 96 Oxygen Delivery Method Room Air Intake Visit Reasons: RA/lm Intake Note: Patient presents for RA. Allergies acetaminophen [From VICODIN] Allergy (Intermediate, Verified 05/06/24 15:51) ITCHING hydrocodone [From VICODIN] Allergy (Intermediate, Verified 05/06/24 15:51) ITCHING alendronate sodium Adverse Reaction (Intermediate, Verified 05/06/24 15:51) Headache tylenol Allergy (Intermediate, Uncoded 02/09/24 10:53) Itching vicodin Allergy (Intermediate, Uncoded 02/09/24 10:53) Itching Medication List - Last Reconciled 05/06/24 by Christi Antoine MD atorvastatin 40 mg PO DAILY 90 days cholecalciferol (vitamin D3) 50 mcg PO QWEEK latanoprost 0.005% 1 drp ophthalmic (eye) BEDTIME lorazepam 1 mg PO BEDTIME PRN 90 days nadolol 40 mg (2 x 20 mg) PO DAILY 90 days Orencia ClickJect (abatacept) 125 mg subcut QWEEK NS paroxetine HCl 40 mg PO DAILY 90 days sumatriptan succinate 50 mg PO Q2-4H PRN 90 days umeclidinium-vilanterol 62.5-25 mcg/actuation (Anoro Ellipta) 1 inh inhalation Q24H 90 days zoledronic rzau-bvfiigfp-ctncb 5 mg/100 mL (Reclast) ea IV .once a year HPI Comments Details: This is a 53-year-old female with seropositive RA who returns for follow-up. She remains on Orencia weekly. States that she has been feeling relatively well overall. Today she has some pain in her right 5th MCP and PIP but no swelling. Denies any recent infections. FOR[facility]LY [facility], [facility] Medical History Osteoporosis Anxiety Impaired fasting glucose Migraine COPD (chronic obstructive pulmonary disease) Pure hypercholesterolemia Vitamin D deficiency Seropositive rheumatoid arthritis Surgical History S/P anal fissurectomy Status post left foot surgery Previous section Family History Father Hyperlipidemia Paternal Grandfather Cardiovascular disease Social History Housing: Apartment Alcohol intake: current Alcohol intake frequency: holidays/special occasions only Alcohol type: wine Patient Tobacco Use Status: Former Tobacco user Tobacco use type: Cigarette Cigarettes Per Day: 20 Years Smoked: 20 e-Cigarette/Vaping Use: Never Used Second Hand Smoke Exposure: No service: No Current occupational status: employed Cognitive needs: No Hearing needs: No Vision needs: No Review of Systems Musc Reports arthralgias and Denies joint swelling Physical Exam Vital Signs: Last Vital Signs Pulse 67 05/06/24 15:51 Resp 16 05/06/24 15:51 BP 115/72 05/06/24 15:51 Pulse Ox 96 05/06/24 15:51 Oxygen Delivery Method Room Air 05/06/24 15:51 BMI result Body Mass Index 24.0 Const General: cooperative, healthy appearing and comfortable Nutritional Appearance: average body habitus Orientation/consciousness: patient oriented x3 Limitations: no limitations HEENT Head: Yes normocephalic and Yes atraumatic Mouth: moist mucous membranes Resp Effort & Inspection: normal respiratory effort and able to speak in complete sentences Auscultation: clear to auscultation bilaterally Cardio Rate: regular rate Rhythm: regular rhythm Heart sounds: S1 normal heart sound present GI Inspection: No distended Palpation (GI): Soft to palpation and nontender Neuro General: patient oriented x3 Extrem Other: No active synovitis left hand and wrist Right 5th MCP, PIP and DIP tenderness without swelling Normal range of motion of elbows and shoulders without pain No MTP tenderness bilaterally. Negative MTP squeeze test bilaterally Results Reviewed Results Reviewed: Bilateral knee x-rays 09/2023 ?FINDINGS: Right knee: No joint space narrowing or marginal osteophytes. No osseous erosion. No fracture or dislocation. No concerning lytic or blastic osseous lesion. No joint effusion. No abnormal soft tissue calcification. Left knee: No joint space narrowing or marginal osteophytes. No osseous erosion. No fracture or dislocation. No concerning lytic or blastic osseous lesion. No joint effusion. No abnormal soft tissue calcification. XR/XR knee RT 4V IMPRESSION: RIGHT KNEE: Unremarkable examination. ? LEFT KNEE: Unremarkable examination. Bilateral hand x-rays 09/2023 FINDINGS:? RIGHT HAND AND WRIST: No acute fracture or dislocation. Normal carpal alignment. No significant joint space narrowing or marginal osteophytes. No periarticular erosion. Mild periarticular osteopenia is unchanged. No abnormal soft tissue calcification. LEFT HAND AND WRIST: No acute fracture or dislocation. Normal carpal alignment. No significant joint space narrowing or marginal osteophytes. No periarticular erosion. Mild periarticular osteopenia is unchanged. No abnormal soft tissue calcification. XR/XR hand wrist RT IMPRESSION: 1. Mild periarticular osteopenia, unchanged. No periarticular erosion. ? 2. No significant joint space narrowing or marginal osteophytes. No periarticular erosion. Assessment & Plan Assessment & Plan (1) Seropositive rheumatoid arthritis: Comment: +RF-ve [employer] dx around 2018 Arava 12/2019- 11/2020 unclear why stopped. Oral and subcutaneous methotrexate- GI upset and headaches Humira -07/2021 ineffective Enbrel - 07/2021- present - ineffective Orencia 07/2023 effective interrupted 10/2022- 11/2022 due to ins change resulting in a flare. restarted 12/2022 effective Code(s): M05.9 - Rheumatoid arthritis with rheumatoid factor, unspecified Category: Medical Plan: This is a 53-year-old female with seropositive RA who returns for follow-up. On Orencia 125 mg once weekly. Patient is doing quite well with no active synovitis. Inflammatory markers are normal. Continue with Orencia 125 mg weekly Infectious screening: Hepatitis panel and T spot negative 06/2023 Labs before next visit in 6 months (2) Osteoporosis: Comment: DEXA 09/2022 T-score -2.5 left femoral neck Alendronate 04/2023 caused headaches Reclast 07/2023 Code(s): M81.0 - Age-related osteoporosis without current pathological fracture Category: Medical Qualifiers: Osteoporosis type: unspecified Presence of current pathological fracture: without current pathological fracture Qualified Code(s): M81.0 - Age-related osteoporosis without current pathological fracture Plan: Patient received her 1st dose of Reclast 07/2023. Few days later she developed abrupt onset of right upper quadrant pain. She went to the ED, right upper quadrant ultrasound was done by ED physician and it was unremarkable. Patient's pain spontaneously resolved while in the ER and she was discharged. I do not believe this was a side effect of Reclast. We will plan for next Reclast infusion 07/2024. BMP within 2 weeks before infusion Check vitamin-D level Plan I spent 25 minutes reviewing patient's chart, evaluating patient, ordering diagnostic workup, counseling patient and documenting in the chart Orders: Orders Complete Blood Count Auto Diff 6 Months M05.9 - Rheumatoid arthritis with rheumatoid factor, unspecified Comprehensive Met. Panel 6 Months M05.9 - Rheumatoid arthritis with rheumatoid factor, unspecified C Reactive Protein 6 Months M05.9 - Rheumatoid arthritis with rheumatoid factor, unspecified Hepatitis A,B,C Profile 6 Months Z11.59 - Encounter for screening for other viral diseases Erythrocyte Sedimentation Rate 6 Months M05.9 - Rheumatoid arthritis with rheumatoid factor, unspecified T Spot TB 6 Months Z11.7 - Encounter for testing for latent tuberculosis infection Vitamin D 25-OH (D2 and D3) 6 Months E55.9 - Vitamin D deficiency, unspecified Basic Metabolic Panel 3 Months M81.0 - Age-related osteoporosis without current pathological fracture Referrals Infusion Center Notification M81.0 - Age-related osteoporosis without current pathological fracture Coding Level of Care Code Est Pt Level 4 (46778) Diagnoses Seropositive rheumatoid arthritis M05.9 Osteoporosis without current pathological fracture, unspecified osteoporosis type M81.0 Osteoporosis type: unspecified Presence of current pathological fracture: without current pathological fracture
[2024-05-06 15:51] VITALS: BP 115/72; PULSE 67; RESP 16; O2SAT 96; BMI 24.0
== END 2024-05-06 16:29 | disposition home or self-care (01) ==
PROVIDERS: PCP Internal Medicine; Visit Provider Student in an Organized Health Care Education/Training Program
DX: M05.79 Rheumatoid arthritis with rheumatoid factor of multiple sites without organ or systems involvement (principal); M81.0 Age-related osteoporosis without current pathological fracture
CPT/HCPCS: 99214

== ENCOUNTER → 2024-05-06 15:48 | Outpatient (BNVA) | payer OTHER, SELFPAY | PROVIDERS: PCP Internal Medicine; Visit Provider Student in an Organized Health Care Education/Training Program ==

== ENCOUNTER 2024-09-04 07:58 | Outpatient (REF) | payer OTHER, SELFPAY ==
[2024-09-04 11:12] LABS: MANUAL DIFF FLAG NO
[2024-09-04 11:27] LABS: Basophils Percent Auto 0.5 % (0-2); Eosinophils Absolute Auto 0.1 X10*3/uL (0.0-0.4); Eosinophils Percent Auto 1.5 % (0-4); Hematocrit 37.4 % (37.0-47.0); Hemoglobin 12.5 g/dl (12.0-16.0); Imm Gran Abs Auto 0.02 X10*3/uL (0.00-0.03); Imm Gran Pct Auto 0.2 % (0.0-0.4); Lymphocytes Absolute Auto 2.3 X10*3/uL (1.2-4.9); Lymphocytes Percent Auto 28.5 % (20-40); Mean Corpuscular HGB Conc 33.4 g/dl (31.0-35.0); Mean Corpuscular Hemoglobin 30.9 pg (27.0-33.0); Mean Corpuscular Volume 92.3 fL (80.0-98.0); Mean Platelet Volume 10.7 fL (9.4-12.3); Monocytes Absolute Auto 0.4 X10*3/uL (0.1-1.2); Monocytes Percent Auto 5.1 % (2-11); Neutrophils Absolute Auto 5.2 x10*3/uL (2.0-8.3); Neutrophils Percent Auto 64.2 % (45-73); Platelet Count 293 X10*3/uL (160-400); Red Blood Count 4.05 X10*6/uL (4.20-5.50); Red Cell Distribution Width 13.1 % (11.0-16.0); White Blood Count 8.1 X10*3/uL (4.8-10.8)
[2024-09-04 11:44] LABS: Alanine Aminotransferase 23 U/L (0-31); Albumin Level 4.3 g/dL (3.5-5.0); Alkaline Phosphatase 58 U/L (39-117); Anion Gap 11 (12-20); Aspartate Amino Transferase 27 U/L (5-31); Bilirubin Total 0.3 mg/dL (0.0-1.0); Blood Urea Nitrogen 14 mg/dL (9-16); Calcium 9.4 mg/dL (8.4-10.2); Carbon Dioxide 26 mmol/L (22-29); Chloride 109 mmol/L (96-108); Cholesterol 183 mg/dL (<200); Estimated Glomerular Filt Rate > 60; Glucose Fasting 96 mg/dL (60-99); HDL Cholesterol 31 mg/dL (>40); LDL Cholesterol Calculated 115 mg/dL (<100); Potassium 4.5 mmol/L (3.3-5.1); Sodium 141 mmol/L (135-145); Triglycerides 188 mg/dL (<150)
[2024-09-04 12:11] LABS: TSH reflex Free T4 3.08 uIU/mL (0.32-4.0); Vitamin D 25-OH Total 66.8 ng/mL (>30)
[2024-09-04 12:17] LABS: Folate 10.3 ng/mL (> or = 4.0); Vitamin B12 304 pg/mL (200-900)
[2024-09-04 15:11] LABS: Appearance Urine Clear; Color Urine Yellow; Glucose Urine UA Negative (Negative); Leukocyte Esterase Urine Negative (Negative); Nitrite Urine Negative (Negative); PH 5.5 (5.0-9.0); Specific Gravity - Urine 1.015 (1.005-1.025); Urine Blood Negative (Negative); Urine Ketones Trace mg/dL (Negative); Urine Protein Negative (Neg-Trace)
== END 2024-09-04 07:59 | disposition home or self-care (01) ==
LOC: HO.HMGCLDS 07:58
PROVIDERS: PCP Internal Medicine; Referring Provider Student in an Organized Health Care Education/Training Program; Visit Provider Internal Medicine
DX: D64.9 Anemia, unspecified (principal); E78.00 Pure hypercholesterolemia, unspecified; R30.0 Dysuria; E53.8 Deficiency of other specified B group vitamins; E55.9 Vitamin D deficiency, unspecified
CPT/HCPCS: 36415; 80053; 80061; 81003; 82306; 82607; 82746; 84443; 85025

== ENCOUNTER 2024-09-10 14:08 | Outpatient (RCR) | payer OTHER, SELFPAY ==
[2024-09-10 14:09] VITALS: BP 130/62; PULSE 68; RESP 14; TEMP 36.9; O2SAT 96
[2024-09-10] MEDS: Zoledronic Acid/Mannitol-Water 5 MG/100 ML PGGYBK.BTL IV (14:22)
[2024-09-10] MEDS: 0.9 % Sodium Chloride Flush 10 ML SYRINGE 5 ML IVFLUSH (14:41)
== END 2024-09-10 15:13 | disposition home or self-care (01) ==
LOC: HO.INF 14:08
PROVIDERS: Visit Provider Student in an Organized Health Care Education/Training Program
DX: M81.0 Age-related osteoporosis without current pathological fracture (principal)
CPT/HCPCS: 96374; J3489

== ENCOUNTER 2024-09-10 16:11 | Outpatient (AMB) | payer OTHER, SELFPAY ==
[2024-09-10 16:34] VITALS: BP 100/62; PULSE 70; O2SAT 96; BMI 24.3
--- NOTE | 2024-09-10 16:34 | MHC.PC.OV ---
Vital Signs 09/10/24 16:34 Height 5 ft 3 in Weight 137 lb 2 oz BMI 24.3 BP 100/62 Blood Pressure Location Lt brachial Position Sitting Pulse 70 Pulse Source Pulse Oximeter Pulse Oximetry (%) 96 Oxygen Delivery Method Room Air Intake Visit Reasons: 6m f/u/migraine Assistant Director Of Nursing Required: No Accompanied by: Self / Same As Patient Allergies acetaminophen [From VICODIN] Allergy (Intermediate, Verified 09/10/24 16:49) ITCHING hydrocodone [From VICODIN] Allergy (Intermediate, Verified 09/10/24 16:49) ITCHING alendronate sodium Adverse Reaction (Intermediate, Verified 09/10/24 16:49) Headache tylenol Allergy (Intermediate, Uncoded 09/10/24 16:49) Itching vicodin Allergy (Intermediate, Uncoded 09/10/24 16:49) Itching Medication List - Last Reconciled 09/10/24 by Kalen Jose MD atorvastatin 40 mg PO DAILY 90 days cholecalciferol (vitamin D3) 50 mcg PO QWEEK latanoprost 0.005% 1 drp ophthalmic (eye) BEDTIME lorazepam 1 mg PO BEDTIME PRN 90 days nadolol 40 mg (2 x 20 mg) PO DAILY 90 days Orencia ClickJect (abatacept) 125 mg subcut QWEEK NS paroxetine HCl 40 mg PO DAILY 90 days sumatriptan succinate 50 mg PO Q2-4H PRN 90 days umeclidinium-vilanterol 62.5-25 mcg/actuation (Anoro Ellipta) 1 inh inhalation Q24H 90 days zoledronic vcnc-nkuxgcbu-odyxr 5 mg/100 mL (Reclast) ea IV .once a year Tobacco use date assessed: 01/28/24 Dental Screening Dental Screen Date: 01/28/24 HPI 6m f/u/migraine HPI Details Patient comes in today for her follow up visit States that she feels okay and that she has been doing well on Orencia for the past year and that her joint pains have been well-controlled She denies any dizziness; states that she still has on and off migraine headaches with these occur on average just about 2 to 3 times a month but when they occur, they would bother her for several hours despite her Rx and she would still have to stay in a dark room to minimize her symptoms Denies any chest pains, no SOB No nausea/vomiting, no abdominal pain No change in bowel habits noted She had her follow up labs done last week - to discuss her results [facility] Medical History Osteoporosis Anxiety Impaired fasting glucose Migraine COPD (chronic obstructive pulmonary disease) Pure hypercholesterolemia Vitamin D deficiency Seropositive rheumatoid arthritis Surgical History (Updated 09/11/24 @ 04:02 by Kalen Jose MD) History of colonoscopy S/P anal fissurectomy Status post left foot surgery Previous section Family History Father Hyperlipidemia Paternal Grandfather Cardiovascular disease Social History Housing: Apartment Alcohol intake: current Alcohol intake frequency: holidays/special occasions only Alcohol type: wine Patient Tobacco Use Status: Former Tobacco user Tobacco use type: Cigarette Cigarettes Per Day: 20 Years Smoked: 20 e-Cigarette/Vaping Use: Never Used Second Hand Smoke Exposure: No service: No Current occupational status: employed Cognitive needs: No Hearing needs: No Vision needs: No Questionnaire Thrive Questionnaire Date Thrive assessed: 01/28/24 AUDIT C Alcohol Use Questionnaire (AUDIT-C) 2. How many drinks containing alcohol do you have on a typical day when you are drinking?: 1 or 2 3. How often do you have six or more drinks on one occasion?: Less than monthly Total Score: 1 JUANITA-7 AMB Questionnaire JUANITA-7 Date JUANITA - 7 assessed: 01/28/24 Source: Developed by Drs. Timi Linares, Ninfa Gusman, Malcolm Carey and colleagues, with an educational tim from [employer]. Review of Systems Const Denies chills, Denies fatigue, Denies fever(s) and Reports headache(s) (on and off, usually 2 to 3 times a month lately) ENT Denies dysphagia, Denies dizziness, Denies otalgia, Reports headache(s) (on and off, usually 2 to 3 times a month lately), Denies neck pain, Denies odynophagia and Denies sore throat Card Denies chest pain, Denies irregular heart rhythm, Denies palpitations and Denies dyspnea Resp Denies chest congestion, Denies cough and Denies dyspnea GI Denies abdominal pain, Denies constipation, Denies dysphagia, Denies heartburn, Denies diarrhea, Denies nausea, Denies odynophagia and Denies vomiting Denies urinary frequency, Denies dysuria and Denies urinary urgency Musc Denies back pain, Reports arthralgias (especially in both hands/fingers), Denies joint swelling and Denies neck pain Skin/Breast Denies rash Neuro Denies dizziness, Reports headache(s) (on and off, usually 2 to 3 times a month lately) and Denies paresthesias Psych Denies anxiety and Denies depression Endo Denies fatigue and Denies palpitations Mike/Lymph Denies easy bruising Physical exam (Primary Care) Vital Signs: Last Vital Signs Pulse 70 09/10/24 16:34 BP 100/62 09/10/24 16:34 Pulse Ox 96 09/10/24 16:34 Oxygen Delivery Method Room Air 09/10/24 16:34 BMI result Body Mass Index 24.3 Tobacco/Smoking Status: Tobacco use Status Tobacco use date assessed 01/28/24 09/10/24 16:36 Patient Tobacco Use Status Former Tobacco user 09/10/24 16:36 Tobacco use type Cigarette 09/10/24 16:36 e-Cigarette/Vaping Use Never Used 09/10/24 16:36 Thrive Assessment: Date of Thrive Assessment Date Thrive assessed 01/28/24 09/10/24 16:36 Const General: no acute distress and alert HENMT Ears: TM's normal bilaterally and EAC's normal Throat: Yes posterior oropharynx normal and Yes tonsils normal (no TP congestion) Neck Neck: Yes no lymphadenopathy and Yes supple Thyroid: Thyroid normal Resp Auscultation: clear to auscultation bilaterally, no rales and no wheezes Cardio Rate: regular rate Rhythm: regular rhythm Heart sounds: no murmurs GI Palpation (GI): Soft to palpation and nontender Auscultation: normal bowel sounds General: Yes no CVA tenderness Back/Spine/Pelvis Back: no CVA tenderness Thoracic/Lumbar Spine: thoracic and lumbar spine normal to inspection Skin Rashes: no rashes Extrem General: Yes no clubbing, cyanosis or edema Results Reviewed Results Reviewed: Laboratory Tests 09/04/24 09/04/24 08:15 14:02 WBC 8.1 Hgb 12.5 Hct 37.4 Plt Count 293 Sodium 141 Potassium 4.5 Creatinine 0.80 Estimated GFR > 60 Fasting Glucose 96 Calcium 9.4 AST 27 ALT 23 Triglycerides 188 H Cholesterol 183 LDL Cholesterol, Calc 115 H HDL Cholesterol 31 L Vitamin B12 304 25-OH Vitamin D Total 66.8 TSH 3.08 Ur Specific [place] 1.015 Urine Protein Negative Urine Glucose (UA) Negative Urine Blood Negative Urine Nitrite Negative Ur Leukocyte Esterase Negative Coding Level of Care Code Est Pt Level 4 (82256) Diagnoses Pure hypercholesterolemia E78.00 Chronic obstructive pulmonary disease, unspecified COPD type J44.9 COPD type: unspecified COPD Osteoporosis without current pathological fracture, unspecified osteoporosis type M81.0 Osteoporosis type: unspecified Presence of current pathological fracture: without current pathological fracture Seropositive rheumatoid arthritis M05.9 Migraine without status migrainosus, not intractable, unspecified migraine type G43.909 Migraine type: unspecified Status migrainosus presence: without status migrainosus Intractability: not intractable Impaired fasting glucose R73.01 Vitamin D deficiency E55.9 Anxiety F41.9 Assessment & Plan Assessment & Plan (1) Pure hypercholesterolemia: Code(s): E78.00 - Pure hypercholesterolemia, unspecified Category: Medical Plan: Results of her labs done last week reviewed and discussed with patient - have advised patient that her cholesterol levels are normal but she should try to get them improved further ideally Reinforced low cholesterol diet Continue Atorvastatin 40 mg QD for now Will recheck her labs and fasting lipids in 6 months for follow up (2) COPD (chronic obstructive pulmonary disease): Code(s): J44.9 - Chronic obstructive pulmonary disease, unspecified Category: Medical Qualifiers: COPD type: unspecified COPD Qualified Code(s): J44.9 - Chronic obstructive pulmonary disease, unspecified Plan: Continue Anoro Ellipta 62.5-25 mcg 1 inhalation QD and Albuterol HFA 1 to 2 inhalations 4 times a day as needed Chest CT done in July 2023 revealed (+) mild atelectasis with no acute intrathoracic pathology PFTs done on 06/05/2023 revealed (+) mild obstructive airway disease with some reversibility after bronchodilator therapy; PFTs done back in 2013 showed similar results - very mild obstructive airway disorder but with NO reversibility after bronchodilator therapy Echocardiogram done in May 2023 came out normal (3) Osteoporosis: Comment: DEXA 09/2022 T-score -2.5 left femoral neck Alendronate 04/2023 caused headaches Reclast 07/2023 Code(s): M81.0 - Age-related osteoporosis without current pathological fracture Category: Medical Qualifiers: Osteoporosis type: unspecified Presence of current pathological fracture: without current pathological fracture Qualified Code(s): M81.0 - Age-related osteoporosis without current pathological fracture Plan: Patient is encouraged again to continue to stay active and exercise regularly; reinforced fall precautions Continue Vitamin D 2000 units once a week and daily Calcium supplements regularly Her repeat BMD in September 2022 revealed (+) significant decline from previous BMD in 2017 - she had a 10.3% BMD decline in the AP spine from previous and a 6.2% decline in her left femur from previous; her lowest T score is at -2.5 in the femoral neck and the lumbar spine Continue Reclast infusion 5 mg IV yearly - states that she just received her Reclast dose for this year yesterday (she could not tolerate Alendronate in the past) She will be eligible for repeat BMD in a couple of months and advised patient that rheumatology will likely order her repeat BMD at her next follow up appointment with them in a couple of months (4) Seropositive rheumatoid arthritis: Comment: +RF-ve [employer] dx around 2018 Arava 12/2019- 11/2020 unclear why stopped. Oral and subcutaneous methotrexate- GI upset and headaches Humira -07/2021 ineffective Enbrel - 07/2021- present - ineffective Orencia 07/2023 effective interrupted 10/2022- 11/2022 due to ins change resulting in a flare. restarted 12/2022 effective Code(s): M05.9 - Rheumatoid arthritis with rheumatoid factor, unspecified Category: Medical Plan: She appears to be doing well so far on Orencia 125 mg once a week - states that her joint pains have been well-controlled for a while now She has failed or could not tolerate multiple meds in the past, including Enbrel. MTx, Arava and Humira [place] [facility] [place] scheduled (5) Migraine: Code(s): G43.909 - Migraine, unspecified, not intractable, without status migrainosus Category: Medical Qualifiers: Migraine type: unspecified Status migrainosus presence: without status migrainosus Intractability: not intractable Qualified Code(s): G43.909 - Migraine, unspecified, not intractable, without status migrainosus Plan: Reinforced avoidance of migraine triggers Continue Nadolol 40 mg Q HS for migraine headache prophylaxis She takes Sumatriptan 50 mg PRN for her migraine headaches but finds that it does not seem to be helping as well as she would still have to avoid bright lights and stay in her room for hours (even with Rx) when her headaches occur Will try switching her to Ubrelvy 50 mg PRN - advised that its dosing is similar to Sumatriptan and she is advised to reach out to us and let us know if her insurance will not cover the Rx (6) Impaired fasting glucose: Code(s): R73.01 - Impaired fasting glucose Category: Medical Plan: Her FBS was normal at 96 mg/dl on her labs done last month; her HgbA1c was normal at 5.5% when previously checked Reinforced low calorie/low carb diet; exercise as tolerated (7) Vitamin D deficiency: Code(s): E55.9 - Vitamin D deficiency, unspecified Category: Medical Plan: Corrected Continue Vitamin D3 2000 units once a week Will recheck her Vitamin D level in 6 months for follow up (8) Anxiety: Code(s): F41.9 - Anxiety disorder, unspecified Category: Medical Plan: Continue Lorazepam 1 mg Q HS PRN and Paroxetine 40 mg QD Follow up with psychiatry as scheduled Plan To return in 6 months for her next annual physical examination Orders: Orders UA CC w/rflx Micro + Cult 6 Months R30.0 - Dysuria, Z00.00 - Encounter for general adult medical examination without abnormal findings Vitamin D 25-OH Total 6 Months E55.9 - Vitamin D deficiency, unspecified, Z00.00 - Encounter for general adult medical examination without abnormal findings Complete Blood Count Auto Diff 6 Months D64.9 - Anemia, unspecified Lipid Panel 6 Months E78.00 - Pure hypercholesterolemia, unspecified Comprehensive [place]. Panel Fast 6 Months E78.00 - Pure hypercholesterolemia, unspecified TSH reflex Free T4 6 Months E78.00 - Pure hypercholesterolemia, unspecified, Z00.00 - Encounter for general adult medical examination without abnormal findings Hemoglobin A1c 6 Months R73.01 - Impaired fasting glucose Medications: New ubrogepant (Ubrelvy) Take NEEDED for migraine headaches. May take a second dose after 2 hours if needed but no more than 2 tablets in 24 hours 50 mg PO ONCE 30 days PRN 30 tabs 3RF migraine headache
== END 2024-09-10 16:57 | disposition home or self-care (01) ==
PROVIDERS: PCP Internal Medicine; Visit Provider Internal Medicine
DX: E78.00 Pure hypercholesterolemia, unspecified (principal); J44.9 Chronic obstructive pulmonary disease, unspecified; M81.0 Age-related osteoporosis without current pathological fracture; M05.9 Rheumatoid arthritis with rheumatoid factor, unspecified; G43.909 Migraine, unspecified, not intractable, without status migrainosus; R73.01 Impaired fasting glucose; E55.9 Vitamin D deficiency, unspecified; F41.9 Anxiety disorder, unspecified

== ENCOUNTER 2024-11-01 15:50 | Outpatient (REF) | payer OTHER, SELFPAY ==
[2024-11-01 16:04] LABS: MANUAL DIFF FLAG NO
[2024-11-01 16:18] LABS: Basophils Percent Auto 0.4 % (0-2); Eosinophils Absolute Auto 0.1 X10*3/uL (0.0-0.4); Hematocrit 35.6 % (37.0-47.0); Hemoglobin 12.2 g/dl (12.0-16.0); Imm Gran Abs Auto 0.03 X10*3/uL (0.00-0.03); Imm Gran Pct Auto 0.3 % (0.0-0.4); Lymphocytes Absolute Auto 2.8 X10*3/uL (1.2-4.9); Lymphocytes Percent Auto 29.6 % (20-40); Mean Corpuscular HGB Conc 34.3 g/dl (31.0-35.0); Mean Corpuscular Hemoglobin 31.4 pg (27.0-33.0); Mean Corpuscular Volume 91.8 fL (80.0-98.0); Mean Platelet Volume 9.9 fL (9.4-12.3); Monocytes Absolute Auto 0.7 X10*3/uL (0.1-1.2); Monocytes Percent Auto 6.9 % (2-11); Neutrophils Absolute Auto 5.9 x10*3/uL (2.0-8.3); Neutrophils Percent Auto 61.8 % (45-73); Platelet Count 290 X10*3/uL (160-400); Red Blood Count 3.88 X10*6/uL (4.20-5.50); Red Cell Distribution Width 12.8 % (11.0-16.0); White Blood Count 9.5 X10*3/uL (4.8-10.8)
[2024-11-01 17:02] LABS: Erythrocyte Sedimentation Rate 18 MM/HR (0-20)
[2024-11-01 19:40] LABS: Alanine Aminotransferase 18 U/L (0-31); Albumin Level 4.3 g/dL (3.5-5.0); Anion Gap 12 (12-20); Aspartate Amino Transferase 24 U/L (5-31); Bilirubin Total 0.2 mg/dL (0.0-1.0); Blood Urea Nitrogen 14 mg/dL (9-16); C Reactive Protein 0.24 mg/dL (< or = 0.50); Calcium 9.3 mg/dL (8.4-10.2); Carbon Dioxide 24 mmol/L (22-29); Chloride 111 mmol/L (96-108); Estimated Glomerular Filt Rate 58; Glucose Random 100 mg/dL (60-115); Potassium 4.3 mmol/L (3.3-5.1); Sodium 143 mmol/L (135-145); Total Protein 7.4 g/dL (6.5-8.0)
[2024-11-01 20:16] LABS: Alkaline Phosphatase 69 U/L (39-117)
[2024-11-02 04:47] LABS: HBS Num1 30.37 mIU/mL (0-7.99); HBc Num1 0.06 S/CO (0.00-0.79); HBsAGNum1 0.38 S/CO (0.00-0.99); Hepatitis A Antibody IgM 0.23 Index (0-0.79); Hepatitis B Core Antibody Nonreactive (Nonreactive); Hepatitis B Surface Antigen Negative (Negative); ~HepC Num1 0.13 S/CO (0.00-0.79); ~Hepatitis A Antibody IgM Nonreactive (Nonreactive); ~Hepatitis B Surface Antibody REACTIVE (Nonreactive); ~Hepatitis C Antibody Nonreactive (Nonreactive)
[2024-11-04 10:22] LABS: TS Negative Control Passed; TS Panel A 0; TS Panel B 0; TS Positive Control Passed; TSpotTB Negative (Negative)
[2024-11-05 18:24] LABS: Vitamin D 25-OH, D2 <4 ng/mL; Vitamin D 25-OH, D3 43 ng/mL; Vitamin D 25-OH, Total 43 ng/mL (30-100)
== END 2024-11-01 15:51 | disposition home or self-care (01) ==
LOC: HO.LAB 15:50
PROVIDERS: PCP Internal Medicine; Visit Provider Student in an Organized Health Care Education/Training Program
DX: Z11.59 Encounter for screening for other viral diseases (principal); M05.9 Rheumatoid arthritis with rheumatoid factor, unspecified; Z11.7 Encounter for testing for latent tuberculosis infection; E55.9 Vitamin D deficiency, unspecified
CPT/HCPCS: 36415; 80053; 82306; 85025; 85652; 86140; 86481; 86704; 86706; 86709; 86803; 87340

== ENCOUNTER 2024-11-10 15:32 | Outpatient (REF) | payer OTHER, SELFPAY | END 2024-11-10 15:33 | disposition home or self-care (01) | LOC: HO.MAMMO 15:32 | PROVIDERS: PCP Internal Medicine; Visit Provider Internal Medicine | DX: Z12.31 Encounter for screening mammogram for malignant neoplasm of breast (principal) | CPT/HCPCS: 77063; 77067 ==

== ENCOUNTER → 2024-11-10 15:45 | Outpatient (BNV) | payer OTHER, SELFPAY | PROVIDERS: PCP Internal Medicine; Visit Provider Internal Medicine | DX: Z12.31 Encounter for screening mammogram for malignant neoplasm of breast (principal) | CPT/HCPCS: 77063; 77067 ==

== ENCOUNTER 2025-01-14 15:38 | Outpatient (AMB) | payer OTHER, SELFPAY ==
[2025-01-14 15:45] VITALS: BP 112/72; PULSE 66; O2SAT 97; BMI 24.7
--- NOTE | 2025-01-14 15:45 | A.OFFVIS_ITS ---
Vital Signs 01/14/25 15:45 Height 5 ft 3 in Weight 139 lb 5.314 oz BMI 24.7 BP 112/72 Blood Pressure Location Lt brachial Position Sitting Pulse 66 Pulse Source Pulse Oximeter Pulse Oximetry (%) 97 Oxygen Delivery Method Room Air Intake Visit Reasons: RA Intake Note: Patient presents for follow up on RA and lab review. She was last seen in the office on 05/06/[address] Antoine. Allergies acetaminophen [From VICODIN] Allergy (Intermediate, Verified 01/14/25 15:48) ITCHING hydrocodone [From VICODIN] Allergy (Intermediate, Verified 01/14/25 15:48) ITCHING alendronate sodium Adverse Reaction (Intermediate, Verified 01/14/25 15:48) Headache tylenol Allergy (Intermediate, Uncoded 01/14/25 15:48) Itching vicodin Allergy (Intermediate, Uncoded 01/14/25 15:48) Itching Medication List - Last Reconciled 01/14/25 by Hermelinda Saenz MD atorvastatin 40 mg PO DAILY 90 days cholecalciferol (vitamin D3) 50,000 units PO QWEEK latanoprost 0.005% 1 drp ophthalmic (eye) BEDTIME lorazepam 1 mg PO BEDTIME PRN 90 days nadolol 40 mg (2 x 20 mg) PO DAILY 90 days Orencia ClickJect (abatacept) 125 mg subcut QWEEK NS paroxetine HCl 40 mg PO DAILY 90 days ubrogepant (Ubrelvy) 50 mg PO ONCE PRN 30 days zoledronic [id number] 5 mg/100 mL (Reclast) ea IV .once a year HPI Comments Details: Patient is a 54-year-old female with hyperlipidemia, depression, COPD, osteoporosis and seropositive rheumatoid arthritis here today for follow up Interval History: Patient last seen 05/06/[address] Antoine. At that time she was following up for her rheumatoid arthritis on Orencia weekly. Noted intermittent pains involving her right 5th MCP but no swelling or recent infections. Exam was normal without any evidence of synovitis and inflammatory markers were normal. No changes made to medication. Today she is here for follow up No changes Continues to have remission of her rheumatoid arthritis No falls or fractures Last dose of Reclast 07/2024 went well without any side effects Rheumatologic History: Seropositive rheumatoid arthritis +RF-ve CCP dx around 2018 Arava 12/2019- 11/2020 unclear why stopped. Oral and subcutaneous methotrexate- GI upset and headaches Humira -07/2021 ineffective Enbrel - 07/2021- present - ineffective Orencia 07/2023 effective interrupted 10/2022- 11/2022 due to ins change resulting in a flare. restarted 12/2022 effective Osteoporosis DEXA 09/2022 T-score -2.5 left femoral neck Alendronate 04/2023 caused headaches Reclast 07/2023 - Patient received her 1st dose of Reclast 07/2023. Few days later she developed abrupt onset of right upper quadrant pain. She went to the ED, right upper quadrant ultrasound was done by ED physician and it was unremarkable. Patient's pain spontaneously resolved while in the ER and she was discharged. - Had second dose 07/2024 without any problems Current Rheumatology Medication(s): Orencia 125 mg weekly IV zoledronic acid 5 mg yearly [facility] Medical History (Updated 01/14/25 @ 16:04 by Hermelinda Saenz MD) Osteoporosis Anxiety Impaired fasting glucose Migraine COPD (chronic obstructive pulmonary disease) Pure hypercholesterolemia Vitamin D deficiency Seropositive rheumatoid arthritis Surgical History (Updated 09/11/24 @ 04:02 by Kalen Jose MD) History of colonoscopy S/P anal fissurectomy Status post left foot surgery Previous section Family History Father Hyperlipidemia Paternal Grandfather Cardiovascular disease Social History Housing: Apartment Alcohol intake: current Alcohol intake frequency: holidays/special occasions only Alcohol type: wine Patient Tobacco Use Status: Former Tobacco user Tobacco use type: Cigarette Cigarettes Per Day: 20 Years Smoked: 20 e-Cigarette/Vaping Use: Never Used Second Hand Smoke Exposure: No service: No Current occupational status: employed Cognitive needs: No Hearing needs: No Vision needs: No Review of Systems Const Details: Review of Systems Constitutional: Denies fever, chills, weight loss ENT: Denies vision changes, eye pain or eye redness, dental caries, dry mouth GI: Denies nausea, vomiting, diarrhea, abdominal pain, change in BM Pulm: Denies SOB, PINEDO, hemoptysis, wheezing Cards: Denies chest pain, palpitations Skin: Denies Raynaud's, rash, nail changes, photosensitivity, MANAGER PRODUCTION: Denies headaches, weakness, paresthesias, recurrent falls MSK: as per HPI All other systems reviewed and are unremarkable except noted above Physical Exam Vital Signs: Last Vital Signs Pulse 66 01/14/25 15:45 BP 112/72 01/14/25 15:45 Pulse Ox 97 01/14/25 15:45 Oxygen Delivery Method Room Air 01/14/25 15:45 BMI result Body Mass Index 24.7 Vital signs reviewed Physical Examination CONSTITUITIONAL Patient alert and cooperative. Well appearing and in no apparent painful distress HEENT Conjunctiva and sclera clear. ?Pupils equal round and reactive to light. ?No lymphadenopathy. ? CHEST/RESPIRATORY SYSTEM Normal respiratory effort and able to speak in complete sentences. ?Clear to auscultation bilaterally. ?No crackles, rales, rhonchi, wheezes heard. CARDIAC SYSTEM Regular rate and rhythm. ?S1 and S2 heard no murmurs. 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 No deformities noted. ?No synovitis noted to the MCPs, PIPs or DIPs. ?No tenderness to palpation of these joints. Wrists: ?Full range of motion at the wrists without pain. ?No tenderness to palpation or synovitis noted to the wrists. Elbows: Full range of motion without pain. No tenderness, weakness, swelling, increased warmth or erythema. Shoulders: Full range of motion without pain. No tenderness, weakness, swelling, increased warmth or erythema. Hips: Full range of motion without pain. Hip bursa: No tenderness to palpation Knees: ?Full range of motion. ?No tenderness, swelling, increased warmth or erythema.?No effusion or crepitations Ankles: Full range of motion. ?No tenderness, swelling, increased warmth or erythema.? Feet: ?Negative squeeze test. ?No tenderness to palpation or swelling of the MTPs. Tender points:?No tenderness to palpation of the bilateral trapezius, supraspinatus, greater trochanters, anterior costochondral junctions, bilateral gluteal areas, bilateral suboccipital muscle insertions SKIN Skin intact without rashes. Results Reviewed Results Reviewed: Laboratory Tests 11/01/24 16:03 WBC 9.5 RBC 3.88 L Hgb 12.2 Hct 35.6 L Plt Count 290 ESR 18 Sodium 143 Potassium 4.3 Chloride 111 H Carbon Dioxide 24 BUN 14 Creatinine 1.00 Calcium 9.3 Total Bilirubin 0.2 AST 24 ALT 18 Alkaline Phosphatase 69 C-Reactive Protein 0.24 25-OH Vitamin D Total 43 Immunology labs 08/07/18 10/18/20 09:35 06:30 Rheumatoid Factor 30.6 H Cycl Citrul Peptide IgG <16 SS-A/Ro Antibody <1.0 NEG SS-B/La Antibody <1.0 NEG Infectious serologies 11/01/24 16:03 Hepatitis A IgM Ab Nonreactive Hep Bs Antigen Negative Hep Bs Antibody REACTIVE Hep B Core Total Ab Nonreactive Hepatitis C Ab (EIA) Nonreactive TB Test (T-Spot) Com Negative DEXA 09/2022 FINDINGS: AP SPINE L1-L4: Current: BMD 0.910 g/cm2, Z-score -1.5, T-score -2.2, osteopenia, 10.3% decrease from previous, 11.9% decrease from baseline (<5% change is not significant). Prior: BMD 1.014 g/cm2. Baseline: BMD 1.033 g/cm2. LEFT FEMUR, NECK: Current: BMD 0.692 g/cm2, Z-score -1.5, T-score -2.5, osteoporosis. Prior: BMD 0.778 g/cm2. Baseline: BMD 0.801 g/cm2. LEFT FEMUR, TOTAL: Current: BMD 0.697 g/cm2, Z-score -1.8, T-score -2.5, osteoporosis, 6.2% decrease from previous, 7.4% decrease from baseline (<5% change is not significant). Prior: BMD 0.743 g/cm2. Baseline: BMD 0.753 g/cm2. 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 Oral and subcutaneous methotrexate- GI upset and headaches Humira -07/2021 ineffective Enbrel - 07/2021- present - ineffective Orencia 07/2023 effective interrupted 10/2022- 11/2022 due to ins change resulting in a flare. restarted 12/2022 effective Code(s): M05.9 - Rheumatoid arthritis with rheumatoid factor, unspecified Category: Medical Plan: #Seropositive RA Patient is a 54-year-old female with seropositive rheumatoid arthritis currently in remission Plan - Continue Orencia 125mg SC weekly - RTC 4 months - Labs before visit: CBC, CMP, ESR, CRP - Can consider increasing to 6 months if she is stable at the next visit (2) Osteoporosis: Comment: DEXA 09/2022: AP Spine -2.2, Left femur neck -2.5, Left femur total -2.5 Alendronate 04/2023 caused headaches Reclast 07/2023 Code(s): M81.0 - Age-related osteoporosis without current pathological fracture Category: Medical Qualifiers: Osteoporosis type: unspecified Presence of current pathological fracture: without current pathological fracture Qualified Code(s): M81.0 - Age- related osteoporosis without current pathological fracture Plan: #Osteoporosis Patient with osteoporosis without any falls or fractures. Currently on Reclast and tolerating same. Due for DEXA. 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 Plan: #Long-term Use of Abatacept Discussed with the patient the benefits and risks of Abatacept for the ma nagement of the rheumatic condition Benefits include reduce pain, maintenance of remission and reduction of flares as well as ?progression of the disease Risks include injection sites/infusion reactions, serious infections (such as bacterial infections, opportunistic infections), malignancy Recommended rotating injection sites, and holding medication during and for up to 1 week after resolution of a febrile illness or open skin wound (4) Encounter for ongoing osteoporosis therapy, 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: Code(s): M81.0 - Age-related osteoporosis without current pathological fracture; 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 Plan: #Long-term Use of Bisphosphonates Risks and benefits of 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 in the management of osteoporosis Benefits include improved bone density, decreased fracture risk Risks include atypical femoral fractures, GI upset, esophageal strictures Contraindicated in patients with a creatinine clearance < 30 to 35 ml/min Keep vitamin-D at least 35 ng/mL Plan I spent 32 minutes reviewing the record and labs, taking a history, examining the patient, discussing the treatment plan, ordering diagnostic work up and documenting in the medical record2 Orders: Orders Complete Blood Count Auto Diff 4 Months M05.9 - Rheumatoid arthritis with rheumatoid factor, unspecified Comprehensive Met. Panel 4 Months M05.9 - Rheumatoid arthritis with rheumatoid factor, unspecified C Reactive Protein 4 Months M05.9 - Rheumatoid arthritis with rheumatoid factor, unspecified XR DEXA axial skeleton Today M81.0 - Age-related osteoporosis without current pathological fracture Erythrocyte Sedimentation Rate 4 Months M05.9 - Rheumatoid arthritis with rheumatoid factor, unspecified Vitamin D 25-OH (D2 and D3) 4 Months E55.9 - Vitamin D deficiency, unspecified Medications: Refilled Orencia ClickJect (abatacept) 125 mg subcut QWEEK 4 mL 4RF NS M05.9 - Rheuma toid arthritis with rheumatoid factor, unspecified Coding Level of Care Code Est Pt Level 4 (08025) Complex EM visit Add On [id number] Diagnoses Seropositive rheumatoid arthritis M05.9 Osteoporosis without current pathological fracture, unspecified osteoporosis type M81.0 Osteoporosis type: unspecified Presence of current pathological fracture: without current pathological fracture On abatacept therapy Z79.899 Encounter for ongoing osteoporosis therapy, 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 M81.0; Z79.83
== END 2025-01-14 16:15 | disposition home or self-care (01) ==
LOC: HO.RHE 15:38
PROVIDERS: PCP Internal Medicine; Visit Provider Student in an Organized Health Care Education/Training Program
DX: M05.79 Rheumatoid arthritis with rheumatoid factor of multiple sites without organ or systems involvement (principal); M81.0 Age-related osteoporosis without current pathological fracture; Z79.899 Other long term (current) drug therapy; Z79.83 Long term (current) use of 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
CPT/HCPCS: 99214; G2211

== ENCOUNTER 2025-04-19 16:39 | Outpatient (AMB) | payer OTHER, SELFPAY ==
[2025-04-19 16:41] VITALS: BP 104/80; PULSE 77; O2SAT 97; BMI 23.9
--- NOTE | 2025-04-19 16:41 | MHC.PC.OV ---
Vital Signs 04/19/25 16:41 Height 5 ft 3 in Weight 135 lb BMI 23.9 BP 104/80 Blood Pressure Location Lt brachial Position Sitting Pulse 77 Pulse Source Pulse Oximeter Pulse Oximetry (%) 97 Oxygen Delivery Method Room Air Intake Visit Reasons: Physical Animal Sticker Required: No Accompanied by: Self / Same As Patient Allergies acetaminophen (From VICODIN) Allergy (Intermediate, Verified 04/19/25 17:03) ITCHING hydrocodone (From VICODIN) Allergy (Intermediate, Verified 04/19/25 17:03) ITCHING alendronate sodium Adverse Reaction (Intermediate, Verified 04/19/25 17:03) Headache tylenol Allergy (Intermediate, Uncoded 04/19/25 17:03) Itching vicodin Allergy (Intermediate, Uncoded 04/19/25 17:03) Itching Medication List - Last Reconciled 04/19/25 by Kalen Jose MD atorvastatin 40 mg PO DAILY 90 days cholecalciferol (vitamin D3) 50,000 units PO QWEEK latanoprost 0.005% 1 drp ophthalmic (eye) BEDTIME lorazepam 1 mg PO BEDTIME PRN 90 days nadolol 40 mg (2 x 20 mg) PO DAILY 90 days Orencia ClickJect (abatacept) 125 mg subcut QWEEK NS paroxetine HCl 40 mg PO DAILY 90 days ubrogepant (Ubrelvy) 50 mg PO ONCE PRN 30 days zoledronic dgdk-vvpmrnyg-jnjzt 5 mg/100 mL (Reclast) ea IV .once a year Tobacco use date assessed: 04/19/25 Dental Screening Dental Screen Date: 04/19/25 Did you have a dental visit in the last 12 months?: Yes Did you have a dental problem in the last 6 months where you did not have access to dental care?: No Was dental information given to patient?: Patient has dentist HPI Physical HPI Details Patient comes in today for her annual physical examination States that she feels okay She denies any headaches or dizziness Denies any chest pains, no SOB although she has been experiencing on and off mild chest congestion and has had a recurrent, deep cough for the past couple of weeks Is not sure if her recent chest symptoms are due to allergies or not States that her cough is mostly non-productive No nausea/vomiting, no abdominal pain No change in bowel habits noted Denies any acute urinary symptoms States that she just got back from vacation and has not been able to get her follow up labs done yet She will be due for her repeat colonoscopy in a couple of years in 2026 Her annual mammogram was last done in 10/2024 She has not had her yearly pap smear and gynecology exam done in a few years - she goes to see her vocational placement specialist at [facility] and has been advised to reach out to them to schedule her appt [facility] Medical History Osteoporosis Anxiety Impaired fasting glucose Migraine COPD (chronic obstructive pulmonary disease) Pure hypercholesterolemia Vitamin D deficiency Seropositive rheumatoid arthritis Surgical History History of colonoscopy S/P anal fissurectomy Status post left foot surgery Previous section Family History Father Hyperlipidemia Paternal Grandfather Cardiovascular disease Social History Housing: Apartment Alcohol intake: current Alcohol intake frequency: holidays/special occasions only Alcohol type: wine Patient Tobacco Use Status: Former Tobacco user Tobacco use type: Cigarette Cigarettes Per Day: 20 Years Smoked: 20 e-Cigarette/Vaping Use: Never Used Second Hand Smoke Exposure: No service: No Current occupational status: employed Cognitive needs: No Hearing needs: No Vision needs: No Questionnaire PHQ-9 Over the last 2 weeks, how often have you been bothered by any of the following problems? 1. Little interest or pleasure in doing things: not at all 2. Feeling down, depressed, or hopeless: not at all 3. Trouble falling or staying asleep, or sleeping too much: not at all 4. Feeling tired or having little energy: not at all 5. Poor appetite or overeating: not at all 6. Feeling bad about yourself - or that you are a failure or have let yourself or your family down: not at all 7. Trouble concentrating on things, such as reading the newspaper or watching television: not at all 8. Moving or speaking so slowly that other people could have noticed. Or the opposite - being so fidgety or restless that you have been moving around a lot more than usual: not at all 9. Thoughts that you would be better off or of hurting yourself in some way: not at all Total score: 0 Depression Screening Interpretation: Negative Depression Screening Done: Yes 57426 - PHQ-9 Billing: Yes Source: Developed by Drs. Timi Linares, Ninfa Gusman, Malcolm Carey and colleagues, with an educational tim from [employer]. Thrive Questionnaire Date Thrive assessed: 04/19/25 I am a: Patient What is your living situation today?: I have a steady place to live Within the past 12 months, did the food you bought not last and you didn't have the money to get more?: Never true Within the past 12 months, did you worry whether your food would run out before you got money to buy more?: Never true Do you have trouble paying for medicines?: No Do you have trouble getting transportation to medical appointments?: No Do you have trouble paying your heating and electricity bill?: No Do you have trouble taking care of your child, family member or friend?: No Do you have trouble with day-to-day activities such as bathing, preparing meals, shopping, managing finances, etc.?: No Are you currently unemployed and looking for a job?: No Are you interested in more education?: No Please select the resources that you would like help with: None Currently or been in a relationship where the following occur: No concerns reported THRIVE Score: 0 AUDIT C Alcohol Use Questionnaire (AUDIT-C) 1. How often do you have a drink containing alcohol?: 2-4 times a month 2. How many drinks containing alcohol do you have on a typical day when you are drinking?: 1 or 2 3. How often do you have six or more drinks on one occasion?: Never Total Score: 2 Score Reviewed/Action Taken: Yes JUANITA-7 AMB Questionnaire JUANITA-7 Date JUANITA - 7 assessed: 04/19/25 Feeling nervous, anxious, or on edge: 0 = Not at all Not being able to stop or control worryin = Not at all Worrying too much about different things: 0 = Not at all Trouble relaxin = Not at all Being so restless that it is hard to sit still: 0 = Not at all Becoming easily annoyed or irritable: 1 = Several days Feeling afraid as if something awful might happen: 0 = Not at all Total JUANITA-7 score (0-4 normal; 5-9 mild; 10-14 moderate; 15-21 severe): 1 Source: Developed by Drs. Timi Linares, Ninfa Gusman, Malcolm Carey and colleagues, with an educational tim from [employer]. Review of Systems Const Denies chills, Denies fatigue, Denies fever(s), Denies headache(s) and Denies malaise Eyes Denies blurry vision, Denies change in vision, Denies irritation and Denies itchy eyes ENT Denies dysphagia, Denies dizziness, Denies otalgia, Denies headache(s), Denies nasal congestion, Denies neck pain, Denies odynophagia, Denies sinus pain and Denies sore throat Card Denies chest pain, Denies rapid heart rate, Denies irregular heart rhythm, Denies palpitations and Denies dyspnea Resp Reports chest congestion (mild, on and off - over the past couple of weeks), Reports cough (on and off over the past couple of weeks, mostly non-productive), Denies dyspnea and Denies wheezing GI Denies abdominal pain, Denies bloating, Denies constipation, Denies dysphagia, Denies heartburn, Denies diarrhea, Denies nausea, Denies odynophagia and Denies vomiting Denies hematuria, Denies urinary frequency, Denies dysuria, Denies urinary incontinence and Denies urinary urgency Musc Denies back pain, Denies arthralgias, Denies joint swelling, Denies muscle weakness and Denies neck pain Skin/Breast Denies breast pain, Denies breast mass, Denies change in pigmentation, Denies lesions, Denies rash and Denies unusual bruising Neuro Denies dizziness, Denies headache(s) and Denies paresthesias Psych Denies anxiety and Denies depression Endo Denies fatigue and Denies palpitations Mike/Lymph Denies easy bruising Aller/Immun Denies itchy eyes and Denies wheezing Physical exam (Primary Care) Vital Signs: Last Vital Signs Pulse 77 04/19/25 16:41 BP 104/80 04/19/25 16:41 Pulse Ox 97 04/19/25 16:41 Oxygen Delivery Method Room Air 04/19/25 16:41 BMI result Body Mass Index 23.9 Tobacco/Smoking Status: Tobacco use Status Tobacco use date assessed 04/19/25 04/19/25 16:47 Patient Tobacco Use Status Former Tobacco user 04/19/25 16:47 Tobacco use type Cigarette 04/19/25 16:47 e-Cigarette/Vaping Use Never Used 04/19/25 16:47 PHQ-9: PHQ-9 Score PHQ-9: Total score 0 04/20/25 01:58 Depression Screening Interpretation: Negative Thrive Assessment: Date of Thrive Assessment Date Thrive assessed 04/19/25 04/19/25 16:47 Currently or been in a relationship where the following occur: No concerns reported Const General: no acute distress, alert and awake Orientation/consciousness: patient oriented x3 HENMT Head: Yes normocephalic and Yes atraumatic Ears: external ears normal, TM's normal bilaterally and EAC's normal General nose exam: No nasal discharge present Face and sinus: Yes normal facial exam and Yes sinuses nontender Teeth and gingiva: dentition normal Throat: Yes posterior oropharynx normal and Yes tonsils normal (no TP congestion) Eyes Eyelids: Yes eyelids normal Conjunctivae: conjunctivae normal Pupils: Equal, round and reactive pupils present EOM: EOMs intact bilaterally Neck Neck: Yes no lymphadenopathy and Yes supple Thyroid: Thyroid normal Resp Auscultation: no crackles, no rales, rhonchi (occasional rhonchi bilaterally) and no wheezes Cardio Rate: regular rate Rhythm: regular rhythm Heart sounds: no murmurs GI Palpation (GI): Soft to palpation, nontender and No hepatosplenomegaly present Auscultation: normal bowel sounds General: Yes no CVA tenderness Back/Spine/Pelvis Back: no CVA tenderness Thoracic/Lumbar Spine: thoracic and lumbar spine normal to inspection Skin Lesions: no lesions Rashes: no rashes Neuro General: patient oriented x3, moves all extremities, no focal motor deficits and CN's II-XI intact bilaterally Cranial nerves: Yes Equal, round and reactive pupils present Cognition (Neuro): normal cognition Gait exam (Neuro): Normal gait present Extrem General: Yes no clubbing, cyanosis or edema Coding Level of Care Code Est Pt Prev Care 40-64y(27495) Diagnoses Annual physical exam Z00.00 Pure hypercholesterolemia E78.00 Chronic obstructive pulmonary disease, unspecified COPD type J44.9 COPD type: unspecified COPD Osteoporosis without current pathological fracture, unspecified osteoporosis type M81.0 Osteoporosis type: unspecified Presence of current pathological fracture: without current pathological fracture Seropositive rheumatoid arthritis M05.9 Migraine without status migrainosus, not intractable, unspecified migraine type G43.909 Intractability: not intractable Migraine type: unspecified Status migrainosus presence: without status migrainosus Impaired fasting glucose R73.01 Vitamin D deficiency E55.9 Anxiety F41.9 Additional Codes PHQ-9 - 84768 - PHQ-9 Billing: Yes ([id number]) Assessment & Plan Assessment & Plan (1) Annual physical exam: Code(s): Z00.00 - Encounter for general adult medical examination without abnormal findings Category: Medical Plan: Patient is instructed to get her previously ordered labs done SUKHI to complete her physical exam She will be due for her repeat colonoscopy in a couple of years in 2026 Her annual mammogram was last done in 10/2024 She has not had her yearly pap smear and gynecology exam done in a few years - she goes to see her vocational placement specialist at [facility] and has been advised to reach out to them to schedule her appt SUKHI (2) Pure hypercholesterolemia: Code(s): E78.00 - Pure hypercholesterolemia, unspecified Category: Medical Plan: She was not able to get her follow up labs done yet - will try to get these done SUKHI Reinforced low cholesterol diet Continue Atorvastatin 40 mg QD for now Will recheck her labs and fasting lipids in 6 months for follow up (3) COPD (chronic obstructive pulmonary disease): Code(s): J44.9 - Chronic obstructive pulmonary disease, unspecified Category: Medical Qualifiers: COPD type: unspecified COPD Qualified Code(s): J44.9 - Chronic obstructive pulmonary disease, unspecified Plan: Chest CT done in July 2023 revealed (+) mild atelectasis with no acute intrathoracic pathology PFTs done on 06/05/2023 revealed (+) mild obstructive airway disease with some reversibility after bronchodilator therapy; PFTs done back in 2013 showed similar results - very mild obstructive airway disorder but with NO reversibility after bronchodilator therapy Echocardiogram done in May 2023 came out normal Patient states that she has not used her inhalers in a while but has again been experiencing some chest congestion and tightness lately, which may be due to her COPD being triggered by her recent allergy symptoms Will start her back on Anoro Ellipta 62.5-25 mcg 1 inhalation QD and Albuterol HFA 1 to 2 inhalations 4 times a day as needed - Rx refills sent to pharmacy (4) Osteoporosis: Comment: DEXA 09/2022: AP Spine -2.2, Left femur neck -2.5, Left femur total -2.5 Alendronate 04/2023 caused headaches Reclast 07/2023 Code(s): M81.0 - Age-related osteoporosis without current pathological fracture Category: Medical Qualifiers: Osteoporosis type: unspecified Presence of current pathological fracture: without current pathological fracture Qualified Code(s): M81.0 - Age-related osteoporosis without current pathological fracture Plan: Patient is encouraged again to continue to stay active and exercise regularly; reinforced fall precautions Continue Vitamin D 2000 units once a week and daily Calcium supplements regularly Her repeat BMD in September 2022 revealed (+) significant decline from previous BMD in 2017 - she had a 10.3% BMD decline in the AP spine from previous and a 6.2% decline in her left femur from previous; her lowest T score is at -2.5 in the femoral neck and the lumbar spine Continue Reclast infusion 5 mg IV yearly - she has received 2 doses of Reclast already so far (last dose in July 2024) She was not able to tolerate Alendronate in the past She will be eligible for repeat BMD in a few months (later this year) and patient is advised that rheumatology will likely order her repeat BMD at her next follow up appointment with them in a couple of months (5) Seropositive rheumatoid arthritis: Comment: +RF-ve [employer] dx around 2018 Arava 12/2019- 11/2020 unclear why stopped. Oral and subcutaneous methotrexate- GI upset and headaches Humira -07/2021 ineffective Enbrel - 07/2021- present - ineffective Orencia 07/2023 effective interrupted 10/2022- 11/2022 due to ins change resulting in a flare. restarted 12/2022 effective Code(s): M05.9 - Rheumatoid arthritis with rheumatoid factor, unspecified Category: Medical Plan: She appears to be doing well so far on Orencia 125 mg once a week - states that her joint pains have been well-controlled for a while now She has failed or could not tolerate multiple meds in the past, including Enbrel, MTx, Arava and Humira Follow up with [facility] [place] Rheumatology as scheduled (6) Migraine: Code(s): G43.909 - Migraine, unspecified, not intractable, without status migrainosus Category: Medical Qualifiers: Intractability: not intractable Migraine type: unspecified Status migrainosus presence: without status migrainosus Qualified Code(s): G43.909 - Migraine, unspecified, not intractable, without status migrainosus Plan: Reinforced avoidance of migraine triggers Continue Nadolol 40 mg Q HS for migraine headache prophylaxis She takes Sumatriptan 50 mg PRN for her migraine headaches but finds that it does not seem to be helping as well as she would still have to avoid bright lights and stay in her room for hours (even with Rx) when her headaches occur She was switched over to Ubrelvy 50 mg PRN at her last visit (7) Impaired fasting glucose: Code(s): R73.01 - Impaired fasting glucose Category: Medical Plan: Her FBS was normal at 96 mg/dl on her labs done previously; her HgbA1c was also normal at 5.5% when previously checked Reinforced low calorie/low carb diet; exercise as tolerated (8) Vitamin D deficiency: Code(s): E55.9 - Vitamin D deficiency, unspecified Category: Medical Plan: Continue Vitamin D3 2000 units once a week (9) Anxiety: Code(s): F41.9 - Anxiety disorder, unspecified Category: Medical Plan: Continue Lorazepam 1 mg Q HS PRN and Paroxetine 40 mg QD Follow up with psychiatry as scheduled Plan Follow up in 6 months Orders: Orders Lipid Panel 6 Months E78.00 - Pure hypercholesterolemia, unspecified TSH reflex Free T4 6 Months E78.00 - Pure hypercholesterolemia, unspecified UA CC w/rflx Micro + Cult 6 Months R30.0 - Dysuria Vitamin D 25-OH Total 6 Months E55.9 - Vitamin D deficiency, unspecified, M81.0 - Age-related osteoporosis without current pathological fracture Hemoglobin A1c 6 Months R73.01 - Impaired fasting glucose Complete Blood Count Auto Diff 6 Months D64.9 - Anemia, unspecified Comprehensive [place]. Panel Fast 6 Months E78.00 - Pure hypercholesterolemia, unspecified Medications: New albuterol sulfate 90 mcg/actuation (Ventolin HFA) 2 puffs inhalation Q6H PRN 8.5 grams 5RF shortness of breath or wheezing 30 days Refilled umeclidinium-vilanterol 62.5-25 mcg/actuation (Anoro Ellipta) 1 inh inhalation Q24H 3 inhalers 3RF 90 days
== END 2025-04-19 17:20 | disposition home or self-care (01) ==
LOC: HO.HMCH 16:40
PROVIDERS: PCP Internal Medicine; Visit Provider Internal Medicine
DX: Z00.00 Encounter for general adult medical examination without abnormal findings (principal); J44.9 Chronic obstructive pulmonary disease, unspecified; M05.9 Rheumatoid arthritis with rheumatoid factor, unspecified; E78.00 Pure hypercholesterolemia, unspecified; M81.0 Age-related osteoporosis without current pathological fracture; G43.909 Migraine, unspecified, not intractable, without status migrainosus; R73.01 Impaired fasting glucose; E55.9 Vitamin D deficiency, unspecified; F41.9 Anxiety disorder, unspecified

== ENCOUNTER → 2025-04-19 16:39 | Outpatient (BNVA) | payer OTHER, SELFPAY | PROVIDERS: PCP Internal Medicine; Visit Provider Internal Medicine | DX: Z00.00 Encounter for general adult medical examination without abnormal findings (principal); E78.00 Pure hypercholesterolemia, unspecified; J44.9 Chronic obstructive pulmonary disease, unspecified; M81.0 Age-related osteoporosis without current pathological fracture; M05.9 Rheumatoid arthritis with rheumatoid factor, unspecified; G43.909 Migraine, unspecified, not intractable, without status migrainosus; R73.01 Impaired fasting glucose; E55.9 Vitamin D deficiency, unspecified; F41.9 Anxiety disorder, unspecified | CPT/HCPCS: 96127 ==

== ENCOUNTER 2025-05-14 07:31 | Outpatient (REF) | payer OTHER, SELFPAY ==
--- OUTSIDE RECORDS SUMMARY | 2025-05-14 07:33 | XMS_ITS | Clinical Summary ---
Author Organization [facility] Address [facility] [address] [place] [id number] Phone Care Team Providers Care Client Relationship Consultant Name Role Phone Kalen Jose MD Primary Care Provider [phone] Immunizations Immunization Administration Dates Next Due COVID-19 (Pre-08/11) Pfizer Vaccine, mRNA, PF 07/30/2021,07/30/2021,11/01/2020,2019 Influenza Quadrivalent Prese rvative Free IM 08/11/2023,07/31/2022 Influenza Trivalent Preserva tive Free IM 07/07/2024 Influenza, Unspecified Formulation 06/29/2021 Tdap 06/30/2015 Social History Tobacco Use Types Packs/Day Years Used Date Smoking Tobacco: Never Assessed Education Answer Date Recorded Are you interested in more education? Not on darlene e 02/15/2023 Are you concerned about learning? Not on file 02/15/2023 No 02/15/2023 No 02/15/2023 Digital Access Answer Date Recorded No 03/16/2023 No 03/16/2023 No 03/16/2023 Reliable internet access at home? Not on file 03/16/2023 Device with a working camera? Not on file Comments Unknown Sex and Gender Information Value Date Recorded Sex Assigned at Not on file Legal Sex Female 12:26 PM EST Gender Identity Not on file Sexual Orientation Not on file Plan of Treatment Health Maintenance Due Date Last Done Comments LIPID PANEL 1969 DEPRESSION SCREENING 1981 SMOKING Hx and SMOKELESS TOBACCO SCREENING 1982 HEPATITIS C SCREENING 1987 HIV ONE-TIME SCREENING (18-65 YEARS) 1987 PAP SMEAR 1990 MAMMOGRAM 2009 COLOGUARD 2014 COLONOSCOPY 2014 COLORECTAL CANCER SCREENING 2014 FIT TEST 2014 FOBT 2014 SIGMOIDOSCOPY 2014 VIRTUAL COLONOSCOPY 2014 PNEUMOCOCCAL VACCINES (50+ years) (1 of 1 - PCV) 2019 ZOSTER VACCINES (1 of 2) 2019 COVID-19 VACCINE ( season) 2024 07/30/2021, 07/30/2021, 11/01/2020, Additional history exists Adult Td,Tdap Booster 06/30/2025 06/30/2015 HEPATITIS A VACCINES Aged Out No long er eligible based on patient's age to complete this topic HIB VACCINES Aged Out No longer eligi ble based on patient's age to complete this topic MENINGOCOCCAL VACCINES (ACWY) Aged Out No longer eligible based on patient's age to complete this topic MENINGOCOCCAL VACCINES (B) Aged Out N o longer eligible based on patient's age to complete this topic Medical Devices Not on file Insurance CIGNA PPO CIGNA PPO CIGNA PPO CIGNA PPO CIGNA PPO CIGNA PPO CIGNA PPO CIGNA PPO CIGNA PPO Care Teams Client Relationship Consultant Relationship Specialty Start Date End Date Kalen Jose MD [address] [place] [address] [place] [address] PCP - General Internal Medicine 10/08/21 Additional Source Comments The information contained in this document represents components of the legal health record. It is not the complete legal health record.[facility]
[2025-05-14 11:36] LABS: MANUAL DIFF FLAG NO
[2025-05-14 11:45] LABS: Hematocrit 39.8 % (37.0-47.0); Hemoglobin 12.8 g/dl (12.0-16.0); Imm Gran Abs Auto 0.01 X10*3/uL (0.00-0.03); Imm Gran Pct Auto 0.1 % (0.0-0.4); Lymphocytes Absolute Auto 2.3 X10*3/uL (1.2-4.9); Mean Corpuscular HGB Conc 32.2 g/dl (31.0-35.0); Mean Corpuscular Hemoglobin 30.2 pg (27.0-33.0); Mean Corpuscular Volume 93.9 fL (80.0-98.0); NRBC Abs Auto 0.000 X10*3/uL (0.0-0.012); NRBC Pct Auto 0.0 /100WBC (0.0-0.2); Platelet Count 297 X10*3/uL (160-400); Red Blood Count 4.24 X10*6/uL (4.20-5.50); White Blood Count 7.3 X10*3/uL (4.8-10.8)
[2025-05-14 11:58] LABS: Hemoglobin A1C 135.7026 umol/L; Total Hemoglobin (HGBA1C) 3428.2173 umol/L
[2025-05-14 12:31] LABS: Alanine Aminotransferase 26 U/L (0-31); Albumin Level 4.6 g/dL (3.5-5.0); Alkaline Phosphatase 62 U/L (39-117); Anion Gap 13 (12-20); Aspartate Amino Transferase 32 U/L (5-31); Blood Urea Nitrogen 10 mg/dL (9-16); Calcium 9.2 mg/dL (8.4-10.2); Carbon Dioxide 23 mmol/L (22-29); Chloride 112 mmol/L (96-108); Cholesterol 166 mg/dL (<200); Estimated Glomerular Filt Rate > 60; HDL Cholesterol 33 mg/dL (>40); Potassium 4.5 mmol/L (3.3-5.1); Sodium 143 mmol/L (135-145); Total Protein 7.2 g/dL (6.5-8.0); Triglycerides 113 mg/dL (<150)
[2025-05-14 15:14] LABS: Appearance Urine Clear; Glucose Urine UA Negative (Negative); PH 6.0 (5.0-9.0); Specific Gravity - Urine 1.010 (1.005-1.025)
[2025-05-18 17:18] LABS: Vitamin D 25-OH, D2 <4 ng/mL; Vitamin D 25-OH, D3 21 ng/mL; Vitamin D 25-OH, Total 21 ng/mL (30-100)
== END 2025-05-14 07:32 | disposition home or self-care (01) ==
LOC: HO.HMGCLDS 07:31
PROVIDERS: PCP Internal Medicine; Referring Provider Student in an Organized Health Care Education/Training Program; Visit Provider Internal Medicine
DX: Z00.00 Encounter for general adult medical examination without abnormal findings (principal); R73.01 Impaired fasting glucose; R30.0 Dysuria; M05.9 Rheumatoid arthritis with rheumatoid factor, unspecified; E55.9 Vitamin D deficiency, unspecified; E78.00 Pure hypercholesterolemia, unspecified
CPT/HCPCS: 36415; 80053; 80061; 81003; 82306; 83036; 84443; 85025; 85652; 86140

== ENCOUNTER 2025-05-17 15:52 | Outpatient (AMB) | payer OTHER, SELFPAY ==
--- NOTE | 2025-05-17 15:56 | A.OFFVIS_ITS ---
Vital Signs 05/17/25 16:01 Height 5 ft 3 in Weight 138 lb 10.732 oz BMI 24.6 BP 115/72 Blood Pressure Location Lt brachial Position Sitting Pulse 73 Pulse Source Pulse Oximeter Pulse Oximetry (%) 97 Oxygen Delivery Method Room Air Intake Visit Reasons: f/u RA Intake Note: Patient presents for RA follow up and test results. Allergies acetaminophen (From VICODIN) Allergy (Intermediate, Verified 05/17/25 16:00) ITCHING hydrocodone (From VICODIN) Allergy (Intermediate, Verified 05/17/25 16:00) ITCHING alendronate sodium Adverse Reaction (Intermediate, Verified 05/17/25 16:00) Headache tylenol Allergy (Intermediate, Uncoded 04/19/25 17:03) Itching vicodin Allergy (Intermediate, Uncoded 04/19/25 17:03) Itching HPI Comments Details: Patient is a 54-year-old female with hyperlipidemia, depression, COPD, osteoporosis and seropositive rheumatoid arthritis here today for follow up Interval History: Patient last seen 01/14/25 with me - Doing well - No new complaints - No falls or fractures - Last dose of Reclast 07/2024 went well without any side effects Today, - Rheumatologic History: Seropositive rheumatoid arthritis +RF-ve CCP dx around 2018 Arava 12/2019- 11/2020 unclear why stopped. Oral and subcutaneous methotrexate- GI upset and headaches Humira -07/2021 ineffective Enbrel - 07/2021- present - ineffective Orencia 07/2023 effective interrupted 10/2022- 11/2022 due to ins change resulting in a flare. restarted 12/2022 effective Osteoporosis DEXA 09/2022 T-score -2.5 left femoral neck Alendronate 04/2023 caused headaches Reclast 07/2023 - Patient received her 1st dose of Reclast 07/2023. Few days later she developed abrupt onset of right upper quadrant pain. She went to the ED, right upper quadrant ultrasound was done by ED physician and it was unremarkable. Patient's pain spontaneously resolved while in the ER and she was discharged. - Had second dose 07/2024 without any problems Current Rheumatology Medication(s): Orencia 125 mg weekly IV zoledronic acid 5 mg yearly [facility] Medical History Osteoporosis Anxiety Impaired fasting glucose Migraine COPD (chronic obstructive pulmonary disease) Pure hypercholesterolemia Vitamin D deficiency Seropositive rheumatoid arthritis Surgical History History of colonoscopy S/P anal fissurectomy Status post left foot surgery Previous section Family History Father Hyperlipidemia Paternal Grandfather Cardiovascular disease Social History Housing: Apartment Alcohol intake: current Alcohol intake frequency: holidays/special occasions only Alcohol type: wine Patient Tobacco Use Status: Former Tobacco user Tobacco use type: Cigarette Cigarettes Per Day: 20 Years Smoked: 20 e-Cigarette/Vaping Use: Never Used Second Hand Smoke Exposure: No service: No Current occupational status: employed Cognitive needs: No Hearing needs: No Vision needs: No Review of Systems Const Details: Review of Systems Constitutional: Denies fever, chills, weight loss ENT: Denies vision changes, eye pain or eye redness, dental caries, dry mouth GI: Denies nausea, vomiting, diarrhea, abdominal pain, change in BM Pulm: Denies SOB, PINEDO, hemoptysis, wheezing Cards: Denies chest pain, palpitations Skin: Denies Raynaud's, rash, nail changes, photosensitivity, BI MANAGER: Denies headaches, weakness, paresthesias, recurrent falls MSK: as per HPI All other systems reviewed and are unremarkable except noted above Physical Exam Exam Exam: Vital signs reviewed Physical Examination CONSTITUITIONAL Patient alert and cooperative. Well appearing and in no apparent painful distress HEENT Conjunctiva and sclera clear. No lymphadenopathy. CHEST/RESPIRATORY SYSTEM Normal respiratory effort and able to speak in complete sentences. Clear to auscultation bilaterally. No crackles, rales, rhonchi, wheezes heard. CARDIAC SYSTEM Regular rate and rhythm. S1 and S2 heard no murmurs. Radial pulses intact bilaterally MSK Hands * Right Hand: Able to make a fist. No swelling or tenderness to palpation of these joints. No deformities noted. * Left Hand: Able to make a fist. No swelling or tenderness to palpation of these joints. No deformities noted. Wrists * Right Wrist: Full ROM. 70 degrees of wrist flexion, 80 degrees of wrist extension. No swelling or TTP * Left Wrist: Full ROM. 70 degrees of wrist flexion, 80 degrees of wrist ext ension. No swelling or TTP Elbows * Right Elbow: Full ROM. No swelling or TTP. No TTP of the medial and lateral epicondyles * Left Elbow: Full ROM. No swelling or TTP. No TTP of the medial and lateral epicondyles Shoulders * Right shoulder: Full ROM. No swelling noted. No TTP of the AC joint, subacromial bursa or posterior shoulder * Left shoulder: Full ROM. No swelling noted. No TTP of the AC joint, subacromial bursa or posterior shoulder Hips * Right hip: Good ROM. No pain elicited with hip flexion/internal rotation/external rotation * Left hip: Good ROM. No pain elicited with hip flexion/internal rotation/external rotation Hip bursa: No tenderness to palpation bilaterally Knees * Right knee: Full ROM. No swelling noted. No TTP of the knee joint lie or pes anserine bursa * Left knee: Full ROM. No swelling noted. No TTP of the knee joint lie or pes anserine bursa. Ankles * Right ankle: Good ankle dorsiflexion and plantar flexion. No swelling. No TTP of the ankle joint * Left ankle: Good ankle dorsiflexion and plantar flexion. No swelling. No TTP of the ankle joint Feet * Right foot: Negative squeeze test * Left foot: Negative squeeze test Tender points? * No tenderness to palpation of the bilateral trapezius, supraspinatus, anterior costochondral junctions, bilateral suboccipital muscle insertions SKIN No rashes Vital Signs: Last Vital Signs Pulse 73 05/17/25 16:01 BP 115/72 05/17/25 16:01 Pulse Ox 97 05/17/25 16:01 Oxygen Delivery Method Room Air 05/17/25 16:01 BMI result Body Mass Index 24.6 Results Reviewed Results Reviewed: Laboratory Tests 11/01/24 05/14/25 16:03 07:48 WBC 7.3 RBC 4.24 Hgb 12.8 Hct 39.8 Plt Count 297 ESR 14 Sodium 143 Potassium 4.5 Chloride 112 H Carbon Dioxide 23 BUN 10 Creatinine 0.84 AST 24 32 H ALT 18 26 C-Reactive Protein 0.24 0.18 25-OH Vitamin D Total 43 Rheumatology Labs 08/07/18 10/18/20 09:35 06:30 Rheumatoid Factor 30.6 H Cycl Citrul Peptide IgG <16 SS-A/Ro Antibody <1.0 NEG SS-B/La Antibody <1.0 NEG DEXA 09/2022 FINDINGS: AP SPINE L1-L4: Current: BMD 0.910 g/cm2, Z-score -1.5, T-score -2.2, osteopenia, 10.3% decrease from previous, 11.9% decrease from baseline (<5% change is not significant). Prior: BMD 1.014 g/cm2. Baseline: BMD 1.033 g/cm2. LEFT FEMUR, NECK: Current: BMD 0.692 g/cm2, Z-score -1.5, T-score -2.5, osteoporosis. Prior: BMD 0.778 g/cm2. Baseline: BMD 0.801 g/cm2. LEFT FEMUR, TOTAL: Current: BMD 0.697 g/cm2, Z-score -1.8, T-score -2.5, osteoporosis, 6.2% decrease from previous, 7.4% decrease from baseline (<5% change is not significant). Prior: BMD 0.743 g/cm2. Baseline: BMD 0.753 g/cm2. Assessment & Plan Assessment & Plan (1) Seropositive rheumatoid arthritis: Comment: +RF-ve RN MOBILE dx around 2018 Arava 12/2019- 11/2020 unclear why stopped. Oral and subcutaneous methotrexate- GI upset and headaches Humira -07/2021 ineffective Enbrel - 07/2021- present - ineffective Orencia 07/2023 effective interrupted 10/2022- 11/2022 due to ins change resulting in a flare. restarted 12/2022 effective Code(s): M05.9 - Rheumatoid arthritis with rheumatoid factor, unspecified Category: Medical Plan: #Seropositive RA Patient is a 54-year-old female with seropositive rheumatoid arthritis currently in remission Plan - Continue Orencia 125mg SC weekly - RTC 6 months - Labs before visit: CBC, CMP, ESR, CRP (2) Osteoporosis: Comment: DEXA 09/2022: AP Spine -2.2, Left femur neck -2.5, Left femur total -2.5 Alendronate 04/2023 caused headaches Reclast 07/2023 Code(s): M81.0 - Age-related osteoporosis without current pathological fracture Category: Medical Qualifiers: Osteoporosis type: unspecified Presence of current pathological fracture: without current pathological fracture Qualified Code(s): M81.0 - Age- related osteoporosis without current pathological fracture Plan: #Osteoporosis Patient with osteoporosis without any falls or fractures. Currently on Reclast and tolerating same. Due for DEXA. Vitamin-D at goal Plan - Continue Vit D supplementation - IV Reclast due 07/2025 - DEXA due this year, same ordered - Check Vitamin D at next lab draw (3) On abatacept therapy: Code(s): Z79.899 - Other penitentiary (current) drug therapy Plan: #Long-term Use of Abatacept Discussed with the patient the benefits and risks of Abatacept for the management of the rheumatic condition Benefits include reduce pain, maintenance of remission and reduction of flares as well as ?progression of the disease Risks include injection sites/infusion reactions, serious infections (such as bacterial infections, opportunistic infections), malignancy Recommended rotating injection sites, and holding medication during and for up to 1 week after resolution of a febrile illness or open skin wound (4) Encounter for ongoing osteoporosis therapy, 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: Code(s): M81.0 - Age-related osteoporosis without current pathological fracture; Z79.83 - intermediate teacher (current) use of 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 Plan: #Long-term Use of Bisphosphonates Risks and benefits of 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 in the management of osteoporosis Benefits include improved bone density, decreased fracture risk Risks include atypical femoral fractures, GI upset, esophageal strictures Contraindicated in patients with a creatinine clearance < 30 to 35 ml/min Keep vitamin-D at least 35 ng/mL Plan I spent 30 minutes reviewing the record and labs, taking a history, examining the patient, discussing the treatment plan, ordering diagnostic work up and documenting in the medical record2 Coding Level of Care Code Est Pt Level 4 (79387) Complex EM visit Add On G2211 Diagnoses Seropositive rheumatoid arthritis M05.9 Osteoporosis without current pathological fracture, unspecified osteoporosis type M81.0 Osteoporosis type: unspecified Presence of current pathological fracture: without current pathological fracture On abatacept therapy Z79.899 Encounter for ongoing osteoporosis therapy, 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 M81.0; Z79.83
[2025-05-17 16:01] VITALS: BP 115/72; PULSE 73; O2SAT 97; BMI 24.6
--- OUTSIDE RECORDS SUMMARY | 2025-05-17 16:32 | XMS_ITS | Clinical Summary ---
Author Organization [facility] Address Formerly [facility] [address] [place] [phone] Phone Care Team Providers Care Elementary Principal Name Role Phone Kalen Jose MD Primary Care Provider [phone] Immunizations Immunization Administration Dates Next Due COVID-19 [...] PPO CIGNA PPO CIGNA PPO Care Teams Elementary Principal Relationship Specialty Start Date End Date Kalen Jose MD [address] [place] [address] [place] [address] PCP - General Internal Medicine 10/08/21 Additional Source Comments The information contained in this document represents components of the legal health record. It is not the complete legal health record.[facility]
== END 2025-05-17 16:18 | disposition home or self-care (01) ==
LOC: HO.RHE 15:53
PROVIDERS: PCP Internal Medicine; Visit Provider Student in an Organized Health Care Education/Training Program
DX: M05.79 Rheumatoid arthritis with rheumatoid factor of multiple sites without organ or systems involvement (principal); M81.0 Age-related osteoporosis without current pathological fracture; Z79.899 Other long term (current) drug therapy; Z79.83 Long term (current) use of 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
CPT/HCPCS: 99214; G2211

== ENCOUNTER 2025-10-01 07:48 | Outpatient (REF) | payer OTHER, SELFPAY ==
--- OUTSIDE RECORDS SUMMARY | 2025-10-01 07:52 | XMS_ITS | Clinical Summary ---
Author Organization [facility] Address [facility] [employer] [facility] [address] [place] [phone] Phone Care Team Providers Care Medium Cycle Salesperson Name Role Phone Kalen Jose MD Primary Care Provider [phone] Immunizations Immunization Administration Dates Next Due COVID-19 (Pre-08/11) Pfizer Vaccine, mRNA, PF 07/30/2021,07/30/2021,11/01/2020,2019 INFLUENZA, SPLIT VIRUS, TRIVALENT PF 07/14/2025, 07/07/2024 Influenza Quadrivalent Prese rvative Free IM 08/11/2023,07/31/2022 Influenza, Unspecified Formulation 06/29/2021 Tdap 06/30/2015 Social [...] of 2) 2019 COVID-19 VACCINE ( season) 2025 07/30/2021, 07/30/2021, 11/01/2020, Additional history exists Adult Td,Tdap Booster 06/30/2025 06/30/2015 RSV VACCINE (1 - 1-dose 75+ series) 2044 INFLUENZA VACCINE Completed 07/14/2025, , 08/11/2023, Additional history exists HEPATITIS A VACCINES Aged Out No long [...] PPO CIGNA PPO CIGNA PPO CIGNA PPO Member Subscriber Plan / Payer (Ef fective 2021-Present) Name:Xiao William Relation to Subscriber:Self Name:Xiao William Payer ID:[id number] (NAIC) Type:PPO Address: [place] [phone] Care Teams Medium Cycle Salesperson Relationship Specialty Start Date End Date Kalen Jose MD [address] [place] [address] [place] [address] PCP - General Internal Medicine 10/08/21 Additional Source Comments The information contained in this document represents components of the legal health record. It is not the complete legal health record.[facility]
[2025-10-01 12:05] LABS: Anion Gap 12 (12-20); Blood Urea Nitrogen 13 mg/dL (9-16); Calcium 9.7 mg/dL (8.4-10.2); Carbon Dioxide 25 mmol/L (22-29); Chloride 110 mmol/L (96-108); Estimated Glomerular Filt Rate > 60; Potassium 4.6 mmol/L (3.3-5.1); Sodium 142 mmol/L (135-145)
== END 2025-10-01 07:49 | disposition home or self-care (01) ==
LOC: HO.HMGCLDS 07:48
PROVIDERS: PCP Internal Medicine; Visit Provider Student in an Organized Health Care Education/Training Program
DX: M81.0 Age-related osteoporosis without current pathological fracture (principal)
CPT/HCPCS: 36415; 80048

== ENCOUNTER 2025-10-04 14:35 | Outpatient (RCR) | payer OTHER, SELFPAY ==
[2025-10-04 14:37] VITALS: BP 124/77; PULSE 78; RESP 16; TEMP 36.6; O2SAT 96
== END 2025-10-04 15:15 | disposition home or self-care (01) ==
LOC: HO.INF 14:35
PROVIDERS: Visit Provider Student in an Organized Health Care Education/Training Program
DX: M81.0 Age-related osteoporosis without current pathological fracture (principal)
CPT/HCPCS: 96374; J3489